=== PATIENT | female | born 1975 | race Caucasian/White ===

== ENCOUNTER 2019-08-12 16:29 | Inpatient (IN) | payer MEDICAID, SELFPAY ==
[~2019-08-12] VITALS: Ht 160 cm; Wt 106.6 kg
--- NOTE | 2019-08-12 16:32 | NUR ---
BIBA ALS TO BED 10
[2019-08-12] MEDS ORDERED: IBUPROFEN 600 MG TAB ONE (16:35)
[2019-08-12] MEDS ORDERED: ACETAMINOPHEN EXTRA STRENGTH 500 MG TAB ONE (16:36)
[2019-08-12 16:37] VITALS: BP 110/72
--- NOTE | 2019-08-12 16:53 | NUR ---
labs drawn bedside
--- NOTE | 2019-08-12 16:56 | NUR ---
Dr. Shannon evaluating pt at bedside
[2019-08-12] MEDS ORDERED: ACETAMINOPHEN EXTRA STRENGTH 500 MG TAB PO ONE (17:00)
[2019-08-12] MEDS ORDERED: NACL 0.9% 1,000 ML IV ONE (17:00)
--- NOTE | 2019-08-12 17:04 | NUR ---
Note buddyone in EDM - 08/12/19 at 1707 by MEDOF 43/F BIBA FOR FEVER, +COVID ON 08/08, TACHYCARDIA AND TACHYPNEA, COUGH. TACHYPNEIC 42 BUT APPEARS COMFORTABLE AND DENIES SOB, ARRIVES SAT 90% ON 15 NRB. DENIES PAIN. LAST TOOK ANTIPYRETIC AT 10 AM. MEDHX: KASHMIRIES
[2019-08-12] MEDS ORDERED: AZITHROMYCIN 500 MG in DEXTROSE 5% 250 ML IV ONE (17:15)
[2019-08-12] MEDS ORDERED: DEXAMETHASONE 10 MG/ML VIAL IVP ONE (17:15)
--- NOTE | 2019-08-12 17:25 | NUR ---
XRAY AT BEDSIDE
--- NOTE | 2019-08-12 17:27 | NUR ---
EMT AT BEDSIDE FOR EKG
[2019-08-12] MEDS ORDERED: AZITHROMYCIN 500 MG INJ VIAL IV ONE ×2 (17:32→17:54)
[2019-08-12] MEDS ORDERED: cefTRIAXone 1,000 MG VIAL ONE (17:33)
--- NOTE | 2019-08-12 17:38 | NUR ---
BLOOD DRAW HANDED TO SURFACER OPERATOR
--- NOTE | 2019-08-12 17:53 | NUR ---
DR. MARTIN RE-EVALUATING PT AT BEDSIDE
--- NOTE | 2019-08-12 18:04 | NUR ---
RT AT BEDSIDE FOR ABG
[2019-08-12 18:05] LABS: PROTHROMBIN TIME 9.1 secs (10.8-13.4)
[2019-08-12 18:06] LABS: ALBUMIN 2.7 g/dL (3.4-5.0); ANION GAP 16.2 (8-16); CARBON DIOXIDE 26.1 mmol/L (21-32); CREATININE 1.2 mg/dL (0.6-1.3); POTASSIUM 3.3 mmol/L (3.5-5.1); TOTAL BILIRUBIN 0.4 mg/dL (0.0-1.0)
--- NOTE | 2019-08-12 18:30 | NUR ---
PT SATURATING 86-88% ON 15L NRB. DR. MARTIN AND RT MIRANDA PARRA.
[2019-08-12 18:37] LABS: C-REACTIVE PROTEIN QUANT 20.7 mg/dL (0.0-0.9)
[2019-08-12 19:02] LABS: CKMB RELATIVE INDEX 0.1 (0.0-2.5); CREATINE KINASE MB 0.4 ng/mL (0-3.6)
--- NOTE | 2019-08-12 19:05 | NUR ---
Pt report given to FILIPE HARPER. Transfer of care at this time.
[2019-08-12 19:07] LABS: BASOPHILS % (AUTO) 0.6 % (0.0-2.0); HEMATOCRIT 40.6 % (36-48); HEMOGLOBIN 13.4 g/dL (12.0-16.0); LYMPHOCYTES # (AUTO) 0.6 K/uL (2.5-16.5); LYMPHOCYTES % (AUTO) 10.6 % (20.5-51.1); MEAN CORPUSCULAR HEMOGLOBIN 29 pg (27-31); MEAN CORPUSCULAR HGB CONC 33 g/dL (33-37); MEAN CORPUSCULAR VOLUME 88.3 fL (80-94); MONOCYTES # (AUTO) 0.3 K/uL (0.8-1.0); MONOCYTES % (AUTO) 5.2 % (1.7-9.3); NEUTROPHILS # (AUTO) 4.9 K/uL (1.8-7.7); NEUTROPHILS % (AUTO) 83.6 % (42.2-75.2); PLATELET COUNT (AUTO) 227 K/uL (140-450); RED CELL DISTRIBUTION WIDTH 13.3 % (11.6-13.7); WHITE BLOOD COUNT (AUTO) 5.9 K/uL (4.8-10.8)
--- NOTE | 2019-08-12 19:10 | NUR ---
REPORT RECEIVED FROM LEROY ABDALLA FOR CONTINUATION OF CARE.
--- NOTE | 2019-08-12 19:43 | NUR ---
per dr. gomez, pt placed on 50l 100% hfnc. pt saturation around 88-89%. no distress noted. will cont to monitor
[2019-08-12] MEDS ORDERED: ONDANSETRON 4 MG/2 ML VIAL IVP PRN (19:55)
[2019-08-12] MEDS ORDERED: ACETAMINOPHEN 325 MG TAB PO PRN (19:55)
[2019-08-12] MEDS ORDERED: HYDROcodone/APAP 7.5/325 MG 1 TAB PO PRN (19:55)
--- NOTE | 2019-08-12 20:30 | NUR ---
PT RESTING IN BED , LOCKED AND IN LOWEST POSITION, HOB ELEVATED, SIDE RAIL X 2 FOR PT SAFET. A/O X4 , BREATHING EVEN AND UNLABORED. NO ACUTE DISTRESS NOTED AT THIS TIME.
[2019-08-12] MEDS ORDERED: DOCUSATE SODIUM 100 MG GELCAP PO SCH (21:00)
[2019-08-12 21:24] LABS: FREE T4 (FREE THYROXINE) 1.21 ng/dL (0.76-1.46); MAGNESIUM 2.1 mg/dL (1.8-2.4); PHOSPHORUS 2.6 mg/dL (2.5-4.9); THYROID STIMULATING HORMONE 1.02 uIU/mL (0.34-3.74)
[2019-08-12] MEDS ORDERED: DEXTROSE 50% 50 ML SYR IVP PRN (22:00)
--- NOTE | 2019-08-12 23:00 | NUR ---
PT PLACED ON HFNC AT 50L,100% IN ER. NOW PT IS TRANSFERRED TO 106-B. HIGH FLOW PLUGGED INTO RED OUTLET. HEATER ON. PT ALSO HAS A NON REBREATHER ON TOP OF THE NASAL CANNULA. WILL CONT TO MONITOR
[2019-08-12 23:02] LABS: APPEARANCE,URINE SL CLOUDY (CLEAR); BILIRUBIN,URINE NEGATIVE (NEGATIVE); BLOOD, URINE NEGATIVE (NEGATIVE); COLOR,URINE YELLOW (YELLOW); LEUKOCYTE ESTERASE ,URINE TRACE (NEGATIVE); NITRITE, URINE NEGATIVE (NEGATIVE); UGLUCOSE NEGATIVE (NEGATIVE)
[2019-08-12 23:10] VITALS: BP 130/78
--- NOTE | 2019-08-12 23:10 | NUR ---
Patient will be admitted to care of DR. PRATT. Admited to TELEMETRY. Will go to room 106B. Belongings list completed. Report to LEROY BAUTISTA.
--- NOTE | 2019-08-12 23:10 | NUR ---
RECEIVED BEDSIDE REPORT FROM PRINCESS OLIVARES RN. PT IS AAOX4. SOB RR 35 ON NONREBREATHER MASK 15L SAT 87%. C/C HYPOXIA AND DIZZINESS X 1 DAY. COVID + ON 08/08 FROM HOME. CROATIAN SPEAKING. DX:UNSTABLE HYPOXIA, COVID-19. IV ON LAC AC 20G SL. SKIN INTACT. PT IS AMBULATORY PER RN. VS: 102 130/78 HR 87% RR 35 98.7 DENIES PAIN. EDUCATED PT ON PRONE POSITION. ORIENTED PT TO ROOM,STAFF, CALL LIGHT. WILL MONITOR CLOSELY.
[2019-08-12] MEDS: NACL 0.9% 1,000 ML IV SCH (23:49)
[2019-08-13] VITALS (15 sets, daily range): BP systolic 97–147; BP diastolic 45–90
[2019-08-13 00:11] LABS: RBC,URINE 0-5 /HPF (0-5); WBC,URINE 0-5 /HPF (0-5)
--- NOTE | 2019-08-13 00:15 | NUR ---
ASSISTED PT TO BATHROOM, O2 DROP 70%. ASSISTED PT TO BACK TO BED O2 NOW 87% ON NONREBREATHER MASK RR 34.
--- NOTE | 2019-08-13 02:08 | NUR ---
PAGED RT PT RESTLESS SAT 79-81% RR 33. RT AND I ATTEMPT PRONE NO CHANGE IN CONDITION. PAGED DR MOSES.
--- NOTE | 2019-08-13 02:09 | NUR ---
RN CALLED ME TO BEDSIDE PT IS ON HFNC W/ NRB IN PRONE POSITION FOR LAST 1O MIN SPO2 78-81% DR MOSES CAME TO BEDSIDE AND WE WILL MOVE TO ICU
--- NOTE | 2019-08-13 02:10 | NUR ---
DR MOSES ASSESSED PATIENT NEW ORDER FOR ICU TRANSFER AND BIPAP. RT AT BEDSIDE. WILL ARRANGE ICU TRANSFER.
--- NOTE | 2019-08-13 04:00 | NUR ---
TRANSFERRED PT TO ICU BED 2 WITH RT [facility] EMT JOY. GAVE REPORT TO ALEX HARPER. PT TOLERATED TRANSPORT WELL. PT UNSTABLE RR 30 SAT 79% ON NON REBREATHER MASK 15L AND HIGH FLOW 15L.
--- NOTE | 2019-08-13 04:01 | NUR ---
RECEIVED PT VIA ICU BED ON HIGH FLOW 15L AND NON REBREATHER 15L; PT AWAKE ALERT AND ORIENTED.DIVEHI SPEAKING.MONITORS ATTACHED.ST NOTED.TEMP 99.6.PLACED PT ON PRONE POSITION.PT ABLE TO MOVE ALL EXTREMITIES.DEREJE DAVIS.WILL CONTINUE TO CLOSELY MONITOR PT.
--- NOTE | 2019-08-13 04:30 | NUR ---
PT PLACED BACK ON SUPINE POSITION.HOB ELEVATED.SATURATION STILL ON 70'S TO LOW 80'S.RT PLACED PT ON BIPAP FIO2 100% AT THIS TIME. PTS CALLED.UPDATED ON PTS PRESENT CONDITION. ABLE TO SPEAK PORTUGUESE.
--- NOTE | 2019-08-13 04:58 | NUR ---
PT DID NOT TOLERATED HFNC AT 50L/100%. PT NOW PLACED ON BIPAP ON DOCUMENTED SETTINGS. BIPAP PLUGGED INTO RED OUTLET. ALARMS SET. WILL CONT TO MONITOR
--- NOTE | 2019-08-13 06:30 | NUR ---
PT AWAKE; ON BIPAP; REPOSITIONED PT TO RT SIDE; SATURATION 90'S AT THIS TIME.PT DENIES PAIN
--- NOTE | 2019-08-13 07:06 | NUR ---
FNS consult received on 08/13/19 for none given. Consult reason does not meet high risk criteria per hospital policy. Patient will be seen and assessed according to the nutrition care policy. Yessy Seo MS, RDN
--- NOTE | 2019-08-13 07:09 | NUR ---
PATIENT HAS BEEN SCREENED AND CATEGORIZED MODERATE NUTRITION RISK. PATIENT WILL BE SEEN WITHIN 3-5 DAYS OF ADMISSION. 08/15/19-08/17/19 KAYODE MARIO MS, RDN
--- NOTE | 2019-08-13 07:30 | NUR ---
RECEIVED FROM ALLISON HARPER .PT IS SLEEPING QUIETLY ON RT SIDE. BREATHING ON BIPAP O2 SAT IS AT 92% . skin dry and warm. IV FLUID ON LT. AC INFOUSING NS AT80 ML/HR.
[2019-08-13] MEDS: BLOOD GLUCOSE MONITORING 1 DEV DEV FS SCH ×4 (08:00→21:02)
--- NOTE | 2019-08-13 08:00 | NUR ---
BLOOD GLUCOSE 185 INSULIN COVER GIVEN ORDERED,.
[2019-08-13] MEDS ORDERED: MORPHINE SULFATE 2 MG/ML SYR IVP PRN (08:05)
[2019-08-13] MEDS ORDERED: MAG SULF 2000 MG/WATER PREMIX 50 ML IV PRN (08:05)
[2019-08-13] MEDS ORDERED: POTASSIUM CHLORIDE 10 MEQ TABER PO PRN (08:05)
[2019-08-13] MEDS ORDERED: LORazepam 2 MG/ML VIAL IVP PRN (08:05)
[2019-08-13] MEDS ORDERED: ACETAMINOPHEN 325 MG TAB PO PRN (08:05)
[2019-08-13] MEDS ORDERED: ZOLPIDEM 10 MG TAB PO PRN (08:05)
[2019-08-13] MEDS ORDERED: DOCUSATE SODIUM 100 MG GELCAP PO PRN (08:05)
[2019-08-13] MEDS ORDERED: ONDANSETRON 4 MG/2 ML VIAL IVP PRN (08:05)
[2019-08-13] MEDS: ENOXAPARIN 80 MG/0.8 ML SYR SUBQ SCH (09:00)
[2019-08-13] MEDS: AZITHROMYCIN 250 MG TAB PO SCH (09:00)
[2019-08-13] MEDS: ZINC SULF 220 MG CAP PO SCH ×2 (09:00→19:58)
[2019-08-13] MEDS: DEXAMETHASONE 4 MG TAB PO SCH (09:00)
[2019-08-13] MEDS: ASCORBIC ACID 500 MG TAB PO SCH (09:00)
[2019-08-13] MEDS ORDERED: AZITHROMYCIN 250 MG TAB PO SCH (09:00)
[2019-08-13 09:07] LABS: BASOPHILS % (AUTO) 0.1 % (0.0-2.0); HEMATOCRIT 39.3 % (36-48); HEMOGLOBIN 13.1 g/dL (12.0-16.0); LYMPHOCYTES # (AUTO) 0.8 K/uL (2.5-16.5); LYMPHOCYTES % (AUTO) 12.5 % (20.5-51.1); MEAN CORPUSCULAR HEMOGLOBIN 30 pg (27-31); MEAN CORPUSCULAR HGB CONC 33 g/dL (33-37); MEAN CORPUSCULAR VOLUME 88.3 fL (80-94); MONOCYTES # (AUTO) 0.5 K/uL (0.8-1.0); MONOCYTES % (AUTO) 8.6 % (1.7-9.3); NEUTROPHILS % (AUTO) 78.8 % (42.2-75.2); PLATELET COUNT (AUTO) 251 K/uL (140-450); RED BLOOD CELL COUNT(AUTO) 4.45 MIL/uL (4.20-5.40); RED CELL DISTRIBUTION WIDTH 13.1 % (11.6-13.7); WHITE BLOOD COUNT (AUTO) 6.3 K/uL (4.8-10.8)
--- NOTE | 2019-08-13 09:30 | NUR ---
VOIDED CLEAR LEON URINE. DENIE PAIN, DRY COUGH OFTEN.
[2019-08-13 09:36] LABS: ANION GAP 12.8 (8-16); CARBON DIOXIDE 29.1 mmol/L (21-32); CREATININE 0.8 mg/dL (0.6-1.3); POTASSIUM 3.9 mmol/L (3.5-5.1)
[2019-08-13 10:34] LABS: MAGNESIUM 2.2 mg/dL (1.8-2.4)
[2019-08-13 10:37] LABS: CHOL/HDL RATIO 4.5 (1-4.5)
--- NOTE | 2019-08-13 12:00 | NUR ---
BLOOD GLUCOSE 166 DR. GARCIA INFORM HESAID TOHOLD THE INSULIN COVER DUE TO PT. CAN NOT BE OFFROM BIPAP AT THE TIME.
--- NOTE | 2019-08-13 15:20 | NUR ---
PATIENT AIXA CALL AND WANT THE 18 YEARS OLD NIECE TO GET INFORMATION ABOUT PATIENT CONDITION.I TOLD HIM THAT HER THAT I CAN NOT GIVE INFORMATION TO HER. I WILL GIVED TO HER ONLY.
--- NOTE | 2019-08-13 15:30 | NUR ---
DR. LOCK IN THE UNIT . I TOLD THE I WILL HELP DR. LOCK AND WILL HAVE DR LOCK TALK TO HIM.
--- NOTE | 2019-08-13 15:40 | NUR ---
TALK TO AIXA HAYNES [[phone]][facility] MENAGERIE CARETAKER #[id number] TEL HIM THAT PATIENT IS CRITICAL IF SHE IS NOT GETTING BETTER SHE WILL BE INTUBATED. RIGHT NOW PATIENT IS BREATHING ON BI PAP AT 95%FIO2. SHE NEED TO BE RESTED.
[2019-08-13] MEDS: NACL 0.9% 1,000 ML IV SCH ×2 (17:00→23:10)
--- NOTE | 2019-08-13 17:00 | NUR ---
BLOOD GLUCOSE 167 , DR GARCIA AWARE , NO INSULIN GIVEN.
--- NOTE | 2019-08-13 18:00 | NUR ---
PT. RESTING QUIETLY DENIED PAIN.
--- NOTE | 2019-08-13 19:25 | NUR ---
RECEIVED PT FROM DAY SHIFT ON DOCUMENTED SETTINGS. BIPAP PLUGGED INTO RED OUTLET. ALARMS SET. PT IS IN NO DISTRESS. WILL CONT TO MONITOR
--- NOTE | 2019-08-13 20:00 | NUR ---
PATIENT ALERT, AWAKE AND ORIENTED, [place] SPEAKING, SR ON THE MONITOR, RECEIVING IVF NS AT 80 ML/HR, IV SITE ON LEFT HAND g#20 PATENT AND INTACT, ON BIPAP, RATE 18, FIO2 95%. PATIENT WITH INTERMITTENT NON PRODUCTIVE COUGH, ON ENHANCED PRECAUTION FOR POSITIVE COVID 19, CALL LIGHT PLACED WITHIN REACH, DENIES PAIN.
--- NOTE | 2019-08-13 20:45 | NUR ---
RECEIVED CALL FROM PATIENT'S AIXA HAYNES, UPDATES GIVEN ON PATIENT'S CURRENT CONDITION.
[2019-08-13] MEDS: INSULIN LISPRO SLIDING SCALE 100 UNITS/ML VIAL SUBQ PRN (20:52)
--- NOTE | 2019-08-13 22:09 | NUR ---
PATIENT ON LEFT LATERAL SIDE, CONTINUE ON BIPAP, WITH INTERMITTENT NON PRODUCTIVE COUGH, HOB SLIGHTLY ELEVATED, DENIES PAIN.
--- NOTE | 2019-08-13 23:54 | NUR ---
PT SATURATION 81-82%. INCREASED EPAP TO 12. PT IS ALERT AND RESPONSIVE. PT IS TACHYPNEIC HOWEVER. WILL CONT TO MONITOR
[2019-08-14] VITALS (12 sets, daily range): BP systolic 109–141; BP diastolic 63–87
--- NOTE | 2019-08-14 | NUR ---
PATIENT SLEEPING, AROUSABLE, CONTINUE ON BIPAP, FIO2 100%, PATIENT'S SATURATION SLOWLY GOING UP, HOB SLIGHTLY ELEVATED, DENIES PAIN, WILL CONTINUE TO MONITOR.
--- NOTE | 2019-08-14 00:10 | NUR ---
Assumed patient care. Patient is resting in bed. no distress noted. Will continue to monitor. Addendum: 08/14/19 at 0126 by Agency 09 LEROY RN Patient on Bipap; head of bed is elevated and repositioned to the right side for comfort.
--- NOTE | 2019-08-14 01:00 | NUR ---
Patient is resting in bed. No distress noted. Will continue to monitor.
--- NOTE | 2019-08-14 02:00 | NUR ---
Patient is resting in bed with eyes closed. No distress noted. Patient repositioned to supine. Will continue to monitor.
--- NOTE | 2019-08-14 03:50 | NUR ---
PATIENT IS RESTING IN BED AND WAS ABLE TO USE BED DE LA O. 300 MLS OF URINE OUTPUT NOTED. REPOSITIONED AND HELP CLEANED PATIENT..
--- NOTE | 2019-08-14 04:00 | NUR ---
Patient is sitting up in bed. No distress noted. Lung sounds diminished/clear bilaterally. Will continue to monitor.
[2019-08-14 04:53] LABS: BASOPHILS % (AUTO) 0.1 % (0.0-2.0); HEMATOCRIT 40.4 % (36-48); HEMOGLOBIN 13.3 g/dL (12.0-16.0); LYMPHOCYTES # (AUTO) 0.8 K/uL (2.5-16.5); LYMPHOCYTES % (AUTO) 8.7 % (20.5-51.1); MEAN CORPUSCULAR HEMOGLOBIN 29 pg (27-31); MEAN CORPUSCULAR HGB CONC 33 g/dL (33-37); MEAN CORPUSCULAR VOLUME 88.7 fL (80-94); MONOCYTES # (AUTO) 0.7 K/uL (0.8-1.0); MONOCYTES % (AUTO) 7.8 % (1.7-9.3); NEUTROPHILS # (AUTO) 7.9 K/uL (1.8-7.7); NEUTROPHILS % (AUTO) 83.4 % (42.2-75.2); PLATELET COUNT (AUTO) 303 K/uL (140-450); RED BLOOD CELL COUNT(AUTO) 4.55 MIL/uL (4.20-5.40); RED CELL DISTRIBUTION WIDTH 13.2 % (11.6-13.7); WHITE BLOOD COUNT (AUTO) 9.5 K/uL (4.8-10.8)
--- NOTE | 2019-08-14 05:00 | NUR ---
Patient is resting in bed quietly with eyes closed. No distress noted. Will continue to monitor.
[2019-08-14 05:10] LABS: ANION GAP 12.3 (8-16); CARBON DIOXIDE 28.2 mmol/L (21-32); CREATININE 0.8 mg/dL (0.6-1.3); POTASSIUM 3.5 mmol/L (3.5-5.1)
[2019-08-14 05:18] LABS: ALBUMIN 2.5 g/dL (3.4-5.0); BILIRUBIN,DIRECT 0.1 mg/dL (0.0-0.3); TOTAL BILIRUBIN 0.4 mg/dL (0.0-1.0)
--- NOTE | 2019-08-14 06:00 | NUR ---
PATIENT RESTING IN BED QUIETLY. NO DISTRESS NOTED. PATIENT STILL ON BIPAP AT 94%. WILL CONTINUE MONITOR.
[2019-08-14] MEDS: NACL 0.9% 1,000 ML IV SCH (06:21)
--- NOTE | 2019-08-14 07:29 | NUR ---
RECEIVED REPORT FROM PM SHIFT. PATIENT CURRENTLY ON RIGHT LATERAL SIDE, CONTINUE ON BIPAP ON HIGH FLOW O2 AT 95%, O2 CURRENTLY AT 93%. PT HAS INTERMITTENT NON PRODUCTIVE COUGH, HOB SLIGHTLY ELEVATED.
[2019-08-14] MEDS: BLOOD GLUCOSE MONITORING 1 DEV DEV FS SCH ×4 (08:00→21:00)
[2019-08-14] MEDS: AZITHROMYCIN 250 MG TAB PO SCH (08:10)
[2019-08-14] MEDS: ZINC SULF 220 MG CAP PO SCH ×2 (08:10→20:56)
[2019-08-14] MEDS: DEXAMETHASONE 4 MG TAB PO SCH (08:13)
[2019-08-14] MEDS: ASCORBIC ACID 500 MG TAB PO SCH (08:14)
[2019-08-14] MEDS: ENOXAPARIN 80 MG/0.8 ML SYR SUBQ SCH (08:31)
--- NOTE | 2019-08-14 10:17 | NUR ---
PT REQUESTED A BED DE LA O AND WAS ABLE TO URINATE
--- NOTE | 2019-08-14 11:25 | NUR ---
BLOOD SUGAR AT 143. NO INSULIN COVERAGE NEEDED
--- NOTE | 2019-08-14 15:46 | NUR ---
PT RESTING IN BED ON BIPAP. O2 STABLE AT 93 AT THIS TIME. SIDE RAILS UP AND BED IN LOWEST POSITION FOR SAFETY. WILL CONTINUE TO MONITOR.
--- NOTE | 2019-08-14 16:00 | NUR ---
DR. LOCK AT BEDSIDE AND WANT TO HAVE PATIENT BREATHING ON HIGH FLOW. RT AWARE,
--- NOTE | 2019-08-14 16:10 | NUR ---
CYNTHIA LOCK AT [facility] CHANGE OXYGEN SOURCE TO HIGH FLOW Addendum: 08/14/19 at 1650 by Daniel Reyes RT LUGGAGE LINER TO CHECK AVAILABILITY OF HIGH FLOW SYSTEM Addendum: 08/14/19 at 1651 by Daniel Reyes RT CYNTHIA SALDANA HFW IN 118 NOT BEING USED Addendum: 08/14/19 at 1823 by Daniel ISABEL PER ORA /LUGGAGE LINER ACTUAL LOCATION OF HFW IN 114
--- NOTE | 2019-08-14 16:49 | NUR ---
PT BS 157. NO COVERAGE NEEDED, PT IS NPO
--- NOTE | 2019-08-14 18:20 | NUR ---
ENDORSED TO NOC RT'S WITH ACKNOWLEDGEMENT TO PULL HIGH FLOW SYSTEM FROM RM 114 AND TRANSFER TO ICU-2
--- NOTE | 2019-08-14 19:19 | NUR ---
pt condition stable report give to issac garcia.
--- NOTE | 2019-08-14 19:30 | NUR ---
RECEIVED REPORT FROM RNANGELIC. PT RESTING IN BED, A/O X4. KINYARWANDA SPEAKING ONLY. DENIES PAIN UPON QUESTIONING. PUPILS 3MM, PERRL. ON BIPAP WITH FI02 @ 100%. LUNGS WITH CRACKLES THROUGHOUT. + S1, S2 UPON AUSCULTATION. BOWEL SOUNDS ACTIVE X4. NO ABD DISTENTION OR TENDERNESS NOTED. IV NOTED TO LT HAND INFUSING NS @ 80 ML/HR. PT ABLE TO USE THE BEDPAN WITH ASSISTANCE. PEDAL PULSES PALPABLE. SKIN WARM, DRY, AND INTACT. SAFETY PRECAUTIONS IN PLACE WITH BED LOW AND LOCKED. CALL LIGHT IN EASY REACH. WILL CONT TO MONITOR FOR CHANGES.
--- NOTE | 2019-08-14 19:42 | NUR ---
COVID SWAB COLLECTED WITHOUT INCIDENT, PER MD ORDERS. SENT TO LAB.
--- NOTE | 2019-08-14 20:00 | NUR ---
RT ATTEMPTED TO REMOVE BIPAP AND REPLACE WITH HIGH FLOW O2. PT UNABLE TO TOLERATE AT THIS TIME. DESATURATION DOWN IN THE 20'S. BIPAP REPLACED AND SPO2 INCREASED. WILL CONT TO MONITOR.
--- NOTE | 2019-08-14 20:35 | NUR ---
PER REPORT RECEIVED FROM AM SHIFT, PLACED PT ON HFNC. SWITCHED PT HFNC AND PT STARTED DESATURATING IN 50s. PLACED PT BACK ON BiPAP. SPO2 GRADUALLY IMPROVED TO 90%. RESIDENT CATE AT BEDSIDE AND REPORTED CHANGES TO DR. SHAW.
--- NOTE | 2019-08-14 21:00 | NUR ---
RBS 173. INSULIN ADMINISTERED ORDERED.
[2019-08-14] MEDS ORDERED: SUCCINYLCHOLINE CHLORIDE 200 MG/10 ML VIAL IVP ONE (21:10)
[2019-08-14] MEDS ORDERED: ETOMIDATE 20 MG/10 ML VIAL IVP ONE (21:10)
[2019-08-14] MEDS: INSULIN LISPRO SLIDING SCALE 100 UNITS/ML VIAL SUBQ PRN (22:23)
--- NOTE | 2019-08-14 23:35 | NUR ---
PT DESATING, RESIDENT LINDER DISCUSSING INTUBATING WITH FAMILY.
[2019-08-15] VITALS (15 sets, daily range): BP systolic 105–186; BP diastolic 64–101
[2019-08-15] MEDS: NACL 0.9% 1,000 ML IV SCH ×3 (00:10→23:54)
--- NOTE | 2019-08-15 02:00 | NUR ---
PT SATING BETWEEN 70-90 ON BIPAP. MD AWARE. NO INTUBATION AT THIS TIME. EDUCATED PT ON IMPORTANCE OF REPOSITIONING, INCLUDING PRONE POSITIONING. WILL CONT TO MONITOR.
--- NOTE | 2019-08-15 04:00 | NUR ---
BED BATH ADMINISTERED. PT MENSTRUATING AT THIS TIME. DANIEL PADS/BRIEFS GIVEN. WILL FOLLOW UP.
[2019-08-15 06:31] LABS: BASOPHILS % (AUTO) 0.2 % (0.0-2.0); HEMATOCRIT 38.9 % (36-48); HEMOGLOBIN 13.2 g/dL (12.0-16.0); LYMPHOCYTES # (AUTO) 0.7 K/uL (2.5-16.5); LYMPHOCYTES % (AUTO) 6.5 % (20.5-51.1); MEAN CORPUSCULAR HEMOGLOBIN 30 pg (27-31); MEAN CORPUSCULAR HGB CONC 34 g/dL (33-37); MONOCYTES # (AUTO) 0.6 K/uL (0.8-1.0); MONOCYTES % (AUTO) 5.6 % (1.7-9.3); NEUTROPHILS # (AUTO) 9.6 K/uL (1.8-7.7); NEUTROPHILS % (AUTO) 87.7 % (42.2-75.2); PLATELET COUNT (AUTO) 308 K/uL (140-450); RED BLOOD CELL COUNT(AUTO) 4.42 MIL/uL (4.20-5.40)
[2019-08-15] MEDS: BLOOD GLUCOSE MONITORING 1 DEV DEV FS SCH ×4 (06:50→21:00)
[2019-08-15 06:52] LABS: ANION GAP 17.2 (8-16); CARBON DIOXIDE 28.3 mmol/L (21-32); CREATININE 0.8 mg/dL (0.6-1.3); POTASSIUM 3.5 mmol/L (3.5-5.1)
--- NOTE | 2019-08-15 06:55 | NUR ---
DR. OUSMANE GARCIA IN ICU REVIEWED HHN THERAPY OK FOR OXYACETYLENE TORCH OPERATOR TO ORDER HHN THERAPY FOLLOWS: DUO Q6WW + Q4PRN FOR SOB/WHEEZE
--- NOTE | 2019-08-15 07:15 | NUR ---
REPORT GIVEN TO RASHAAD RN, SHEA AT BEDSIDE, FOR CONTINUITY OF CARE. VSS AT THIS TIME.
--- NOTE | 2019-08-15 08:00 | NUR ---
RECEIVED REPORT FROM SHEA HARPER. PT RESTING IN BED, A/O X4. SINHALA SPEAKING ONLY. DENIES PAIN UPON QUESTIONING. PT ON BIPAP WITH FI02 @ 100%. LUNGS WITH CRACKLES THROUGHOUT. TACHYPNEA. LABORED BREATHING WITH COUGHING. + S1, S2 UPON AUSCULTATION. BOWEL SOUNDS ACTIVE X4. NO ABD DISTENTION OR TENDERNESS NOTED. PT HAS IV NOTED TO LT HAND INFUSING NS @ 80 ML/HR. PT ABLE TO USE THE BEDPAN WITH ASSISTANCE. PT CURRENTLY ON MENSTRUAL CYCLE. PEDAL PULSES PALPABLE. SKIN WARM, DRY, AND INTACT. SAFETY PRECAUTIONS IN PLACE WITH BED LOW AND LOCKED. PT ENCOURAGED TO TURN Q2 HOURS. CALL LIGHT IN EASY REACH. WILL CONT TO MONITOR FOR CHANGES. WILL USE BOOKKEEPING ASSISTANT PHONE TO SPEAK WITH PT
[2019-08-15] MEDS ORDERED: ALBUTEROL SULFATE/IPRATROPIU 3 ML SOL IH PRN (08:45)
[2019-08-15] MEDS: ASCORBIC ACID 500 MG TAB PO SCH (09:19)
[2019-08-15] MEDS: ZINC SULF 220 MG CAP PO SCH ×2 (09:19→20:45)
[2019-08-15] MEDS: AZITHROMYCIN 250 MG TAB PO SCH (09:19)
[2019-08-15] MEDS: ENOXAPARIN 80 MG/0.8 ML SYR SUBQ SCH (09:19)
[2019-08-15] MEDS: DEXAMETHASONE 4 MG TAB PO SCH (09:21)
[2019-08-15] MEDS ORDERED: CRUSHER, PILL MC ONE (09:27)
--- NOTE | 2019-08-15 10:50 | NUR ---
lab at bedside
--- NOTE | 2019-08-15 11:02 | NUR ---
PAGED DR. ISMAEL NEWBY [phone] TO REVIEW [facility] SAMPLE REPORT Addendum: 08/15/19 at 1106 by Daniel Reyes RT CALL BACK NUMBER [phone]
--- NOTE | 2019-08-15 11:05 | NUR ---
CALL BACK FROM ISMAEL NEWBY REVIEWED [facility] SAMPLE REPORT, LOC AWAKE AND ALERT "SPEAKING ON PHONE", CURRENT BIPAP SETTINGS 26/11 R14 100%, CIONTINUE WITH HHN THERAPY NEW ORDER: REPOSITION PATIENT SFW TO HFW POSITION, "WATCH" MD STATES "PATIENT ON THE CUSP OF BEING INTUBATED"
--- NOTE | 2019-08-15 11:30 | NUR ---
L HAND IV LEAKING. DISCONTINUED. NEW 20G TO R AC INSERTED. NACL INFUSING INTO R AC AT 80MLS/HR.
--- NOTE | 2019-08-15 12:16 | NUR ---
USED TRANSLATER PHONE, #[phone], TO SPEAK WITH PT. CALLED PTS AND GAVE UPDATE
--- NOTE | 2019-08-15 12:17 | NUR ---
PT ASSISTED WITH BEDPAN, URINE OUTPUT 500 ML
[2019-08-15] MEDS: INSULIN LISPRO SLIDING SCALE 100 UNITS/ML VIAL SUBQ PRN ×2 (12:31→16:19)
[2019-08-15] MEDS ORDERED: ALBUTEROL SULFATE/IPRATROPIU 3 ML SOL IH SCH (13:00)
[2019-08-15] MEDS: ALBUTEROL SULFATE/IPRATROPIU 3 ML SOL IH SCH ×2 (14:12→19:00)
--- NOTE | 2019-08-15 14:12 | NUR ---
AWAKE AND ALERT RESPONSIVE TO BAIL AGENT VERBAL TOLERATING BIPAP TO MASK WITHOUT COMPLICATIONS GOOD CHEST SPONTANEOUS EXPIRATORY Vt GREATER THAN 600ml POST PER IDEAL BODY FORMULA 8CC = 410ml HHN THERAPY DECREASE IPAP TO 16 JAGJIT/RN NOTIFIED
--- NOTE | 2019-08-15 14:44 | NUR ---
J2EE ANDROID DEVELOPER NOTE: ANTHONY WAS UNABLE TO MEET PATIENT AT BEDSIDE. ANTHONY LEFT WITH AIXA HAYNES [phone]. ANTHONY WILL FOLLOW UP. Addendum: 08/16/19 at 1020 by Abdoul Chapman SS [facility] Patient: Elena LosElva vance : 1975 Age/Sex: 43/F Unit#: [id number] Room/Bed: IC02/A User: Abdoul Chapman Date: 08/16/19 10:17 Type: CM Discharge Plan Assessment Patient's Orientation Person Situation Place Time Information Provided By AIXA HAYNES - TREVOR Comments SW WAS UNABLE TO MEET WITH PATIENT DUE TO MEDICAL CONDITION. Electronic Test Technician, Realtionship and Phone Number AIXA HAYNES TREVOR [phone] [facility] Power of Production Assistant No Does Patient Have a POLST No Identifying Problems No Social Work Triggers Is A Social Work Consult Needed No Mandate Report Filed No Explanation Of Identifying Problems PATIENT IS A 43-YEAR-OLD FEMALE ADMITTED FOR PNEUMONIA AND COVID R/O. PATIENT HAS NO PERTINENT PMHX. Admitted From Home Pre-Admission Level Of Functioning Status Independent/Ambulatory Prior Resources/Services Used In Last 12 Months No Prior Resources Used Prior DME No Prior DME Used Living Situation Lives With Family House Patient Had Caregiver No Home Support No Caregiver Issues Financial Issues No Known Financial Issue Factors/Needs No D/C Needs Identified Pt/Rep Participated In Discharge Plan Yes Patient/Family Agress With Discharge Plan Yes Discharge Plan Comments TENTATIVE DISCHARGE PLAN IS FOR PATIENT TO RETURN HOME. DC Plan Status Initiated Addendum: 09/08/19 at 1343 by Abdoul Chapman SW FOLLOWED UP WITH PATIENT'S AIXA HAYNES [phone]. SW LEFT VM.
[2019-08-15] MEDS ORDERED: remdesivir COMMUNICATION ORDER 1 EA MISC MC PRN (15:55)
--- NOTE | 2019-08-15 16:00 | NUR ---
CALLED PHARMACY FOR RESEVEMIR, STATES THEY ARE RUNNING LATE AND WILL BRING ALESSIA
--- NOTE | 2019-08-15 16:20 | NUR ---
ASSISTED 0PT ONTO BEDPAN, OUTPUT 350 ML
[2019-08-15 17:17] LABS: ALBUMIN 2.5 g/dL (3.4-5.0); ANION GAP 16.3 (8-16); CARBON DIOXIDE 26.3 mmol/L (21-32); CREATININE 0.8 mg/dL (0.6-1.3); POTASSIUM 3.6 mmol/L (3.5-5.1); TOTAL BILIRUBIN 0.5 mg/dL (0.0-1.0)
[2019-08-15] MEDS ORDERED: CLINICAL MONITORING MC PRN (17:25)
[2019-08-15] MEDS ORDERED: remdesivir 200 mg in NACL 0.9% 100 ML IV SCH (18:00)
--- NOTE | 2019-08-15 19:15 | NUR ---
RECEIVED REPORT FROM RNJAGJIT. PT RESTING IN BED, A/O X4. MALDIVIAN SPEAKING ONLY. DENIES PAIN UPON QUESTIONING. PUPILS 3MM, PERRL. ON BIPAP WITH FI02 @ 100%. LUNGS WITH CRACKLES THROUGHOUT. + S1, S2 UPON AUSCULTATION. BOWEL SOUNDS ACTIVE X4. NO ABD DISTENTION OR TENDERNESS NOTED. 20G SALINE-LOCKED IV NOTED TO RT AC INFUSING NS @ 80 ML/HR. LT AC, SALINE-LOCKED, IV PATENT. PT ABLE TO USE THE BEDPAN WITH ASSISTANCE. CONTINUES ON MENSTRUAL PERIOD. PEDAL PULSES PALPABLE. SKIN WARM, DRY, AND INTACT. SAFETY PRECAUTIONS IN PLACE WITH BED LOW AND LOCKED. CALL LIGHT IN EASY REACH. WILL CONT TO MONITOR FOR CHANGES.
--- NOTE | 2019-08-15 19:25 | NUR ---
SHIFT REPORT GIVEN TO MAJO RN, TRANSFER OF CARE
--- NOTE | 2019-08-15 22:00 | NUR ---
STARTED INFUSING 1ST BAG OF CONVALESCENT PLASMA @ THIS TIME. NO IMMEDIATE REACTION OBSERVED. WILL MONITOR CLOSELY.
--- NOTE | 2019-08-15 23:00 | NUR ---
RESIDENT NIYAH CORRALES DISCUSSING INTUBATING WITH FAMILY. Addendum: 08/15/19 at 2335 by Margaret Pérez RN ERROR. WRONG DOCUMENTATION
[2019-08-16] VITALS (17 sets, daily range): BP systolic 113–159; BP diastolic 74–92
--- NOTE | 2019-08-16 | NUR ---
REMDESIVIR ADMINISTERED ORDERED @ THIS TIME. NO IMMEDIATE REACTION OBSERVED. WILL CONT TO MONITOR CLOSELY.
--- NOTE | 2019-08-16 00:56 | NUR ---
CALLED TO BEDSIDE PT DESAT MID 70s DUE TO MASK BEING LOOSE ON ONE SIDE I PROPERLY REFIT MASK PRIOR DUE TO STRAP BEING LOOSE WELL PT SEEMS TO BE COMPLIANT UNCLEAR TO WHY STRAP IS LOOSE PT SPO2 75-82 FLUCTUATION AT THIS TIME
--- NOTE | 2019-08-16 01:09 | NUR ---
EPAP TITRATED TO 12 TO ASSIST W/ OXYGENATION NO CHANGE ON IPAP SHE IS RECEIVING ADEQUATE VOLUMES AT THIS TIME SPO2 NOW READING 87% Addendum: 08/16/19 at 0127 by Cornell Irwin Jr RT IPAP TITRATED TO 17
--- NOTE | 2019-08-16 02:00 | NUR ---
ASSISTED PT TO REPOSITION. DENIES PAIN UPON QUESTIONING. SAFETY PRECAUTIONS IN PLACE WITH BED LOW AND LOCKED. CALL LIGHT IN EASY REACH. WILL CONT TO MONITOR FOR CHANGES.
--- NOTE | 2019-08-16 04:00 | NUR ---
BED BATH PROVIDED. PT CONTINUES SATING IN THE 80'S WITH BIPAP. AWARE. WILL CONT TO MONITOR.
--- NOTE | 2019-08-16 06:15 | NUR ---
REPORT GIVEN AT BEDSIDE TO RASHAAD HARPER FOR CONTINUITY OF CARE. Addendum: 08/16/19 at 0721 by Margaret Pérez RN ERROR WRONG DOCUMENTATION
[2019-08-16] MEDS: BLOOD GLUCOSE MONITORING 1 DEV DEV FS SCH ×4 (06:34→21:11)
[2019-08-16 06:47] LABS: ALBUMIN 2.4 g/dL (3.4-5.0); ANION GAP 14.1 (8-16); CARBON DIOXIDE 27.4 mmol/L (21-32); CREATININE 0.7 mg/dL (0.6-1.3); POTASSIUM 3.5 mmol/L (3.5-5.1); TOTAL BILIRUBIN 0.5 mg/dL (0.0-1.0)
[2019-08-16 06:50] LABS: BASOPHILS % (AUTO) 0.2 % (0.0-2.0); EOSINOPHILS % (AUTO) 0.1 % (0.0-4.0); HEMATOCRIT 38.5 % (36-48); HEMOGLOBIN 12.7 g/dL (12.0-16.0); LYMPHOCYTES # (AUTO) 0.6 K/uL (2.5-16.5); LYMPHOCYTES % (AUTO) 4.6 % (20.5-51.1); MEAN CORPUSCULAR HEMOGLOBIN 29 pg (27-31); MEAN CORPUSCULAR HGB CONC 33 g/dL (33-37); MEAN CORPUSCULAR VOLUME 88.2 fL (80-94); MONOCYTES # (AUTO) 0.4 K/uL (0.8-1.0); NEUTROPHILS % (AUTO) 92.1 % (42.2-75.2); PLATELET COUNT (AUTO) 260 K/uL (140-450); RED BLOOD CELL COUNT(AUTO) 4.36 MIL/uL (4.20-5.40); RED CELL DISTRIBUTION WIDTH 13.4 % (11.6-13.7); WHITE BLOOD COUNT (AUTO) 14.1 K/uL (4.8-10.8)
--- NOTE | 2019-08-16 07:15 | NUR ---
REPORT GIVEN AT BEDSIDE TO DAYSHIFT RN FOR CONTINUITY OF CARE.
--- NOTE | 2019-08-16 08:00 | NUR ---
RECEIVED REPORT FROM MAJO HARPER. PT RESTING IN BED, A/O X4. FRENCH SPEAKING ONLY. DENIES PAIN. PUPILS 3MM, PERRL. ON BIPAP WITH FI02 @ 100%. LUNGS WITH CRACKLES THROUGHOUT. + S1, S2 UPON AUSCULTATION. BOWEL SOUNDS ACTIVE X4. NO ABD DISTENTION OR TENDERNESS NOTED. 20G SALINE-LOCKED IV NOTED TO RT AC INFUSING NS @ 80 ML/HR. LT AC, SALINE-LOCKED, IV PATENT. PT ABLE TO USE THE BEDPAN WITH ASSISTANCE. CONTINUES ON MENSTRUAL PERIOD. PEDAL PULSES PALPABLE. SKIN WARM, DRY, AND INTACT. PT CONSUMED 100% CONSISTENT CARB DIET FOR DINNER PM SHIFT. NO BM LAST NIGHT. PT RECEIVED PLASMA AND RESEVEMIR PM SHIFT. SAFETY PRECAUTIONS IN PLACE WITH BED LOW AND LOCKED. CALL LIGHT IN EASY REACH. WILL CONT TO MONITOR FOR CHANGES
[2019-08-16] MEDS: ZINC SULF 220 MG CAP PO SCH ×2 (08:10→20:59)
[2019-08-16] MEDS: ASCORBIC ACID 500 MG TAB PO SCH (08:10)
[2019-08-16] MEDS: ENOXAPARIN 80 MG/0.8 ML SYR SUBQ SCH (08:11)
[2019-08-16] MEDS: DEXAMETHASONE 4 MG TAB PO SCH (08:11)
[2019-08-16] MEDS: ALBUTEROL SULFATE/IPRATROPIU 3 ML SOL IH SCH ×3 (08:24→22:05)
--- NOTE | 2019-08-16 08:33 | NUR ---
AM MEDICATIONS ADMINISTERED. TRANSLATED TO NEPALI. PT CONSUMED 237 ML OF GLUCERNA. PT DENIES PAIN. RT AT BEDSIDE.
--- NOTE | 2019-08-16 10:32 | NUR ---
CALLED DR. AMY NEFF [phone] REVIEWED ABG SAMPLE REPORT NO NEW ORDERS
--- NOTE | 2019-08-16 10:48 | NUR ---
PT ASSISTED ONTO BEDPAN 400 ML URINE OUTPUT, CONSUMED 25%BREAKFAST. ORAL CARE PROVIDED, BED LINENS CHANGED
[2019-08-16] MEDS: INSULIN LISPRO SLIDING SCALE 100 UNITS/ML VIAL SUBQ PRN ×3 (12:11→21:12)
[2019-08-16] MEDS: NACL 0.9% 1,000 ML IV SCH (12:11)
--- NOTE | 2019-08-16 13:54 | NUR ---
CALLED PHARMACY FOR SECOND PLASMA, STATES THEY ARE STILL PREPARING UNIT
--- NOTE | 2019-08-16 14:55 | NUR ---
2 NURSE CO-SIGN FOR PLASMA ADMINISTRATION, CONSENT OBTAINED. PLASMA STARTED AT 1455. WILL MONITOR FOR REACTIONS.
--- NOTE | 2019-08-16 14:55 | NUR ---
08/16/19 RD INITIAL ASSESSMENT COMPLETED PLEASE REFER TO NUTRITION ASSESSMENT UNDER CARE ACTIVITY FOR ESTIMATED NUTRITIONAL NEEDS. 1. CONTINUE CCHO MECHANICAL SOFT DIET TOLERATED 2. CONTINUE GLUCERNA TID 3. IF PATIENT IS UNABLE TO TOLERATE PO INTAKE CONSIDER NUTRITION SUPPORT 4. RD TO FOLLOW-UP 2-3 DAYS, HIGH RISK ONESIMO JACINTO RD
--- NOTE | 2019-08-16 15:10 | NUR ---
NO SIDE EFFECTS TO PLASMA, WILL CONTINUE TO MONITOR
--- NOTE | 2019-08-16 15:45 | NUR ---
PLASMA INFUSION ENDED
[2019-08-16] MEDS: remdesivir 100 mg in NACL 0.9% 100 ML IV SCH (18:31)
--- NOTE | 2019-08-16 19:15 | NUR ---
RECEIVED REPORT FROM RNJAGJIT. PT IN BED USING CELL PHONE, A/O X4. SLOVAK SPEAKING ONLY. DENIES PAIN UPON QUESTIONING. PUPILS 3MM, PERRL. ON BIPAP WITH FI02 @ 100%. SPO2 85%. LUNGS WITH CRACKLES THROUGHOUT. +S1, S2 UPON AUSCULTATION. BOWEL SOUNDS ACTIVE X4. NO ABD DISTENTION OR TENDERNESS NOTED. 20G SALINE-LOCKED IV NOTED TO RT AC INFUSING NS @ 80 ML/HR. LT AC, SALINE-LOCKED, IV PATENT. PT ABLE TO USE THE BEDPAN WITH ASSISTANCE. CONTINUES ON MENSTRUAL PERIOD. PEDAL PULSES PALPABLE. SKIN WARM, DRY, AND INTACT. SAFETY PRECAUTIONS IN PLACE WITH BED LOW AND LOCKED. CALL LIGHT IN EASY REACH. WILL CONT TO MONITOR FOR CHANGES.
--- NOTE | 2019-08-16 21:00 | NUR ---
RBS 225 AT THIS TIME. INSULIN ADMINISTERED ORDERED. BED LOW AND LOCKED. CALL LIGHT WITHIN EASY REACH. WILL CONT TO MONITOR.
--- NOTE | 2019-08-16 22:07 | NUR ---
RECEIVED PT ON BIPAP. SETTINGS 17/12, R14 AND FIO2 100%. PT IS AWAKE AND ALERT IN BED WATCHING TV. PT IS TACHYPNEIC AT THIS TIME. BIPAP IS PLUGGED INTO A RED OUTLET WITH ALARMS ON AND FUNCTIONING. WILL CONTINUE TO MONITOR.
[2019-08-17] VITALS (13 sets, daily range): BP systolic 113–158; BP diastolic 46–112
--- NOTE | 2019-08-17 | NUR ---
ASSISTED PT TO REPOSITION. VOIDED IN BEDPAN WITH ASSISTANCE. CONTINUES ON MENSTRUAL PERIOD. DENIES PAIN UPON QUESTIONING. SPO2 IN THE 80S. MD AWARE. SAFETY PRECAUTIONS IN PLACE WITH BED LOW AND LOCKED. CALL LIGHT IN EASY REACH. WILL CONT OT MONITOR FOR CHANGES.
--- NOTE | 2019-08-17 01:10 | NUR ---
PT DESATURATING TO MID 80'S MADE AWARE. WILL INCREASE EPAP. AND PRN BREATHING TX TO BE ADMINISTERED. WILL CONTINUE TO MONITOR.
--- NOTE | 2019-08-17 02:00 | NUR ---
EDUCATED PT ON IMPORTANCE OF REPOSITIONING. PT VERBALIZED UNDERSTANDING. DENIES PAIN. WILL CONT TO MONITOR
[2019-08-17] MEDS: NACL 0.9% 1,000 ML IV SCH ×2 (02:10→14:47)
--- NOTE | 2019-08-17 04:00 | NUR ---
SPONGE BATH PROVIDED. DENIES PAIN. WILL CONT TO MONITOR FOR CHANGES
--- NOTE | 2019-08-17 05:26 | NUR ---
PT REMAINS ON BIPAP AT THIS TIME. NOT IN ANY DISTRESS PT ASLEEP SPO2 88%.
[2019-08-17 06:30] LABS: BASOPHILS % (AUTO) 0.3 % (0.0-2.0); EOSINOPHILS % (AUTO) 0.3 % (0.0-4.0); HEMATOCRIT 37.4 % (36-48); HEMOGLOBIN 12.4 g/dL (12.0-16.0); LYMPHOCYTES # (AUTO) 0.9 K/uL (2.5-16.5); LYMPHOCYTES % (AUTO) 5.5 % (20.5-51.1); MEAN CORPUSCULAR HEMOGLOBIN 29 pg (27-31); MEAN CORPUSCULAR HGB CONC 33 g/dL (33-37); MEAN CORPUSCULAR VOLUME 87.6 fL (80-94); MONOCYTES # (AUTO) 0.4 K/uL (0.8-1.0); MONOCYTES % (AUTO) 2.8 % (1.7-9.3); NEUTROPHILS # (AUTO) 14.2 K/uL (1.8-7.7); NEUTROPHILS % (AUTO) 91.1 % (42.2-75.2); PLATELET COUNT (AUTO) 263 K/uL (140-450); RED BLOOD CELL COUNT(AUTO) 4.27 MIL/uL (4.20-5.40); RED CELL DISTRIBUTION WIDTH 12.9 % (11.6-13.7); WHITE BLOOD COUNT (AUTO) 15.5 K/uL (4.8-10.8)
[2019-08-17] MEDS: BLOOD GLUCOSE MONITORING 1 DEV DEV FS SCH ×4 (06:34→22:30)
--- NOTE | 2019-08-17 06:40 | NUR ---
RBS 114 AT THIS TIME. NO INSULIN ADMINISTERED PER MD ORDER. WILL CONT TO MONITOR
[2019-08-17 06:56] LABS: ANION GAP 14.2 (8-16); CARBON DIOXIDE 28.1 mmol/L (21-32); CREATININE 0.6 mg/dL (0.6-1.3); POTASSIUM 3.3 mmol/L (3.5-5.1)
--- NOTE | 2019-08-17 07:14 | NUR ---
RECEIVED REPORT FROM MAJO HARPER. PT RESTING IN BED, A/O X4. SAMI SPEAKING ONLY. DENIES PAIN. ON BIPAP WITH FI02 @ 100%. LUNGS WITH CRACKLES THROUGHOUT. + S1, S2 UPON AUSCULTATION. BOWEL SOUNDS ACTIVE X4. NO ABD DISTENTION OR TENDERNESS NOTED. 20G SALINE-LOCKED IV NOTED TO RT AC INFUSING NS @ 80 ML/HR. LT AC, SALINE-LOCKED, IV PATENT. PT ABLE TO USE THE BEDPAN WITH ASSISTANCE. CONTINUES ON MENSTRUAL PERIOD. PEDAL PULSES PALPABLE. SKIN WARM, DRY, AND INTACT. PT ON CONSISTENT CARB DIET WITH GLUCERNA SUPPLEMENT. PT RECEIVED SECOND PLASMA AND REDESEMIR YESTERDAY DAY SHIFT. SAFETY PRECAUTIONS IN PLACE WITH BED LOW AND LOCKED. CALL LIGHT IN EASY REACH. WILL CONT TO MONITOR FOR CHANGES
[2019-08-17 07:17] LABS: ALBUMIN 2.5 g/dL (3.4-5.0); BILIRUBIN,DIRECT 0.2 mg/dL (0.0-0.3); TOTAL BILIRUBIN 0.5 mg/dL (0.0-1.0)
[2019-08-17] MEDS: DEXAMETHASONE 4 MG TAB PO SCH (09:07)
[2019-08-17] MEDS: ZINC SULF 220 MG CAP PO SCH ×2 (09:07→22:00)
[2019-08-17] MEDS: ASCORBIC ACID 500 MG TAB PO SCH (09:07)
[2019-08-17] MEDS: ENOXAPARIN 80 MG/0.8 ML SYR SUBQ SCH (09:08)
[2019-08-17] MEDS: ALBUTEROL SULFATE/IPRATROPIU 3 ML SOL IH SCH ×3 (09:10→20:16)
--- NOTE | 2019-08-17 11:18 | NUR ---
DISCHARGE PLANNING: THIS IS A 43 YO FEMALE FROM HOME, WHO CAME IN DUE TO FEVERS AND SOB. NO PAST MEDICAL HISTORY. CURRENT LABS INCLUDE WBC 15.5, H/H 12.4/37.4, BUN/CREA 141/3.3, BUN/CREA 13/0.6, ALB 2.5. COVID POSITIVE. ON REMDESIVIR, DECADRON. BLOOD CS NO GROWTH AFTER 48 HOURS. ON BIPAP 100% FIO2. ID, CARDIO AND PULMO CONSULTS IN PLACE. DC PLAN PENDING ON PATIENT'S RESPONSE TO TREATMENT. Addendum: 08/18/19 at 1224 by Dania Almendarez CM CURRENT CXR SHOWED INTERVAL IMPROVEMENT OF BILATERAL PULMONARY OPACITIES, WITH HAZY INFILTRATES IN THE LOWER LUNG ZONES. ON BIPAP, FIO2 100%, O2 SAT 91%. CURRENT LABS INCLUDE WBC 13.7, H/H 13.0/39.7, NA/K 137/4.0, 15/0.8 AND ALB 2.4. D DIMER 4560, FIBRINOGEN 500. DECADRON, REMDESIVIR. PULMO, CARDIO AND ID CONSULTS IN PLACE. Addendum: 08/19/19 at 1101 by Dania Almendarez CM CURRENT LABS INCLUDE WBC 13.9, H/H 12.8/38.7, NA/K 139/3.9, BUN/CREA 10/0.6, ALB 2.4, CRP 21.4. ON BIPAP 100% FIO2, O2 SAT 86%. ON REMDESIVIR, DECADRON. SEEN BY ID - TO CONTINUE CURRENT THERAPY. Addendum: 08/19/19 at 1132 by Cherrie Suarez CM RECEIVED [facility] EVAL, FAXED PATIENTS PACKET TO [facility]. WILL FOLLOW UP Addendum: 08/19/19 at 1319 by Dania Almendarez CM [facility] THEY ARE NOT ABLE TO TAKE MEDICAL PATIENTS AT THIS TIME. THEY CAN ONLY TAKE ETT TO VENT BUT NOT COVID POSITIVE PATIENTS. Addendum: 08/19/19 at 1341 by Dania Almendarez CM DR. PARKS MADE AWARE. Addendum: 08/22/19 at 1239 by Dania Almendarez CM CURRENT LABS INCLUDE WBC 16.3, H/H 14.5/44.1, NA/K 138/3.8, BUN/CREA 15/0.7, ALB 2.7. ON BIPAP O2 SAT 94%. ON ZOSYN, DECADRON. BLOOD CS NO GROWTH. URINE CS MIXED WITH UROGENITAL INNA. DC PLAN PENDING ON PATIENT'S RESPONSE TO TREATMENT. Addendum: 08/23/19 at 1433 by Dania Almendarez CM ON BIPAP, FIO2 100%, O2 SAT 92-94%. ON ZOSYN, DECADRON. CURRENT CXR SHOWED SLIGHT IMPROVEMENT IN DIFFUSE PATCHY EDEMA VS INFILTRATEIN THE LUNG BASE WHICH MAYBE RELATED TO IMPROVED AERATION. Addendum: 08/24/19 at 1557 by Dania Almendarez CM ON BIPAP STILL. SEEN BY JANETH - DOWNGRADE TO TELE ON MONITOR BED. STILL ON ZOSYN, DECADRON. Addendum: 09/01/19 at 1207 by Dania Almendarez CM RECEIVED A CALL FROM [facility], STATING THAT THEY ARE NOT ABLE TO ACCEPT STRAIGHT MEDICAL AND COVID POSITIVE PATIENTS, ONLY ETT BUT NO COVID. Addendum: 09/06/19 at 1540 by Dania Almendarez CM ON HIGH FLOW O2, O2 SAT 88%. ON SOLU MEDROL. PER ATTENDING, CONT HIGH FLOW 02, WEAN IF POSSIBLE. PULMO AND ID CONSULTS IN PLACE.
[2019-08-17] MEDS: INSULIN LISPRO SLIDING SCALE 100 UNITS/ML VIAL SUBQ PRN ×3 (11:39→22:37)
--- NOTE | 2019-08-17 15:07 | NUR ---
PT ASSISTED ONTO BEDPAN. PT HAD GOOD APPETITE FOR BREAKFAST. DENIES PAIN. HOB ELEVATED. PT CURRENTLY WATCHING TV.
[2019-08-17] MEDS: remdesivir 100 mg in NACL 0.9% 100 ML IV SCH (17:45)
[2019-08-17] MEDS ORDERED: POTASSIUM CHLORIDE 10 MEQ TABER PO ONE (22:40)
[2019-08-18] VITALS (12 sets, daily range): BP systolic 35–166; BP diastolic 70–102
[2019-08-18] MEDS: NACL 0.9% 1,000 ML IV SCH ×2 (03:30→16:00)
[2019-08-18 06:07] LABS: LD2 FRACTION 27 % (25-40); LD5 FRACTION 13 % (4-20)
[2019-08-18 06:54] LABS: BASOPHILS # (AUTO) 0.1 K/uL (0.00-0.22); BASOPHILS % (AUTO) 0.4 % (0.0-2.0); EOSINOPHILS % (AUTO) 0.1 % (0.0-4.0); HEMATOCRIT 39.7 % (36-48); LYMPHOCYTES # (AUTO) 0.6 K/uL (2.5-16.5); LYMPHOCYTES % (AUTO) 4.5 % (20.5-51.1); MEAN CORPUSCULAR HEMOGLOBIN 29 pg (27-31); MEAN CORPUSCULAR HGB CONC 33 g/dL (33-37); MEAN CORPUSCULAR VOLUME 88.2 fL (80-94); MONOCYTES # (AUTO) 0.3 K/uL (0.8-1.0); MONOCYTES % (AUTO) 2.5 % (1.7-9.3); NEUTROPHILS # (AUTO) 12.7 K/uL (1.8-7.7); NEUTROPHILS % (AUTO) 92.5 % (42.2-75.2); PLATELET COUNT (AUTO) 289 K/uL (140-450); RED CELL DISTRIBUTION WIDTH 13.2 % (11.6-13.7); WHITE BLOOD COUNT (AUTO) 13.7 K/uL (4.8-10.8)
[2019-08-18 07:19] LABS: ALBUMIN 2.4 g/dL (3.4-5.0); ANION GAP 11.5 (8-16); CARBON DIOXIDE 29.5 mmol/L (21-32); CREATININE 0.8 mg/dL (0.6-1.3); MAGNESIUM 2.2 mg/dL (1.8-2.4); PHOSPHORUS 3.1 mg/dL (2.5-4.9); TOTAL BILIRUBIN 0.4 mg/dL (0.0-1.0)
[2019-08-18] MEDS: ALBUTEROL SULFATE/IPRATROPIU 3 ML SOL IH SCH ×3 (07:42→19:59)
--- NOTE | 2019-08-18 07:49 | NUR ---
RECEIVED ON A BIPAP VISION PLUGGED INTO RED OUTLET TOLERATING WELL WITHOUT INCIDENT TO A MEDIUM FACIAL MASK SECURED WITH HEAD GEAR BED POSITION 30 DEGREES AMBU BAG AT BEDSIDE LOC AWAKE AND ALERT RESPONSIVE GOOD CHEST RISE AIRWAY PATENT
[2019-08-18] MEDS: BLOOD GLUCOSE MONITORING 1 DEV DEV FS SCH ×3 (08:30→21:00)
--- NOTE | 2019-08-18 08:30 | NUR ---
AWAKE ALET O2 SAT 112 NO INSULIN COVER GIVEN PO MED TAKEN ABLE TO DRINK FLUID O2 SAT DECREASE QUICKLY WHEN OPEN THE MASK. Addendum: 08/18/19 at 1946 by Meng Clements RN AWAKE ALERT BLOOD GLUCOSE 112 NO NO INSULIN COVER.
[2019-08-18] MEDS: ZINC SULF 220 MG CAP PO SCH ×2 (09:42→21:10)
[2019-08-18] MEDS: DEXAMETHASONE 4 MG TAB PO SCH (09:42)
[2019-08-18] MEDS: ASCORBIC ACID 500 MG TAB PO SCH (09:46)
[2019-08-18] MEDS: ENOXAPARIN 80 MG/0.8 ML SYR SUBQ SCH (09:48)
--- NOTE | 2019-08-18 11:38 | NUR ---
ASLEEP RESTING COMFORTABLY GOOD CHEST RISE REMAINS ON BIPAP TO MASK SATURATION 88% ON FIO2 100% HR 122 BPM 38
--- NOTE | 2019-08-18 12:00 | NUR ---
ABLE TO EAT ABOUT 20 % OF HER LUNCH REMAIN ON BIPAP 100% FIO2 O2 SAT IS 88% VOIDING FREELY.
--- NOTE | 2019-08-18 14:16 | NUR ---
08/18/19 RD FOLLOW UP COMPLETED PLEASE REFER TO NUTRITION ASSESSMENT UNDER CARE ACTIVITY FOR ESTIMATED NUTRITIONAL NEEDS. 1. RECOMMEND PUREE CCHO 60GM DIET TOLERATED 2. RECOMMEND GLUCERNA TID WITH THRIVE GELATO TID 3. IF PATIENT IS UNABLE TO TOLERATE PO INTAKE CONSIDER NUTRITION SUPPORT WITH VITAL 1.2 @ 65 ML/HR X 24 HR WITH 100 Q4H FREE WATER FLUSH -THIS WILL PROVIDE 1265 ML OF WATER, 1872 CALORIES AND 117 GM OF PROTEIN/DAY. 4. RD TO FOLLOW-UP 2-3 DAYS, HIGH RISK ONESIMO JACINTO RD
--- NOTE | 2019-08-18 17:00 | NUR ---
BLOOD GLUCOSE 265 INSULIN COVER GIVEN ORDERED.DINNER TOOK ABOUT 40% OF THE MARYLU.
--- NOTE | 2019-08-18 17:30 | NUR ---
REMAIN ON BIPAP 18/15 FIO2 95%.
[2019-08-18] MEDS: remdesivir 100 mg in NACL 0.9% 100 ML IV SCH (17:57)
--- NOTE | 2019-08-18 19:20 | NUR ---
RECEIVED PT FROM DAY SHIFT ON DOCUMENTED SETTING. BIPAP PLUGGED INTO RED OUTLET. BMV AT BEDSIDE. ALARMS SET. PT IN NO DISTRESS. WILL CONT TO MONITOR
--- NOTE | 2019-08-18 19:45 | NUR ---
REPORT GIVED TO TERENCE HARPER.
--- NOTE | 2019-08-18 20:00 | NUR ---
BLOOD SUGAR 287. SLIDING SCALE INSULIN PROTOCOL INITIATED.
[2019-08-18] MEDS: INSULIN LISPRO SLIDING SCALE 100 UNITS/ML VIAL SUBQ PRN (21:02)
--- NOTE | 2019-08-18 22:11 | NUR ---
PT HELPED ONTO BEDPAN TO URINATE. NO FURTHER NEEDS AT THIS TIME. CONSTANT V/S MONITORING IN PLACE.
[2019-08-19] VITALS (19 sets, daily range): BP systolic 114–142; BP diastolic 60–86
[2019-08-19 04:44] LABS: BARBITURATE, URINE NEGATIVE ng/ml (NEG <=200); BENZODIAZEPINE, URINE NEGATIVE ng/mL (NEG <=200); CANNABINOID, URINE NEGATIVE ng/mL (NEG <=50); COCAINE, URINE NEGATIVE ng/mL (NEG <=300); OPIATE, URINE NEGATIVE ng/mL (NEG <=2000); PHENCYCLIDINE SCREEN,URINE NEGATIVE ng/mL (NEG <=25)
[2019-08-19 06:41] LABS: BASOPHILS % (AUTO) 0.2 % (0.0-2.0); EOSINOPHILS % (AUTO) 0.1 % (0.0-4.0); HEMATOCRIT 38.7 % (36-48); HEMOGLOBIN 12.8 g/dL (12.0-16.0); LYMPHOCYTES # (AUTO) 0.5 K/uL (2.5-16.5); LYMPHOCYTES % (AUTO) 3.8 % (20.5-51.1); MEAN CORPUSCULAR HEMOGLOBIN 29 pg (27-31); MEAN CORPUSCULAR HGB CONC 33 g/dL (33-37); MEAN CORPUSCULAR VOLUME 88.8 fL (80-94); MONOCYTES # (AUTO) 0.5 K/uL (0.8-1.0); MONOCYTES % (AUTO) 3.6 % (1.7-9.3); NEUTROPHILS # (AUTO) 12.8 K/uL (1.8-7.7); NEUTROPHILS % (AUTO) 92.3 % (42.2-75.2); PLATELET COUNT (AUTO) 312 K/uL (140-450); RED BLOOD CELL COUNT(AUTO) 4.36 MIL/uL (4.20-5.40); RED CELL DISTRIBUTION WIDTH 13.2 % (11.6-13.7); WHITE BLOOD COUNT (AUTO) 13.9 K/uL (4.8-10.8)
[2019-08-19] MEDS: NACL 0.9% 1,000 ML IV SCH ×3 (06:51→21:00)
[2019-08-19] MEDS: BLOOD GLUCOSE MONITORING 1 DEV DEV FS SCH ×4 (07:11→21:00)
--- NOTE | 2019-08-19 07:11 | NUR ---
BLOOD SUGAR 144. NO INSULIN COVERAGE NEEDED. [facility].
[2019-08-19 07:30] LABS: ALBUMIN 2.4 g/dL (3.4-5.0); ANION GAP 13.9 (8-16); CREATININE 0.6 mg/dL (0.6-1.3); MAGNESIUM 2.2 mg/dL (1.8-2.4); PHOSPHORUS 3.7 mg/dL (2.5-4.9); POTASSIUM 3.9 mmol/L (3.5-5.1); TOTAL BILIRUBIN 0.5 mg/dL (0.0-1.0)
--- NOTE | 2019-08-19 08:00 | NUR ---
BLOOD GLUCOSE 166 INSULIN COVER GIVEN ORDERED.
[2019-08-19] MEDS: ALBUTEROL SULFATE/IPRATROPIU 3 ML SOL IH SCH ×3 (08:04→20:03)
--- NOTE | 2019-08-19 08:04 | NUR ---
RECEIVED ON A [employer] V60 BIPAP PLUGGED INTO RED OUTLET TOLERATING WELL WITHOUT COMPLICATIONS TO A SMALL FACIAL MASK SECURED WITH HEAD GEAR AMBU BAG AT BEDSIDE LOC ASLEEP RESTING COMFORTABLY GOOD CHEST RISE AIRWAY PATENT
[2019-08-19] MEDS: ZINC SULF 220 MG CAP PO SCH ×2 (09:11→21:00)
[2019-08-19] MEDS: ASCORBIC ACID 500 MG TAB PO SCH (09:11)
[2019-08-19] MEDS: ENOXAPARIN 80 MG/0.8 ML SYR SUBQ SCH (09:13)
[2019-08-19] MEDS: guaiFENesin 600 MG TABER PO SCH ×2 (11:30→21:00)
--- NOTE | 2019-08-19 12:00 | NUR ---
BLOOD GLUCOSE 184 INSULIN COVER GIVEN, LUNCH TOOK ABOUT 40% VOIDING IN BEDPAN. DENIED PAIN.
--- NOTE | 2019-08-19 16:30 | NUR ---
BLOOD GLUCOSE 263 INSULIN COVER GIVEN ORDERED.
[2019-08-19] MEDS: remdesivir 100 mg in NACL 0.9% 100 ML IV SCH (18:15)
--- NOTE | 2019-08-19 19:30 | NUR ---
REPORT GIVE TO TERENCE HARPER.
--- NOTE | 2019-08-19 20:46 | NUR ---
RECVD PT ON DOCUMENTED SETTING. BIPAP PLUGGED INTO RED OUTLET. BMV AT BEDSIDE.ALARMS SET. NO DISTRESS NOTED. WILL CONT TO MONITOR
--- NOTE | 2019-08-19 21:15 | NUR ---
BLOOD SUGAR 241. INSULIN COVERAGE AT THIS TIME.
[2019-08-19] MEDS: INSULIN LISPRO SLIDING SCALE 100 UNITS/ML VIAL SUBQ PRN (22:43)
--- NOTE | 2019-08-19 23:00 | NUR ---
PT HAD BOWEL MOVEMENT. SLIGHTLY SOFT AND DARK COLORED. NO PAIN WHEN POOPING PER THE PT STATEMENT.
[2019-08-20] VITALS (16 sets, daily range): BP systolic 98–142; BP diastolic 52–84
[2019-08-20 06:36] LABS: BASOPHILS % (AUTO) 0.3 % (0.0-2.0); EOSINOPHILS # (AUTO) 0.1 K/uL (0-0.4); EOSINOPHILS % (AUTO) 0.8 % (0.0-4.0); HEMATOCRIT 41.7 % (36-48); HEMOGLOBIN 13.5 g/dL (12.0-16.0); LYMPHOCYTES # (AUTO) 0.7 K/uL (2.5-16.5); LYMPHOCYTES % (AUTO) 4.1 % (20.5-51.1); MEAN CORPUSCULAR HEMOGLOBIN 29 pg (27-31); MEAN CORPUSCULAR HGB CONC 32 g/dL (33-37); MEAN CORPUSCULAR VOLUME 88.7 fL (80-94); MONOCYTES # (AUTO) 0.5 K/uL (0.8-1.0); NEUTROPHILS # (AUTO) 14.9 K/uL (1.8-7.7); NEUTROPHILS % (AUTO) 91.8 % (42.2-75.2); PLATELET COUNT (AUTO) 370 K/uL (140-450); RED BLOOD CELL COUNT(AUTO) 4.71 MIL/uL (4.20-5.40); RED CELL DISTRIBUTION WIDTH 13.5 % (11.6-13.7); WHITE BLOOD COUNT (AUTO) 16.2 K/uL (4.8-10.8)
--- NOTE | 2019-08-20 07:00 | NUR ---
BLOOD SUGAR 121. NO INSULIN COVERAGE AT THIS TIME.
--- NOTE | 2019-08-20 07:00 | NUR ---
ASSIGNED TO PT WITH 0 HOURS OF ICU ORIENTATION.
--- NOTE | 2019-08-20 07:00 | NUR ---
ASSIGNED TO PT WITH 0 HOURS OF ICU ORIENTATION.
--- NOTE | 2019-08-20 07:00 | NUR ---
REPORT GIVEN TO POOJA HARPER. ASSUMED PT CARE AT THIS TIME.
[2019-08-20 07:01] LABS: ALBUMIN 2.5 g/dL (3.4-5.0); ANION GAP 12.6 (8-16); CARBON DIOXIDE 28.9 mmol/L (21-32); CREATININE 0.6 mg/dL (0.6-1.3); MAGNESIUM 2.1 mg/dL (1.8-2.4); PHOSPHORUS 3.9 mg/dL (2.5-4.9); POTASSIUM 3.5 mmol/L (3.5-5.1); TOTAL BILIRUBIN 0.5 mg/dL (0.0-1.0)
[2019-08-20] MEDS: BLOOD GLUCOSE MONITORING 1 DEV DEV FS SCH ×4 (07:01→20:44)
[2019-08-20] MEDS: ALBUTEROL SULFATE/IPRATROPIU 3 ML SOL IH SCH ×3 (07:31→14:12)
--- NOTE | 2019-08-20 08:15 | NUR ---
BREAKFAST TRAY PLACED AT BEDSIDE. ASSISTED PT WITH ADMIN OF PO MEDS WELL ASSISTED PT WITH BREAKFAST. SP02 REMAINED ABOVE 84% DURING MEAL. RESP LABORED AND SYMMETRICAL. PT DENIES ANY PAIN AT THIS TIME. VSS. AAOX4. PT POSITIONED FOR COMFORT.
[2019-08-20] MEDS: ACETYLCYSTEINE 10% (100 MG/ML) 100 MG/ML VIAL INH SCH ×2 (08:42→14:12)
[2019-08-20] MEDS: ASCORBIC ACID 500 MG TAB PO SCH (09:18)
[2019-08-20] MEDS: VITAMIN D 400 IU TAB PO SCH (09:18)
[2019-08-20] MEDS: guaiFENesin 600 MG TABER PO SCH ×2 (09:18→20:44)
[2019-08-20] MEDS: ZINC SULF 220 MG CAP PO SCH ×2 (09:18→20:44)
[2019-08-20] MEDS: ENOXAPARIN 80 MG/0.8 ML SYR SUBQ SCH (09:19)
--- NOTE | 2019-08-20 10:49 | NUR ---
08/20/19 RD FOLLOW UP COMPLETED PLEASE REFER TO NUTRITION ASSESSMENT UNDER CARE ACTIVITY FOR ESTIMATED NUTRITIONAL NEEDS. 1. CONTINUE PUREE CCHO 60GM DIET TOLERATED 2. RECOMMEND GLUCERNA TID WITH THRIVE GELATO TID 3. IF PATIENT IS UNABLE TO TOLERATE PO INTAKE CONSIDER NUTRITION SUPPORT WITH VITAL 1.2 @ 65 ML/HR X 24 HR WITH 100 Q4H FREE WATER FLUSH -THIS WILL PROVIDE 1265 ML OF WATER, 1872 CALORIES AND 117 GM OF PROTEIN/DAY. 4. RD TO FOLLOW-UP 2-3 DAYS, HIGH RISK AMBROCIO ALDRIDGE RD
[2019-08-20] MEDS: INSULIN LISPRO SLIDING SCALE 100 UNITS/ML VIAL SUBQ PRN ×3 (11:49→20:55)
--- NOTE | 2019-08-20 11:53 | NUR ---
BLOOD GLUCOSE: 215, COVERED WITH 4 UNITS OF INSULIN.. PROVIDED PT WITH WATER, AND LUNCH MEAL TRAY. VSS. PT DENIES ANY PAIN AT THIS TIME
--- NOTE | 2019-08-20 12:30 | NUR ---
ASSISTED PT IN REPOSITIONING SELF. VSS. PT DENIES ANY PAIN.
--- NOTE | 2019-08-20 13:00 | NUR ---
ASSISTED PT WITH LUNCH MEAL TRAY. SP02 87% ON BIPAP. PLACED PT ON BEDPAN FOR URINATION. ALL NEEDS MET AT THIS TIME
--- NOTE | 2019-08-20 15:00 | NUR ---
SPOKE WITH PTS MARYJANE ON PHONE TO UPDATE ON STATUS OF PT
[2019-08-20] MEDS: NACL 0.9% 1,000 ML IV SCH (17:52)
--- NOTE | 2019-08-20 19:32 | NUR ---
RECIEVED REPORT FROM POOJA HARPER. ASSUMED PT CARE AT THIS TIME.
--- NOTE | 2019-08-20 20:45 | NUR ---
BLOOD SUGAR 202. INSULIN COVERAGE NEEDED. WILL CONTINUE TO MONITOR.
--- NOTE | 2019-08-20 21:00 | NUR ---
PT PLACED ON HIGH FLOW N/C ON 60L/MIN PT TOLERATING WELL WITH SATS OF 85-88%
--- NOTE | 2019-08-20 21:10 | NUR ---
RECOMMENDED HFNC TO DR. PARKS, PT PLACED ON 60L/100%. PT SATURATION IS ANYWHERE FROM 90-91%. NO DISTRESS NOTED. WILL CONT TO MONITOR
--- NOTE | 2019-08-20 21:15 | NUR ---
DANIEL CARE PERFORMED. TOLERATED WELL.
[2019-08-21] VITALS (15 sets, daily range): BP systolic 107–154; BP diastolic 59–90
--- NOTE | 2019-08-21 | NUR ---
PT HELPED ONTO A BEDPAN TO URINATE.
--- NOTE | 2019-08-21 02:20 | NUR ---
NOTED PT SATURATION DECREASING TO 75% ON HIGH FLOW N/C. RT CONTACTED.
--- NOTE | 2019-08-21 02:29 | NUR ---
DR. NEFF MADE AWARE OF PT STATUS AND RESPIRATORY INTERVENTION.
--- NOTE | 2019-08-21 04:12 | NUR ---
PT REMAINS ON BIPAP. NO CHANGES MADE. ON THE SETTINGS. ALARMS SET. SATURATION 85%. NO DISTRESS NOTED. WILL CONT TO MONITOR
[2019-08-21 06:51] LABS: BASOPHILS # (AUTO) 0.1 K/uL (0.00-0.22); BASOPHILS % (AUTO) 0.4 % (0.0-2.0); EOSINOPHILS # (AUTO) 0.3 K/uL (0-0.4); EOSINOPHILS % (AUTO) 1.6 % (0.0-4.0); HEMATOCRIT 42.8 % (36-48); HEMOGLOBIN 13.9 g/dL (12.0-16.0); LYMPHOCYTES # (AUTO) 0.7 K/uL (2.5-16.5); LYMPHOCYTES % (AUTO) 3.7 % (20.5-51.1); MEAN CORPUSCULAR HEMOGLOBIN 28 pg (27-31); MEAN CORPUSCULAR HGB CONC 32 g/dL (33-37); MEAN CORPUSCULAR VOLUME 87.8 fL (80-94); MONOCYTES # (AUTO) 0.6 K/uL (0.8-1.0); MONOCYTES % (AUTO) 3.6 % (1.7-9.3); NEUTROPHILS # (AUTO) 16.2 K/uL (1.8-7.7); NEUTROPHILS % (AUTO) 90.7 % (42.2-75.2); PLATELET COUNT (AUTO) 392 K/uL (140-450); RED BLOOD CELL COUNT(AUTO) 4.88 MIL/uL (4.20-5.40); RED CELL DISTRIBUTION WIDTH 13.6 % (11.6-13.7); WHITE BLOOD COUNT (AUTO) 17.8 K/uL (4.8-10.8)
[2019-08-21] MEDS: BLOOD GLUCOSE MONITORING 1 DEV DEV FS SCH ×4 (07:13→20:51)
--- NOTE | 2019-08-21 07:13 | NUR ---
BLOOD SUGAR 128. NO INSULIN COVERAGE THIS TIME.
--- NOTE | 2019-08-21 07:18 | NUR ---
REPORT GIVEN TO AMADEO HARPER. TRANSFER OF CARE THIS TIME.
[2019-08-21 07:19] LABS: ALBUMIN 2.4 g/dL (3.4-5.0); ANION GAP 10.8 (8-16); CARBON DIOXIDE 28.6 mmol/L (21-32); CREATININE 0.7 mg/dL (0.6-1.3); PHOSPHORUS 4.1 mg/dL (2.5-4.9); POTASSIUM 3.4 mmol/L (3.5-5.1); TOTAL BILIRUBIN 0.5 mg/dL (0.0-1.0)
--- NOTE | 2019-08-21 07:19 | NUR ---
RECEIVED BEDSIDE REPORT FROM COMMUNICATION LECTURER NURSE TERENCE RN, PT AWAKE, ALERT, ABLE TO LET NEEDS KNOWN, ON BIPAP 24/01, FIO2 100%, NO SOB NOTED, SATURATING AT 90%, IV TO L AC 18G, PATENT INTACT, INFUSING NS @ 80ML/HR, INFUSING WELL, AND R AC 20G PATENT INTACT, SL, VS STABLE BP 121/64, HR 98, RR 21, INITIAL ASSESSMENT DONE, ALL SAFETY PRECAUTION MET, CALL LIGHT WITHIN REACH, WILL CONTINUE TO MONITOR.
--- NOTE | 2019-08-21 08:00 | NUR ---
AMADEO/RN AT BEDSIDE TO ASSIST PATIENT WITH BED DE LA O AND MORNING BREAKFAST TRAY RCPTO ATTEMPT HHN THERAPY, BIPAP AND PATIENT ASSESSMENT AT A LATER TIME
--- NOTE | 2019-08-21 08:10 | NUR ---
ASSIST PT WITH BREAKFAST, PT ATE 75% OF BREAKFAST, AND HALF OF A BANANA, TOLERATED WELL, NO DISTRESS NOTED, WILL CONTINUE TO MONITOR.
[2019-08-21] MEDS: VITAMIN D 400 IU TAB PO SCH (08:24)
[2019-08-21] MEDS: ZINC SULF 220 MG CAP PO SCH ×2 (08:26→20:54)
[2019-08-21] MEDS: ASCORBIC ACID 500 MG TAB PO SCH (08:26)
[2019-08-21] MEDS: guaiFENesin 600 MG TABER PO SCH ×2 (08:27→20:53)
[2019-08-21] MEDS: ENOXAPARIN 80 MG/0.8 ML SYR SUBQ SCH (08:47)
[2019-08-21] MEDS: NACL 0.9% 1,000 ML IV SCH ×2 (08:54→20:30)
[2019-08-21] MEDS ORDERED: POTASSIUM CHLORIDE 10 MEQ TABER PO SCH (10:00)
[2019-08-21] MEDS: INSULIN LISPRO SLIDING SCALE 100 UNITS/ML VIAL SUBQ PRN ×3 (11:45→20:52)
--- NOTE | 2019-08-21 12:43 | NUR ---
ASSIST PT EATING LUNCH, PT ATE 75% OF LUNCH, TOLERATED WELL, NO DISTRESS NOTED, CALL LIGHT WITHIN REACH, WILL CONTINUE TO MONITOR.
[2019-08-21] MEDS: ACETYLCYSTEINE 10% (100 MG/ML) 100 MG/ML VIAL INH SCH ×2 (14:55→19:00)
[2019-08-21] MEDS: ALBUTEROL SULFATE/IPRATROPIU 3 ML SOL IH SCH ×2 (14:55→19:00)
--- NOTE | 2019-08-21 17:53 | NUR ---
PT ATE DINNER, TOLERATED WELL, AT 75% OF HER FOOD, CALL LIGHT WITHIN REACH, WILL CONTINUE TO MONITOR.
--- NOTE | 2019-08-21 20:14 | NUR ---
ENDORSED PT TO TMR TEACHER NURSE, PT RESTING, NO DISTRESS NOTED, CALL LIGHT WITHIN REACH.
--- NOTE | 2019-08-21 20:30 | NUR ---
REPORT RECEIVED FROM DAY SHIFT RN. PT IS ALERT AND ORIENTED. PT ABLE TO MAKE NEEDS KNOWN TO STAFF. PT REMAINS ON BIPAP. SATURATION ON HIGH 80'S TO LOW 90'S. PERIPHERAL ACCESS ON RIGHT AC G18 AND LEFT AC G20 INFUSING NORMAL SALINE @ 80MLS/HR. SKIN WARM, DRY AND INTACT. ORAL MUCOSA PINK AND MOIST. TAKES MEDICATIONS WHOLE WITHOUT DIFFICULTY. BED IN LOWEST POSITION, SIDE RAILS UP. ALL SAFETY MEASURES OBSERVED. DROPLET PRECAUTION MAINTAINED. WILL CONTINUE TO MONITOR.
[2019-08-21] MEDS ORDERED: PIPERACILLIN/TAZOBACTAM 3.375 GM VIAL IV ONE (21:25)
[2019-08-21] MEDS: PIPERACILLIN/TAZOBACTAM 3.375 GM in DEXTROSE 5% 50 ML IV SCH (21:36)
[2019-08-22] VITALS (16 sets, daily range): BP systolic 77–162; BP diastolic 49–117
--- NOTE | 2019-08-22 | NUR ---
PT HAD A BOWEL MOVEMENT. PT ABLE TO REPOSITION HERSELF. NO DISTRESS OBSERVED AT THIS TIME. WILL CONTINUE TO MONITOR.
--- NOTE | 2019-08-22 02:30 | NUR ---
PT ABLE TO MAKE HER NEEDS KNOWN. DENIES PAIN. NO CONCERNS AND COMPLAINTS MADE. WILL CONTINUE TO MONITOR.
[2019-08-22] MEDS ORDERED: PIPERACILLIN/TAZOBACTAM 3.375 GM VIAL IV ONE (03:17)
--- NOTE | 2019-08-22 04:00 | NUR ---
MORNING ROUTINE PROVIDED. NO DISTRESS NOTED. CALL LIGHT AND HYDRATION WITHIN REACH. WILL CONTINUE TO MONITOR.
[2019-08-22] MEDS: PIPERACILLIN/TAZOBACTAM 3.375 GM in DEXTROSE 5% 50 ML IV SCH ×3 (04:12→21:11)
[2019-08-22 06:25] LABS: BASOPHILS # (AUTO) 0.1 K/uL (0.00-0.22); BASOPHILS % (AUTO) 0.5 % (0.0-2.0); EOSINOPHILS # (AUTO) 0.1 K/uL (0-0.4); EOSINOPHILS % (AUTO) 0.4 % (0.0-4.0); HEMATOCRIT 44.1 % (36-48); HEMOGLOBIN 14.5 g/dL (12.0-16.0); LYMPHOCYTES # (AUTO) 0.6 K/uL (2.5-16.5); LYMPHOCYTES % (AUTO) 3.8 % (20.5-51.1); MEAN CORPUSCULAR HEMOGLOBIN 29 pg (27-31); MEAN CORPUSCULAR HGB CONC 33 g/dL (33-37); MEAN CORPUSCULAR VOLUME 88.3 fL (80-94); MONOCYTES # (AUTO) 0.5 K/uL (0.8-1.0); MONOCYTES % (AUTO) 3.1 % (1.7-9.3); NEUTROPHILS % (AUTO) 92.2 % (42.2-75.2); PLATELET COUNT (AUTO) 467 K/uL (140-450); RED CELL DISTRIBUTION WIDTH 13.5 % (11.6-13.7); WHITE BLOOD COUNT (AUTO) 16.3 K/uL (4.8-10.8)
[2019-08-22] MEDS: BLOOD GLUCOSE MONITORING 1 DEV DEV FS SCH ×4 (06:28→21:10)
[2019-08-22] MEDS: NACL 0.9% 1,000 ML IV SCH ×2 (06:28→19:40)
--- NOTE | 2019-08-22 06:30 | NUR ---
LATEST BS: 149. NO INSULIN COVERAGE NEEDED. PT RESTING IN BED AT THIS TIME.
[2019-08-22 06:50] LABS: ALBUMIN 2.7 g/dL (3.4-5.0); CARBON DIOXIDE 29.8 mmol/L (21-32); CREATININE 0.7 mg/dL (0.6-1.3); MAGNESIUM 2.2 mg/dL (1.8-2.4); PHOSPHORUS 4.5 mg/dL (2.5-4.9); POTASSIUM 3.8 mmol/L (3.5-5.1); TOTAL BILIRUBIN 0.6 mg/dL (0.0-1.0)
--- NOTE | 2019-08-22 07:00 | NUR ---
ENDORSED PT TO DAYSHIFT RN FOR CONTINUITY OF CARE.
--- NOTE | 2019-08-22 07:15 | NUR ---
RECEIVED REPORT FROM NIGHT NURSE. PT IN BED RESTING, AAOX4, NO DISTRESS NOTED, RESPIRATIONS EVEN AND UNLABORED ON BIPAP 100%. IV SITES PATENT INTACT AND ASYMPTOMATIC IN R AC 18G AND L AC 20G INFUSING PER ORDER. DROPLET PRECAUTIONS IN PLACE FOR COVID 19. PT CONTINENT, ABLE TO USE BED DE LA O. MECHANICAL SOFT DIET IN PLACE. SINUS TACHY ON MONITOR. BED IN LOW POSITION, SAFETY MEASURES IN PLACE. CALL LIGHT WITHIN REACH.
--- NOTE | 2019-08-22 07:54 | NUR ---
RECEIVED PT ON BIPAP PT IS AWAKE AND ALERT BUT IS TACHYPNEIC AT THIS TIME. BIPAP SETTINGS 12/6, R14, 100%. PT TOLERATING BIPAP WELL. BIPAP IS PLUGGED INTO A RED OUTLET WITH ALARMS ON AND FUNCTIONING. WILL CONTINUE TO MONITOR.
[2019-08-22] MEDS: ALBUTEROL SULFATE/IPRATROPIU 3 ML SOL IH SCH ×3 (07:55→19:49)
[2019-08-22] MEDS: ACETYLCYSTEINE 10% (100 MG/ML) 100 MG/ML VIAL INH SCH ×2 (07:55→19:49)
--- NOTE | 2019-08-22 08:29 | NUR ---
MEDICATIONS ADMINISTERED PER ORDER, PT TOLERATED WELL. NO DISTRESS NOTED. PT EDUCATED ON THE IMPORTANCE OF BREATHING TECHNIQUES AND RELAXATION. PT SEEN BY DR DALTON, INFORMED HIM OF PTS ELEVATED HR 130-140. NO ORDERS RECEIVED. ASSISTED PT IN EATING BREAKFAST. SAFETY MEASURES IN PLACE. BED IN LOW POSITION. WILL CONTINUE TO MONITOR.
[2019-08-22] MEDS: LACTOBACILLUS RHAMNOSUS GG 1 EACH CAP PO SCH (09:47)
[2019-08-22] MEDS: VITAMIN D 400 IU TAB PO SCH (09:47)
[2019-08-22] MEDS: guaiFENesin 600 MG TABER PO SCH ×2 (09:47→21:11)
[2019-08-22] MEDS: ASCORBIC ACID 500 MG TAB PO SCH (09:47)
[2019-08-22] MEDS: ZINC SULF 220 MG CAP PO SCH ×2 (09:48→21:11)
[2019-08-22] MEDS: ENOXAPARIN 80 MG/0.8 ML SYR SUBQ SCH (09:48)
--- NOTE | 2019-08-22 10:18 | NUR ---
ASSISTED PT WITH BED DE LA O. NO RESPIRATORY DISTRESS NOTED. PT DENIES FEELING SOB. SAFETY MEASURES IN PLACE. WILL CONTINUE TO MONITOR CLOSELY.
--- NOTE | 2019-08-22 11:50 | NUR ---
PT REMAINS ON BIPAP AT THIS TIME. PT NOT IN ANY DISTRESS ASLEEP. WILL CONTINUE TO MONITOR.
--- NOTE | 2019-08-22 12:23 | NUR ---
PT ASSISTED WITH EATING HER LUNCH. PT O2 SAT DROPPED TO 80% OFF BIPAP, IMPROVEMENT FROM BREAKFAST WHERE SATURATION WOULD DROP TO 50%. PT DENIES SOB WHILE EATING. DENIES ANY OTHER DISTRESS. WILL CONTINUE TO MONITOR.
[2019-08-22] MEDS: INSULIN LISPRO SLIDING SCALE 100 UNITS/ML VIAL SUBQ PRN ×3 (14:09→21:11)
--- NOTE | 2019-08-22 14:11 | NUR ---
SPOKE TO PTS AIXA, HE REQUESTED TO BRING IN GUAVA TEA FROM LEAVES IN HIS YARD. EXPLAINED TO PT AND THE POSSIBLE RISKS ASSOCIATED AND THEY VERBALIZED UNDERSTANDING THAT THERE MAY BE UNFORSEEABLE RISKS AND/OR BENEFITS, INCLUDING BUT NOT LIMITED TO WORSENING OF SYMPTOMS OR .
--- NOTE | 2019-08-22 16:12 | NUR ---
BLOOD SUGAR 309, 8 UNITS OF HUMALOG GIVEN. BIPAP FIO2 LOWERED FROM 95% TO 70% IN INTERVALS OF 5% EVERY 5 MINUTES. PT TOLERATING WELL, DENIES SOB, NO RESPIRATORY DISTRESS NOTED. RT FELIPA PARRA. WILL CONTINUE TO MONITOR.
--- NOTE | 2019-08-22 17:40 | NUR ---
FIO2 TITRATED TO 65%. PT REMAINS ON BIPAP AWAKE AND ALERT IN BED. BIPAP ALARMS ON AND FUNCTIONING. NURSE AWARE OF FIO2 CHANGE AND PT STATUS.
--- NOTE | 2019-08-22 18:21 | NUR ---
PT ASSISTED IN EATING DINNER, PUT ON OXIMIZER 15L DURING MEAL AND O2 SAT AROUND 76-78%. PT BACK ON BIPAP AT 70% AFTER MEAL O2SAT 94%. PT DENIES SOB OR DIFFICULTY BREATHING. NO DISTRESS NOTED. BED IN LOW POSITION. SAFETY MEASURES IN PLACE. WILL CONTINUE TO MONITOR.
--- NOTE | 2019-08-22 19:25 | NUR ---
REPORT GIVEN TO NIGHT NURSE FOR CONTINUITY OF CARE.
--- NOTE | 2019-08-22 19:45 | NUR ---
REPORT RECEIVED FROM DAY SHIFT RN. PT IS ALERT AND ORIENTED. PT ABLE TO MAKE NEEDS KNOWN TO STAFF. PT ABLE TO USE THE BED DE LA O, ABLE TO REPOSITION HERSELF IN BED. PT REMAINS ON BIPAP @ 70% FIO2. SATURATION ON HIGH 80'S TO LOW 90'S. PERIPHERAL ACCESS ON RIGHT AC G18 AND LEFT AC G20 INFUSING NORMAL SALINE @ 80MLS/HR. SKIN WARM, DRY AND INTACT. ORAL MUCOSA PINK AND MOIST. TAKES MEDICATIONS WHOLE WITHOUT DIFFICULTY. BED IN LOWEST POSITION, SIDE RAILS UP. ALL SAFETY MEASURES OBSERVED. DROPLET PRECAUTION MAINTAINED. WILL CONTINUE TO MONITOR.
--- NOTE | 2019-08-22 21:28 | NUR ---
PT HAD A BOWEL MOVEMENT. PT ABLE TO VOICE HER NEEDS. CALL LIGHT WITHIN REACH. WILL CONTINUE TO MONITOR PT.
--- NOTE | 2019-08-22 21:30 | NUR ---
PT SATTING ON THE LOW 80'S. RT CALLED AND MADE AWARE. WILL CONTINUE TO MONITOR.
[2019-08-23] VITALS (17 sets, daily range): BP systolic 91–146; BP diastolic 53–83
--- NOTE | 2019-08-23 | NUR ---
PT RESTING IN BED. NO CONCERNS AND COMPLAINTS MADE. WILL CONTINUE TO MONITOR.
--- NOTE | 2019-08-23 02:33 | NUR ---
PT REMAINS ON BIPAP. SATTING AT HIGH 80'S. NO CONCERNS AND COMPLAINTS MADE AT THIS TIME. WILL CONTINUE TO MONITOR.
[2019-08-23] MEDS: PIPERACILLIN/TAZOBACTAM 3.375 GM in DEXTROSE 5% 50 ML IV SCH ×3 (04:35→20:53)
[2019-08-23 05:48] LABS: BASOPHILS # (AUTO) 0.1 K/uL (0.00-0.22); BASOPHILS % (AUTO) 0.5 % (0.0-2.0); EOSINOPHILS % (AUTO) 0.2 % (0.0-4.0); HEMATOCRIT 45.1 % (36-48); HEMOGLOBIN 14.7 g/dL (12.0-16.0); LYMPHOCYTES # (AUTO) 0.8 K/uL (2.5-16.5); LYMPHOCYTES % (AUTO) 4.9 % (20.5-51.1); MEAN CORPUSCULAR HEMOGLOBIN 29 pg (27-31); MEAN CORPUSCULAR HGB CONC 33 g/dL (33-37); MEAN CORPUSCULAR VOLUME 88.2 fL (80-94); MONOCYTES # (AUTO) 0.6 K/uL (0.8-1.0); NEUTROPHILS # (AUTO) 14.4 K/uL (1.8-7.7); NEUTROPHILS % (AUTO) 90.4 % (42.2-75.2); PLATELET COUNT (AUTO) 496 K/uL (140-450); RED BLOOD CELL COUNT(AUTO) 5.11 MIL/uL (4.20-5.40); RED CELL DISTRIBUTION WIDTH 13.8 % (11.6-13.7); WHITE BLOOD COUNT (AUTO) 15.9 K/uL (4.8-10.8)
--- NOTE | 2019-08-23 05:50 | NUR ---
FIO2 100%. PT SATTING ON LOW 90'S. WILL CONTINUE TO MONITOR.
[2019-08-23] MEDS: BLOOD GLUCOSE MONITORING 1 DEV DEV FS SCH ×4 (05:55→21:16)
[2019-08-23] MEDS: INSULIN LISPRO SLIDING SCALE 100 UNITS/ML VIAL SUBQ PRN ×4 (05:56→21:17)
--- NOTE | 2019-08-23 06:00 | NUR ---
LATEST BS: 181. 2 UNITS HUMALOG GIVEN ORDERED. WILL CONTINUE TO MONITOR.
[2019-08-23] MEDS: ALBUTEROL SULFATE/IPRATROPIU 3 ML SOL IH SCH ×3 (06:44→18:32)
[2019-08-23] MEDS: ACETYLCYSTEINE 10% (100 MG/ML) 100 MG/ML VIAL INH SCH ×3 (06:44→18:41)
[2019-08-23 07:03] LABS: ALBUMIN 2.8 g/dL (3.4-5.0); ANION GAP 14.5 (8-16); CARBON DIOXIDE 29.2 mmol/L (21-32); CREATININE 0.7 mg/dL (0.6-1.3); MAGNESIUM 2.3 mg/dL (1.8-2.4); PHOSPHORUS 4.3 mg/dL (2.5-4.9); POTASSIUM 3.7 mmol/L (3.5-5.1); TOTAL BILIRUBIN 0.6 mg/dL (0.0-1.0)
--- NOTE | 2019-08-23 07:15 | NUR ---
ENDORSED PT TO DAY SHIFT RN FOR CONTINUITY OF CARE.
--- NOTE | 2019-08-23 07:57 | NUR ---
REPORT RECEIVED. PT IS ALERT AND ORIENTED X4. PT ABLE TO MAKE NEEDS KNOWN TO STAFF. PT ABLE TO USE THE BED DE LA O, ABLE TO REPOSITION HERSELF IN BED. PT REMAINS ON BIPAP @ 100% FIO2. SATURATION ON HIGH 80'S TO LOW 90'S. PERIPHERAL ACCESS ON RIGHT AC G18 AND LEFT AC G20. INFUSING NORMAL SALINE @ 80MLS/HR TO R AC. SKIN WARM, DRY AND INTACT. NO WOUNDS PRESENT. PT HAD 1 BM PREVIOUS SHIFT. BOWEL SOUNDS ACTIVE. ABDOMEN SOFT AND ROUND. PT ON CONSISTENT CARB DIET WITH GLUCERNA SUPPLEMENT. PT PRIMARILY MALDIVIAN SPEAKING. COVID AND SAFETY PRECAUTIONS IN PLACE.
[2019-08-23] MEDS: ASCORBIC ACID 500 MG TAB PO SCH (08:21)
[2019-08-23] MEDS: ZINC SULF 220 MG CAP PO SCH ×2 (08:22→20:53)
[2019-08-23] MEDS: LACTOBACILLUS RHAMNOSUS GG 1 EACH CAP PO SCH (08:22)
[2019-08-23] MEDS: guaiFENesin 600 MG TABER PO SCH ×2 (08:23→20:53)
[2019-08-23] MEDS: VITAMIN D 400 IU TAB PO SCH (08:24)
[2019-08-23] MEDS: ENOXAPARIN 80 MG/0.8 ML SYR SUBQ SCH (08:25)
[2019-08-23] MEDS: NACL 0.9% 1,000 ML IV SCH ×2 (09:00→20:52)
--- NOTE | 2019-08-23 09:09 | NUR ---
MORNING MEDICATIONS ADMINISTERED AND ASSISTED PT WITH EATING. 100% BREAKFAST CONSUMED.
--- NOTE | 2019-08-23 09:41 | NUR ---
08/23/19 RD FOLLOW UP COMPLETED PLEASE REFER TO NUTRITION PROGRESS NOTE UNDER CARE ACTIVITY FOR ESTIMATED NUTRITION NEEDS. RD RECOMMENDATIONS: 1. CONTINUE PUREE CCHO 60GM DIET TOLERATED 2. RECOMMEND CONTINUE GLUCERNA TID 3. RD TO FOLLOW-UP 3-5 DAYS, MODERATE RISK CELIA WEBER MBA, RD
--- NOTE | 2019-08-23 13:38 | NUR ---
PT ASSISTED WITH LUNCH. ASSISTED ONTO BEDPAN. LINENS CHANGED
--- NOTE | 2019-08-23 17:45 | NUR ---
SPOKE WITH PTS IN REGARDS TO TEA, STATES TEA IS WATER MIXED WITH GUAVA LEAVES, NO ADDED SUGAR.
--- NOTE | 2019-08-23 19:12 | NUR ---
CALLED TO BEDSIDE PT SPO2 69% ON 01/14 f 14 SETTINGS WERE INCREASED IN ATTEMPTS TO MAINTAIN O2 PT CURRENTLY ON 24/01 VOLUMES ADEQUATE 800 DURING VENT CHECK PT CURRENT SPO2 RISING SLOWLY 73-75% DR MATIAS WAS OINFORMED AND APPROVED TITRATION NO OTHER CHANGES AT THIS TIME Tx WAS GIVEN DUO + MUCO WILL CONTINUE TO MONITOR
--- NOTE | 2019-08-23 19:12 | NUR ---
REPORT RECEIVED FROM AM NURSE AT BEDSIDE. PT IN STABLE CONDITION. AAOX4. NO COMPLAINTS OF PAIN. NO SOB ON BIPAP@100% BUT O2 SATURATION@72%. AFEBRILE. PT IS ON BEDREST. PT USES BEDPAN. PT ON SOFT PUREE DIET. PT ON DROPLET PRECAUTION FOR COVID+. IV SITE L AC 20G SL PATENT AND INTACT. R AC 18G RUNNING NS@80ML/HR PATENT AND INTACT. SKIN WARM, DRY, AND INTACT WITH NO OPEN WOUNDS. BED LOCKED IN LOW POSITION. CALL ALVAREZ WITHIN REACH. SAFETY PRECAUTION IN PLACE. ALL NEEDS MET AT THIS TIME.
--- NOTE | 2019-08-23 20:53 | NUR ---
RODOLFON HUNG AND RUNNING. MUCINEX AND ZINC GIVEN PO. BS 247. 4 UNITS OF HUMALOG GIVEN. PT TOLERATING WELL.
--- NOTE | 2019-08-23 21:30 | NUR ---
PT CLEANED. LINENS CHANGED.
--- NOTE | 2019-08-23 21:42 | NUR ---
PT SPO2 NOW 89% IN NO APPARENT DISTRESS PT PLAYING ON PHONE Addendum: 08/23/19 at 2145 by Cornell Irwin Jr RT TOLERATING WELL WILL CONTINUE TO MONITOR DR NEFF STATED WE WILL OBTAIN ABG IN AM UNLESS PT IS IN DISTRESS
--- NOTE | 2019-08-23 23:45 | NUR ---
PT SLEEPING COMFORTABLY BUT AROUSABLE. NO S/S OF DISTRESS NOTED.
[2019-08-24] VITALS (17 sets, daily range): BP systolic 102–143; BP diastolic 27–82
--- NOTE | 2019-08-24 01:30 | NUR ---
PT SLEEPING COMFORTABLY BUT AROUSABLE. NO S/S OF DISTRESS NOTED. NO COMPLAINTS OF PAIN. NO SOB ON BIPAP. AFEBRILE. WILL CONTINUE TO MONITOR.
--- NOTE | 2019-08-24 03:35 | NUR ---
PT SLEEPING COMFORTABLY BUT AROUSABLE. NO S/S OF DISTRESS NOTED. RESPIRATIONS EVEN, UNLABORED, AND WNL. WILL CONTINUE TO MONITOR.
[2019-08-24] MEDS: PIPERACILLIN/TAZOBACTAM 3.375 GM in DEXTROSE 5% 50 ML IV SCH ×3 (05:02→22:20)
--- NOTE | 2019-08-24 05:02 | NUR ---
MARIA FERNANDA HUNG AND RUNNING. PT TOLERATING WELL.
[2019-08-24 06:22] LABS: BASOPHILS % (AUTO) 0.3 % (0.0-2.0); EOSINOPHILS # (AUTO) 0.1 K/uL (0-0.4); EOSINOPHILS % (AUTO) 0.6 % (0.0-4.0); HEMATOCRIT 44.5 % (36-48); HEMOGLOBIN 14.5 g/dL (12.0-16.0); LYMPHOCYTES # (AUTO) 0.9 K/uL (2.5-16.5); LYMPHOCYTES % (AUTO) 6.4 % (20.5-51.1); MEAN CORPUSCULAR HEMOGLOBIN 29 pg (27-31); MEAN CORPUSCULAR HGB CONC 33 g/dL (33-37); MEAN CORPUSCULAR VOLUME 88.7 fL (80-94); MONOCYTES # (AUTO) 0.7 K/uL (0.8-1.0); MONOCYTES % (AUTO) 4.8 % (1.7-9.3); NEUTROPHILS # (AUTO) 12.6 K/uL (1.8-7.7); NEUTROPHILS % (AUTO) 87.9 % (42.2-75.2); PLATELET COUNT (AUTO) 500 K/uL (140-450); RED BLOOD CELL COUNT(AUTO) 5.02 MIL/uL (4.20-5.40); WHITE BLOOD COUNT (AUTO) 14.4 K/uL (4.8-10.8)
--- NOTE | 2019-08-24 06:45 | NUR ---
BS 131. NO INSULIN COVERAGE NEEDED.
[2019-08-24] MEDS: BLOOD GLUCOSE MONITORING 1 DEV DEV FS SCH ×4 (07:00→20:43)
[2019-08-24 07:12] LABS: ALBUMIN 2.7 g/dL (3.4-5.0); CREATININE 0.8 mg/dL (0.6-1.3); MAGNESIUM 2.3 mg/dL (1.8-2.4); PHOSPHORUS 4.3 mg/dL (2.5-4.9); POTASSIUM 3.9 mmol/L (3.5-5.1); TOTAL BILIRUBIN 0.6 mg/dL (0.0-1.0)
--- NOTE | 2019-08-24 07:18 | NUR ---
REPORT GIVEN TO AM NURSE AT BEDSIDE. PT IN STABLE CONDITION.
--- NOTE | 2019-08-24 08:00 | NUR ---
BEDSIDE REPORT RECEIVED FROM UMBRELLA SUPERVISOR NURSE AT 0730, PT LYING IN BED SEMI HINDS, RESTING QUIETLY, AROUSES EASILY, RESP EVEN UNLABORED ON BIPAP AT 100% FIO2, DENIES PAIN OR DISCOMFORT, IVF INFUSING TO R AC PIV, SITE WNL, MOVES ALL EXT, ABD SOFT NON DISTENDED, CALL ALVAREZ WITHIN REACH, SIDE RAILS UP FOR SAFETY , BED LOCKED IN LOW POSITION, POC REVIEWED, ALL NEEDS ARE MET AT THIS TIME.
[2019-08-24] MEDS: ACETYLCYSTEINE 10% (100 MG/ML) 100 MG/ML VIAL INH SCH ×3 (08:25→19:00)
[2019-08-24] MEDS: ALBUTEROL SULFATE/IPRATROPIU 3 ML SOL IH SCH ×3 (08:25→19:00)
--- NOTE | 2019-08-24 08:25 | NUR ---
DID NOT ADMIN MUCOMYST DUE TO C SECTION.
--- NOTE | 2019-08-24 08:25 | NUR ---
PT REMAINS ON BIPAP, TOLERATING WELL. TX GIVEN INLINE. NO DISTRESS NOTED AT THIS TIME, WILL CONTINUE TO MONITOR.
[2019-08-24] MEDS: LACTOBACILLUS RHAMNOSUS GG 1 EACH CAP PO SCH (08:35)
[2019-08-24] MEDS: ASCORBIC ACID 500 MG TAB PO SCH (08:35)
[2019-08-24] MEDS: ZINC SULF 220 MG CAP PO SCH ×2 (08:35→21:00)
[2019-08-24] MEDS: VITAMIN D 400 IU TAB PO SCH (08:36)
[2019-08-24] MEDS: ENOXAPARIN 80 MG/0.8 ML SYR SUBQ SCH (08:37)
[2019-08-24] MEDS: guaiFENesin 600 MG TABER PO SCH ×2 (08:39→21:00)
[2019-08-24] MEDS: NACL 0.9% 1,000 ML IV SCH (09:10)
--- NOTE | 2019-08-24 11:25 | NUR ---
DR NEWBY AT BEDSIDE
--- NOTE | 2019-08-24 11:50 | NUR ---
DR SOLER AT BEDSIDE TO DISCUSS CONDITION AND PLAN WITH PT.
[2019-08-24] MEDS ORDERED: guaiFENesin DM 200/20 MG-10 ML 10 ML UDC PO PRN (12:00)
--- NOTE | 2019-08-24 12:09 | NUR ---
4 UNITS INSULIN GIVEN PER SLIDING SCALE FOR BS 208, PT SAT UP STRAIGHT IN BED, CHANGED TO 15L OXIMIZER FOR LUNCH, SARAH 50% OF TRAY AND 75% OF GLUCERNA, O2 SAT NOTED TO BE LOW 75% FOR BRIEF PERIODS, PLACED BACK ON BIPAP, RT DANYA AT BEDSIDE. PT ALSO GOT ON BED DE LA O, PT ABLE TO LIFT UP BUTTOCKS OFF THE BED ON HER OWN, VOIDED APPROX 400ML URNIE.
--- NOTE | 2019-08-24 14:30 | NUR ---
VIA [employer] TELEHEALTH DIRECTOR PHONE, PER DR NEWBY PT ENCOURAGED TO SIT UP ON BEDSIDE COMMODE AND SIT UP AT SIDE OF BED OR CHAIR, PT EXPRESSED UNDERSTANDING, PT DENIES NEED TO USE COMMODE NOW, PT ASSISTED TO DRINK TEA BROUGHT IN FROM HOME. SARAH WELL, O2SAT 92% BACK ON BIPAP
--- NOTE | 2019-08-24 16:05 | NUR ---
PT ASSISTED UP TO BEDSIDE COMMODE, STABLE ON HER FEET, VOIDED AND BMX1, BED BATH GIVEN, ASSISTED WITH PERICARE, BED LINEN AND GOWN CHANGED, PT RETURNED BACK TO BED. O2 SAT 90-94% WITH BIPAP 100% FIO2 AT THIS TIME.
[2019-08-24] MEDS: INSULIN LISPRO SLIDING SCALE 100 UNITS/ML VIAL SUBQ PRN ×2 (16:52→20:42)
--- NOTE | 2019-08-24 16:58 | NUR ---
PT REMAINS ON DOCUMENTED SETTINGS, STILL TOLERATING BIPAP MAINTAINING GOOD SATURATION. NO DISTRESS NOTED AT THIS TIME, BIPAP PLUGGED INTO RED OUTLET, ALARMS ON AND FUNCTIONING.
--- NOTE | 2019-08-24 18:20 | NUR ---
PT SAT UP AT SIDE OF BED WITH MINIMAL ASSIST, CHANGED TO OXIMIZER AT >15L FOR DINNER, SLIGHT SOB WITH EXERTION, DESAT TO 75% WHILE EATING, PLACED BACK ON BIPAP AFTER DINNER RECOVERED BACK TO 90%
--- NOTE | 2019-08-24 20:00 | NUR ---
RECEIVED REPORT FROM DAYSHIFT NURSE. PT AWAKE AND DANGLING FEET ON SIDE OF BED. NO DISTRESS NOTED, HEART RATE ELEVATED IN 140's, TACHYPNEIC, RR- 35. ON BIPAP, IPAP 16 EPAP 12, RATE 14, FI02 100%. LUNG SOUNDS RHONCHI AND DIMINISHED AT BASES. INTERMITTENT COUGH NOTED. PT ABLE TO CLEAR AIRWAY. O2 SAT 85%. S1S2, SINUS TACH ON MONITOR. BP WNL. SKIN WARM AND DRY, AFEBRILE, INTACT. RAC 18G, FLUSHED AND PATENT, NO SYMPTOMS, INFUSING IVF NS @ 80ML/HR. LAC 20G, FLUSHED AND PATENT, SALINE LOCKED. ABDOMEN LARGE SOFT AND NONTENDER, ACTIVE BOWEL SOUNDS IN ALL 4 QUADRANTS. PT CONTINENT, USES BEDSIDE COMMODE. DENIES PAIN. ORIENTED PATIENT TO TREATMENT. CALL LIGHT WITHIN REACH, BED LOCKED AND IN LOWEST POSITION. WILL CONTINUE TO MONITOR.
--- NOTE | 2019-08-24 20:48 | NUR ---
PT WAS FOUND EATING W/ 15L OXY SITTING UP IN BED PT SPO2 IN 70S AND PLACED BACK ON BIPAP PT WAS GIVEN Tx DUO + MUCO HR PRE Tx 143 AND POST HR 148 AT 2024 HR IS 126 SPO2 IS NOW 90-93 PT DENIES ANY DISTRESS AT THIS TIME WILL CONTINUE TO MONITOR
[2019-08-24 20:58] LABS: ANION GAP 18.6 (8-16); CARBON DIOXIDE 24.3 mmol/L (21-32)
--- NOTE | 2019-08-24 21:50 | NUR ---
PT SITTING UP AT SIDE OF BED. EXPLAINED SCHEDULED MEDICATIONS-INDICATIONS AND SIDE EFFECTS, VERBALIZES UNDERSTANDING. ASSISTED PATIENT WITH BRIEFLY REMOVING BIPAP MASK TO TAKE PO MEDS. READJUSTED MASK FOR COMFORT. SATURATIONS BACK TO 90%. ASSISTED PT BACK IN BED. SIDERAILS UP, HOB HIGH FOWLERS. ALL VALUABLES WITHIN REACH WITH CALL LIGHT. BEDSIDE COMMODE EMPTIED AND CLEANED. ALL NEEDS MET. WILL CONTINUE TO MONITOR.
--- NOTE | 2019-08-24 23:20 | NUR ---
ASSISTED PT TO BEDSIDE COMMODE. VOIDED. NO INCIDENTS OCCURRED. BACK IN BED, WATCHING TV. HR ST ON MONITOR, 104 BPM. ALL OTHER VITALS WITHIN RANGE, SATURATIONS 97%. SAFETY MEASURES IN PLACE.
[2019-08-25] VITALS (11 sets, daily range): BP systolic 97–144; BP diastolic 39–90
[2019-08-25] MEDS: NACL 0.9% 1,000 ML IV SCH ×3 (01:05→22:40)
--- NOTE | 2019-08-25 01:11 | NUR ---
RESTING WELL IN BED, DOZING OFF, HEAD IS DANGLING. REPOSITIONED PATIENT FOR COMFORT. BIPAP MACHINE ALARMING BUT SATURATIONS ARE 95%. NO DISTRESS NOTED. PT DENIES PAIN. SAFETY MEASURES IN PLACE. CONTINUE TO MONITOR.
--- NOTE | 2019-08-25 03:30 | NUR ---
ASSISTED PT TO BEDSIDE COMMODE. PT VOIDED. PROVIDED WITH TOILETRY SUPPLIES. PT ABLE TO GET UP AND USE COMMODE AND BACK IN BED WITHOUT ASSISTANCE, ONLY STANDBY. STILL HAS SMALL COUGH. NON PRODUCTIVE. BP AND HR STABLE.
[2019-08-25] MEDS: PIPERACILLIN/TAZOBACTAM 3.375 GM in DEXTROSE 5% 50 ML IV SCH ×3 (04:40→21:44)
--- NOTE | 2019-08-25 05:11 | NUR ---
ASSISTED PATIENT TO BEDSIDE COMMODE AGAIN. CLEANED BED WHILE PT USING TOILET. SKIN INTACT, NO SIGNS IF INJURY. ASSISTED PT WITH SPONGE BATH. BIPAP 100% FI02, RATE 16 IPAP EPAP 24/01. SATURATIONS GREATER THAN 93%. DENIES PAIN. CALL LIGHT WITHIN REACH.
[2019-08-25 06:25] LABS: BASOPHILS % (AUTO) 0.3 % (0.0-2.0); EOSINOPHILS # (AUTO) 0.2 K/uL (0-0.4); EOSINOPHILS % (AUTO) 1.1 % (0.0-4.0); HEMATOCRIT 41.3 % (36-48); HEMOGLOBIN 13.6 g/dL (12.0-16.0); LYMPHOCYTES % (AUTO) 7.4 % (20.5-51.1); MEAN CORPUSCULAR HEMOGLOBIN 29 pg (27-31); MEAN CORPUSCULAR HGB CONC 33 g/dL (33-37); MEAN CORPUSCULAR VOLUME 88.9 fL (80-94); MONOCYTES # (AUTO) 0.7 K/uL (0.8-1.0); MONOCYTES % (AUTO) 5.2 % (1.7-9.3); NEUTROPHILS # (AUTO) 11.9 K/uL (1.8-7.7); PLATELET COUNT (AUTO) 495 K/uL (140-450); RED BLOOD CELL COUNT(AUTO) 4.65 MIL/uL (4.20-5.40); RED CELL DISTRIBUTION WIDTH 13.7 % (11.6-13.7); WHITE BLOOD COUNT (AUTO) 13.8 K/uL (4.8-10.8)
--- NOTE | 2019-08-25 06:45 | NUR ---
RAC 18G STILL INTACT AND PATENT, INFUSING NS IVF @ 80ML/HR. CHANGED DRESSING AT LEFT AC 20G, STILL PATENT AND WITHOUT SYMPTOMS, SALINE LOCKED. COMMODE CLEANED AND REPLACED CHUCKS AND WIPES. SAFETY MEASURES IN PLACE, CALL LIGHT WITHIN REACH, BIPAP SEALED AROUND MOUTH AND ALL VITALS WITHIN RANGE. INFORMED PT WILL BE ENDORSED TO A.M NURSE. ALL NEEDS MET, NO DISTRESS NOTED.
[2019-08-25] MEDS: BLOOD GLUCOSE MONITORING 1 DEV DEV FS SCH ×4 (06:57→21:00)
--- NOTE | 2019-08-25 07:10 | NUR ---
SUGAR CHECK 105, NO COVERAGE NEEDED.
[2019-08-25 07:13] LABS: ALBUMIN 2.6 g/dL (3.4-5.0); ANION GAP 13.1 (8-16); CARBON DIOXIDE 30.8 mmol/L (21-32); CREATININE 0.8 mg/dL (0.6-1.3); MAGNESIUM 2.2 mg/dL (1.8-2.4); PHOSPHORUS 4.1 mg/dL (2.5-4.9); POTASSIUM 3.9 mmol/L (3.5-5.1); TOTAL BILIRUBIN 0.6 mg/dL (0.0-1.0)
[2019-08-25] MEDS: ALBUTEROL SULFATE/IPRATROPIU 3 ML SOL IH SCH ×3 (07:49→19:59)
[2019-08-25] MEDS: ACETYLCYSTEINE 10% (100 MG/ML) 100 MG/ML VIAL INH SCH ×3 (07:49→19:59)
--- NOTE | 2019-08-25 07:52 | NUR ---
BEDSIDE REPORT RECEIVED FROM DIE TURNER NURSE AT 0730, PT LYING IN BED SEMI HINDS, RESTING QUIETLY, AROUSES EASILY, RESP EVEN UNLABORED ON BIPAP AT 100% FIO2, DENIES PAIN OR DISCOMFORT, IVF INFUSING TO R AC PIV, SITE WNL, MOVES ALL EXT, ABD SOFT NON DISTENDED, CALL ALVAREZ WITHIN REACH, SIDE RAILS UP FOR SAFETY , BED LOCKED IN LOW POSITION, POC REVIEWED, ALL NEEDS ARE MET AT THIS TIME.
[2019-08-25] MEDS: LACTOBACILLUS RHAMNOSUS GG 1 EACH CAP PO SCH (09:04)
[2019-08-25] MEDS: ZINC SULF 220 MG CAP PO SCH ×2 (09:04→21:44)
[2019-08-25] MEDS: ASCORBIC ACID 500 MG TAB PO SCH (09:04)
[2019-08-25] MEDS: VITAMIN D 400 IU TAB PO SCH (09:04)
[2019-08-25] MEDS: guaiFENesin 600 MG TABER PO SCH ×2 (09:05→21:44)
[2019-08-25] MEDS: ENOXAPARIN 80 MG/0.8 ML SYR SUBQ SCH (09:05)
--- NOTE | 2019-08-25 09:32 | NUR ---
PT SAT UP AT SIDE OF BED WITH NO ASSIST, SOB WITH EXERTION, CHANGED TO NON REBREATHER MASK FOR BREAKFAST, SWALLOWS WELL WITHOUT COUGHING, PLACED BACK ON BIPAP IMMEDIATELY AFTER.
--- NOTE | 2019-08-25 12:20 | NUR ---
4 UNITS INSULIN GIVEN FOR BS 214, PT SITTING UP AT BEDSDIE FOR LUNCH. PLACED ON NON REBREATHER WHILE EATING.
[2019-08-25] MEDS: INSULIN LISPRO SLIDING SCALE 100 UNITS/ML VIAL SUBQ PRN ×3 (13:42→22:21)
--- NOTE | 2019-08-25 16:48 | NUR ---
PT UP TO BEDSIDE COMMODE WITH MINIMAL ASSIST, VOIDS WITHOUT PROBLEM, PT REMAINS ON BIPAP SLIGHTLY SHORT OF BREATH WITH EXERTION.
--- NOTE | 2019-08-25 18:02 | NUR ---
4 UNITS INSULIN GIVEN FOR 220, PT SAT UP FOR DINNER, TRANSFERS TO BEDSIDE COMMODE WITHOUT PROBLEM, DESAT DOWN TO 75% WHILE EATING FOR SHORT PERIODS, PLACED BACK ON BIPAP 100% FIO2, O2SAT RECOVERED TO 90%. , PT DENIES PAIN OR DISCOMFORT, POSITIONED FOR COMFORT, CALL ALVAREZ WITHIN REACH, NO IMMEDIATE NEEDS AT THIS ITME, WILL COTNIUE TO MOTNOR.
--- NOTE | 2019-08-25 19:30 | NUR ---
RECEIVED REPORT FROM RNKEN. PT IN BED RESTING, A/O X4. AMHARIC SPEAKING ONLY. DENIES PAIN UPON QUESTIONING. PUPILS 3MM, PERRL. ON BIPAP WITH FI02 @ 100%. SPO2 94%. LUNGS DIMINISHED THROUGHOUT. +S1, S2 UPON AUSCULTATION. BOWEL SOUNDS ACTIVE X4. NO ABD DISTENTION OR TENDERNESS NOTED. 20G SALINE-LOCKED IV NOTED TO RT AC INFUSING NS @ 80 ML/HR. 18G LT AC, SALINE-LOCKED, IV PATENT. PT ABLE TO USE THE BEDSIDE COMMODE WITH ASSISTANCE. PEDAL PULSES PALPABLE. SKIN WARM, DRY, AND INTACT. SAFETY PRECAUTIONS IN PLACE WITH BED LOW AND LOCKED. CALL LIGHT IN EASY REACH. WILL CONT TO MONITOR FOR CHANGES.
--- NOTE | 2019-08-25 21:30 | NUR ---
GVP=[phone]. INSULIN PER S/S ADMINISTERED ORDERED AT THIS TIME. EDUCATED PT ON S/S OF HYPOGLYCEMIA. WILL CONT TO MONITOR.
[2019-08-26] VITALS (7 sets, daily range): BP systolic 92–127; BP diastolic 67–80
--- NOTE | 2019-08-26 | NUR ---
ASSISTED PT TO BEDSIDE COMMODE. DENIES PAIN UPON QUESTIONING. CALL LIGHT LEFT WITHIN REACH. WILL CONT TO MONITOR FOR CHANGES.
--- NOTE | 2019-08-26 02:00 | NUR ---
ASSISTED PT TO REPOSITION. CONTINUES ON BIPAP WITH FIO2 @ 100%. BED LOW AND LOCKED WITH CALL LIGHT IN EASY REACH. WILL CONT TO MONITOR FOR CHANGES IN CONDITION.
--- NOTE | 2019-08-26 04:35 | NUR ---
RECEIVED BEDSIDE REPORT FROM MAJO HARPER. PATIENT IS AWAKE, RESPIRATION EVEN UNLABORED ON BIPAP. SKIN IS WARM AND DRY. IV PATENT AND INTACT. PLAN OF CARE WAS DISCUSSED. ALL SAFETY MEASURES IN PLACE. BED IS AT LOW POSITION. CALL LIGHT WITHIN REACH. WILL CONTINUE TO MONITOR.
--- NOTE | 2019-08-26 04:35 | NUR ---
PT TRANSFERRED TO [facility] ROOM, 131. VSS. REPORT GIVEN TO LEROY ARREOLA FOR CONTINUITY OF CARE.
[2019-08-26] MEDS: PIPERACILLIN/TAZOBACTAM 3.375 GM in DEXTROSE 5% 50 ML IV SCH (05:06)
[2019-08-26 05:59] LABS: BASOPHILS # (AUTO) 0.1 K/uL (0.00-0.22); BASOPHILS % (AUTO) 0.7 % (0.0-2.0); EOSINOPHILS # (AUTO) 0.3 K/uL (0-0.4); HEMATOCRIT 41.5 % (36-48); HEMOGLOBIN 13.7 g/dL (12.0-16.0); LYMPHOCYTES # (AUTO) 1.3 K/uL (2.5-16.5); LYMPHOCYTES % (AUTO) 9.3 % (20.5-51.1); MEAN CORPUSCULAR HEMOGLOBIN 29 pg (27-31); MEAN CORPUSCULAR HGB CONC 33 g/dL (33-37); MEAN CORPUSCULAR VOLUME 88.9 fL (80-94); MONOCYTES # (AUTO) 0.7 K/uL (0.8-1.0); MONOCYTES % (AUTO) 5.3 % (1.7-9.3); NEUTROPHILS # (AUTO) 11.5 K/uL (1.8-7.7); NEUTROPHILS % (AUTO) 82.7 % (42.2-75.2); PLATELET COUNT (AUTO) 551 K/uL (140-450); RED BLOOD CELL COUNT(AUTO) 4.67 MIL/uL (4.20-5.40); RED CELL DISTRIBUTION WIDTH 13.6 % (11.6-13.7); WHITE BLOOD COUNT (AUTO) 13.9 K/uL (4.8-10.8)
[2019-08-26] MEDS: BLOOD GLUCOSE MONITORING 1 DEV DEV FS SCH ×4 (06:35→23:00)
[2019-08-26 06:40] LABS: ANION GAP 17.2 (8-16); CARBON DIOXIDE 25.2 mmol/L (21-32); CREATININE 0.8 mg/dL (0.6-1.3); POTASSIUM 3.4 mmol/L (3.5-5.1)
--- NOTE | 2019-08-26 07:14 | NUR ---
ENDORSED PATIENT TO DAY SHIFT NURSE FOR CONTINUITY OF CARE. PATIENT IN STABLE CONDITION.
--- NOTE | 2019-08-26 07:15 | NUR ---
RECEIVED REPORT FROM NIGHT NURSE. PATIENT IN STABLE CONDITION. PATIENT IN BED ASLEEP, EASILY AROUSABLE BY NAME OR TOUCH. RESPIRATIONS EVEN AND UNLABORED. BIPAP IN PLACE. FIO2 100%. SKIN WARM AND DRY TO TOUCH. IV INTACT AND PATENT TO RIGHT AC AND LEFT AC. IVF NS @ 80ML/HR. BED IN LOW POSITION. SAFETY MEASURES IN PLACE. CALL LIGHT WITHIN REACH. NO S/S OF DISTRESS NOTED.
[2019-08-26] MEDS: ACETYLCYSTEINE 10% (100 MG/ML) 100 MG/ML VIAL INH SCH ×3 (07:18→20:15)
[2019-08-26] MEDS: ALBUTEROL SULFATE/IPRATROPIU 3 ML SOL IH SCH ×3 (07:18→20:15)
--- NOTE | 2019-08-26 07:18 | NUR ---
RECEIVED PT ON BIPAP. SETTINGS 16/12, R14 AND FIO2 100%. PT WAS ASLEEP BUT WHEN SPOKEN TO IS AWAKE AND ALERT.PROTECTA GEL IS PLACED UNDER MASK FOR SKIN PROTECTION. ALARMS ON AND FUNCTIONING. WILL CONTINUE TO MONITOR.
[2019-08-26 09:37] LABS: MAGNESIUM 2.2 mg/dL (1.8-2.4); PHOSPHORUS 4.1 mg/dL (2.5-4.9)
[2019-08-26] MEDS: ENOXAPARIN 80 MG/0.8 ML SYR SUBQ SCH (09:47)
[2019-08-26] MEDS: VITAMIN D 400 IU TAB PO SCH (09:48)
[2019-08-26] MEDS: guaiFENesin 600 MG TABER PO SCH ×2 (09:48→22:00)
[2019-08-26] MEDS: ASCORBIC ACID 500 MG TAB PO SCH (09:48)
[2019-08-26] MEDS: LACTOBACILLUS RHAMNOSUS GG 1 EACH CAP PO SCH (09:48)
[2019-08-26] MEDS: ZINC SULF 220 MG CAP PO SCH ×2 (09:48→22:00)
[2019-08-26] MEDS ORDERED: CRUSHER, PILL MC ONE (09:55)
--- NOTE | 2019-08-26 10:00 | NUR ---
PATIENT TOLERATED AM MEDICATIONS. PATIENT IS AWAKE, ALERT, AND ORIENTED X4. O2 SAT 91%. BIPAP IN PLACE.
[2019-08-26] MEDS: NACL 0.9% 1,000 ML IV SCH ×2 (11:10→22:30)
[2019-08-26] MEDS: INSULIN LISPRO SLIDING SCALE 100 UNITS/ML VIAL SUBQ PRN ×2 (11:51→16:35)
--- NOTE | 2019-08-26 12:30 | NUR ---
PATIENT ASSISTED WITH LUNCH. BIPAP KEPT IN PLACE TO MAINTAIN O2 >90%.
--- NOTE | 2019-08-26 12:57 | NUR ---
PT REMAINS ON BIPAP. TOLERATING WELL. ALARMS ON AND FUNCTIONING.
--- NOTE | 2019-08-26 14:45 | NUR ---
PATIENT TOLERATING BIPAP. ASSISTED PATIENT WITH BEDPAN. PATIENT VOIDED X1 AND BM X1 LARGE.
--- NOTE | 2019-08-26 17:30 | NUR ---
PATIENT ASSISTED WITH BEDPAN. PATIENT VOIDED X1. EDUCATED TO USE CALL LIGHT FOR ASSISTANCE.
--- NOTE | 2019-08-26 19:30 | NUR ---
RECEIVED PT AAOX4 , PER AM NURSE PT IS FROM ICU . PT IS NID - O2 SAT WNL - ON BI PAP FIO2 85% - TOLERATING WELL . IV SITES INTACT AND PATENT .COVID19+ - ON DROPLET / CONTACT ISOLATION - FULL CODE .SAFETY MEASURES II PLACE . CALL LIGHT WITHIN REACH , PT USES BEDPAN . PLAN OD F CARE DISCUSSED AND VERBALIZE UNDERSTANDING. WILL CONT. TO MONITOR -FOR CLOSELY WATCH .
--- NOTE | 2019-08-26 22:00 | NUR ---
MADE ROUNDS , NO S/SX OF ACUTE DISTRESS NOTED AT THIS TIME . WILL CONT. TO MONITOR.
[2019-08-27] VITALS: BP 122/70
--- NOTE | 2019-08-27 | NUR ---
MADE ROUNDS , NO S/SX OF ACUTE DISTRESS NOTED - O2 SAT WNL . NO COMPLAIN MADE - WILL CONT. TO MONITOR.
--- NOTE | 2019-08-27 02:00 | NUR ---
O2 SAT WNL . NO S/SX OF ACUTE DISTRESS NOTED . ON BI PAP - TOLERATING WELL .
[2019-08-27 04:00] VITALS: BP 118/71
--- NOTE | 2019-08-27 04:00 | NUR ---
ON BI PAP FIO2 85% - TOLERATING WELL - O2 SAT WNL - NO S/SX OF ACUTE DISTRESS NOTED AT THIS TIME .
--- NOTE | 2019-08-27 06:00 | NUR ---
MADE ROUNDS . NO S/SX OF ACUTE DISTRESS NOTED AT THIS TIME . WILL CONT. TO MONITOR.
[2019-08-27 06:12] LABS: BASOPHILS % (AUTO) 0.4 % (0.0-2.0); EOSINOPHILS # (AUTO) 0.3 K/uL (0-0.4); EOSINOPHILS % (AUTO) 2.5 % (0.0-4.0); HEMATOCRIT 41.6 % (36-48); HEMOGLOBIN 13.5 g/dL (12.0-16.0); LYMPHOCYTES # (AUTO) 1.2 K/uL (2.5-16.5); LYMPHOCYTES % (AUTO) 10.8 % (20.5-51.1); MEAN CORPUSCULAR HEMOGLOBIN 29 pg (27-31); MEAN CORPUSCULAR HGB CONC 32 g/dL (33-37); MEAN CORPUSCULAR VOLUME 88.6 fL (80-94); MONOCYTES # (AUTO) 0.8 K/uL (0.8-1.0); MONOCYTES % (AUTO) 7.2 % (1.7-9.3); NEUTROPHILS # (AUTO) 8.6 K/uL (1.8-7.7); NEUTROPHILS % (AUTO) 79.1 % (42.2-75.2); PLATELET COUNT (AUTO) 460 K/uL (140-450); RED BLOOD CELL COUNT(AUTO) 4.69 MIL/uL (4.20-5.40); RED CELL DISTRIBUTION WIDTH 13.9 % (11.6-13.7); WHITE BLOOD COUNT (AUTO) 10.8 K/uL (4.8-10.8)
[2019-08-27 06:25] LABS: ANION GAP 11.4 (8-16); CARBON DIOXIDE 30.3 mmol/L (21-32); CREATININE 0.7 mg/dL (0.6-1.3); POTASSIUM 3.7 mmol/L (3.5-5.1)
[2019-08-27] MEDS: BLOOD GLUCOSE MONITORING 1 DEV DEV FS SCH ×4 (06:28→20:43)
--- NOTE | 2019-08-27 07:21 | NUR ---
MADE ROUNDS , NO S/SX OF ACUTE DISTRESS NOTED . WILL CONT. TO MONITOR . I TOLD TO AM NURSE EVEN THOUGH PT . TOLERATING WELL THE BI PAP AND O2 SAT WNL FOR THE WHOLE SHIFT BUT THE HIGHEST O2 SAT IS 94%.- ENDORSED . Addendum: 08/27/19 at 0810 by Anne Rodriguez RN THE WORDS MADE ROUNDS , NO S/SX OF ACUTE DISTRESS NOTED , WILL CONT. TO MONITOR IS AN ERROR ENTRY , INSTEAD OF ENDORSED TO AM SHIFT NURSE - PT - STABLE .
--- NOTE | 2019-08-27 07:22 | NUR ---
RECEIVED PT AAOX4 FROM MARKETING FINANCIAL ANALYST NURSE AT BEDSIDE FOR CONTINUITY OF CARE. PT PORTUGUESE SPEAKING, ON BIPAP 90% O2 SATURATION AT 92%. IV SITES INTACT AND PATENT, IVF INFUSING WELL. COVID19+ - ON DROPLET / CONTACT ISOLATION. PATIENT USES BEDPAN. UPDATED BOARD. UPDATED PATIENT WITH PLAN OF CARE. SHE VERBALIZED UNDERSTANDING. DROPLET PRECAUTIONS IN PLACE, CALL LIGHT WITHIN REACH, WILL CONTINUE TO MONITOR PATIENT.
[2019-08-27 08:00] VITALS: BP 134/85
[2019-08-27] MEDS: guaiFENesin 600 MG TABER PO SCH ×2 (08:28→20:51)
[2019-08-27] MEDS: VITAMIN D 400 IU TAB PO SCH (08:28)
[2019-08-27] MEDS: ZINC SULF 220 MG CAP PO SCH ×2 (08:28→20:51)
[2019-08-27] MEDS: ALBUTEROL SULFATE/IPRATROPIU 3 ML SOL IH SCH ×3 (08:29→19:00)
[2019-08-27] MEDS: LACTOBACILLUS RHAMNOSUS GG 1 EACH CAP PO SCH (08:29)
[2019-08-27] MEDS: ASCORBIC ACID 500 MG TAB PO SCH (08:29)
[2019-08-27] MEDS: ENOXAPARIN 80 MG/0.8 ML SYR SUBQ SCH (08:29)
[2019-08-27] MEDS: ACETYLCYSTEINE 10% (100 MG/ML) 100 MG/ML VIAL INH SCH ×3 (08:30→19:00)
--- NOTE | 2019-08-27 08:30 | NUR ---
PATIENT FINISHING UP WITH HER BREATHING TREATMENT. RT RICHARD AT SIDE. ORDERED MEDICATIONS GIVEN. PATIENT TOLERATED THEM. DROPLET AND SAFETY PRECAUTIONS IN PLACE, CALL LIGHT WITHIN IN REACH, WILL CONTINUE TO MONITOR PATIENT.
--- NOTE | 2019-08-27 09:35 | NUR ---
PATIENT TO BE MOVED TO ROOM 129A. CALLED RT RICHARD TO ASSIST. NO ANSWER. LEFT A MESSAGE. WILL MOVE PATIENT WHEN RT RESPONSE. WILL CONTINUE TO MONITOR PATIENT.
--- NOTE | 2019-08-27 10:16 | NUR ---
(08/27/19) AYAZ INITIAL ASSESSMENT COMPLETED PLEASE REFER TO NUTRITION ASSESSMENT UNDER CARE ACTIVITY FOR ESTIMATED NUTRITIONAL NEEDS. RD RECOMMENDATIONS: 1. CONTINUE REGULAR DIET TOLERATED. 2. CONSULT AYAZN PRN. 3. RD WILL F/U 3-5 DAYS; MODERATE RISK. KAYODE MARIO MS, RDN Addendum: 08/27/19 at [address] DISREGARD DUE TO WRONG PT
--- NOTE | 2019-08-27 11:21 | NUR ---
(08/27/19) RD FOLLOW UP COMPLETED PLEASE REFER TO NUTRITION PROGRESS NOTE UNDER CARE ACTIVITY FOR ESTIMATED NUTRITION NEEDS. RD RECOMMENDATIONS: 1. CONTINUE PUREE CCHO 60GM DIET TOLERATED 2. CONTINUE GLUCERNA TID 3. RD TO FOLLOW-UP 3-5 DAYS, MODERATE RISK KAYODE MARIO MS, RDN
[2019-08-27 12:00] VITALS: BP 121/75
[2019-08-27] MEDS: NACL 0.9% 1,000 ML IV SCH (12:10)
--- NOTE | 2019-08-27 12:10 | NUR ---
PATIENT MOVED FROM ROOM 131A TO 129A. ALL OF PATIENT' BELONGINGS TAKEN. AWARE OF CHANGE. WILL CONTINUE TO MONITOR PATIENT.
--- NOTE | 2019-08-27 14:30 | NUR ---
AWAKE AND ALERT "LOOKING AT CELLPHONE" EXP Vt GREATER THAN 8 ml/kg POST HHN THERAPY DECREASED IPAP 14 EPAP 10 ELEVATOR TECHNICIAN TO MONITOR ELEVATOR TECHNICIAN TO NOTIFY [place]/RN
--- NOTE | 2019-08-27 15:30 | NUR ---
ADMITTING CALLED, IN FRONT, PER , DR. SOLER MENTIONED THAT IF PATIENT TESTS NEGATIVE FOR COVID, CAN VISIT. INFORMED PT'S , THAT IS UP TO ADMINISTRATION. ESTEBAN, CREDIT AND COLLECTIONS REPRESENTATIVE ALLOWING PATIENT'S TO VIEW PATIENT VIA WINDOW. SECURITY WILL BE TAKING TO PATIENT'S WINDOW. INFORM PATIENT THAT HER IS COMING BY AND CAN BE VIEWED VIA WINDOW. WILL CONTINUE TO MONITOR PATIENT.
[2019-08-27 16:00] VITALS: BP 117/76
[2019-08-27 16:30] LABS: FERRITIN 564 ng/mL (15 - 150); LACTATE DEHYDROGENASE 632 IU/L (0-214)
[2019-08-27] MEDS: INSULIN LISPRO SLIDING SCALE 100 UNITS/ML VIAL SUBQ PRN ×2 (17:24→20:46)
--- NOTE | 2019-08-27 17:24 | NUR ---
BLOOD SUGAR 164, COVERAGE GIVEN. PATIENT TOLERATED IT. PATIENT CURRENTLY SITTING IN BED ON CELLPHONE. NO COMPLAINTS AT THIS TIME. CALL LIGHT WITHIN REACH, WILL CONTINUE TO MONITOR PATIENT.
--- NOTE | 2019-08-27 19:20 | NUR ---
RECEIVED PATIENT IN STABLE CONDITION FROM AM SHIFT NURSE FOR CONTINUITY OF CARE. TELE PATIENT. RESPIRATIONS EVEN, UNLABORED. CONTINUES ON BIPAP WITH AN O2SAT 94%. NO C/O PAIN. NO S/S ACUTE DISTRESS. SKIN WARM, DRY. SALINE LOCK TO LEFT AC 20G PATENT/INTACT. IV SITE TO RIGHT AC 18G PATENT/INTACT, INFUSING FLUIDS WELL. PLAN OF CARE DISCUSSED WITH PATIENT. CALL LIGHT WITHIN REACH. SAFETY PRECAUTIONS IN PLACE. ISOLATION PRECAUTIONS OBSERVED BY ALL STAFF.
--- NOTE | 2019-08-27 19:25 | NUR ---
REPORT GIVEN TO INFORMATION ASSURANCE NURSE. PATIENT IN STABLE CONDITION.
[2019-08-27 20:00] VITALS: BP 130/73
[2019-08-27] MEDS: FUROSEMIDE 20 MG/2 ML VIAL IVP SCH (21:00)
--- NOTE | 2019-08-27 21:00 | NUR ---
PATIENT CONTINUES IN STABLE CONDITION. ENCOURAGED FREQUENT REST PERIODS. PATIENT IS VERY COMPLIANT AND RECEPTIVE TO TEACHING. NO C/O PAIN. NO S/S ACUTE DISTRESS. CALL LIGHT WITHIN REACH. SAFETY PRECAUTIONS IN PLACE. ISOLATION PRECAUTIONS OBSERVED BY ALL STAFF.
--- NOTE | 2019-08-27 23:00 | NUR ---
DUE MEDS GIVEN ORDERED. PATIENT AWAKE AND WEARING BIPAP. NO C/O PAIN. NO S/S ACUTE DISTRESS. CALL LIGHT WITHIN REACH. SAFETY PRECAUTIONS IN PLACE. ISOLATION PRECAUTIONS OBSERVED BY ALL STAFF.
[2019-08-28] VITALS: BP 109/73
[2019-08-28] MEDS: NACL 0.9% 1,000 ML IV SCH ×2 (00:40→13:00)
--- NOTE | 2019-08-28 01:22 | NUR ---
PROVIDED BEDPAN FOR PATIENT. NO C/O PAIN. NO S/S ACUTE DISTRESS. CALL LIGHT WITHIN REACH. SAFETY PRECAUTIONS IN PLACE. ISOLATION PRECAUTIONS OBSERVED BY ALL STAFF.
--- NOTE | 2019-08-28 03:20 | NUR ---
RECEIVED REPORT FROM LAB, PATIENT IS COVID+.
[2019-08-28 04:00] VITALS: BP 117/76
--- NOTE | 2019-08-28 05:45 | NUR ---
PATIENT RESTING COMFORTABLY IN BED. NO C/O PAIN. NO S/S ACUTE DISTRESS. CALL LIGHT WITHIN REACH. SAFETY PRECAUTIONS IN PLACE. ISOLATION PRECAUTIONS OBSERVED BY ALL STAFF.
[2019-08-28 05:55] LABS: BASOPHILS # (AUTO) 0.2 K/uL (0.00-0.22); BASOPHILS % (AUTO) 1.5 % (0.0-2.0); EOSINOPHILS # (AUTO) 0.3 K/uL (0-0.4); EOSINOPHILS % (AUTO) 2.3 % (0.0-4.0); HEMATOCRIT 42.9 % (36-48); HEMOGLOBIN 13.9 g/dL (12.0-16.0); LYMPHOCYTES # (AUTO) 1.3 K/uL (2.5-16.5); LYMPHOCYTES % (AUTO) 11.6 % (20.5-51.1); MEAN CORPUSCULAR HEMOGLOBIN 29 pg (27-31); MEAN CORPUSCULAR HGB CONC 32 g/dL (33-37); MEAN CORPUSCULAR VOLUME 88.5 fL (80-94); MONOCYTES # (AUTO) 0.6 K/uL (0.8-1.0); MONOCYTES % (AUTO) 4.9 % (1.7-9.3); NEUTROPHILS # (AUTO) 9.2 K/uL (1.8-7.7); NEUTROPHILS % (AUTO) 79.7 % (42.2-75.2); PLATELET COUNT (AUTO) 482 K/uL (140-450); RED BLOOD CELL COUNT(AUTO) 4.85 MIL/uL (4.20-5.40); WHITE BLOOD COUNT (AUTO) 11.5 K/uL (4.8-10.8)
[2019-08-28] MEDS: BLOOD GLUCOSE MONITORING 1 DEV DEV FS SCH ×4 (05:55→21:00)
[2019-08-28 06:29] LABS: ANION GAP 14.3 (8-16); CARBON DIOXIDE 29.1 mmol/L (21-32); CREATININE 0.6 mg/dL (0.6-1.3); POTASSIUM 3.4 mmol/L (3.5-5.1)
[2019-08-28] MEDS: ALBUTEROL SULFATE/IPRATROPIU 3 ML SOL IH SCH ×2 (06:49→12:59)
--- NOTE | 2019-08-28 06:49 | NUR ---
rec'd pt on venkat v60 bipap settings / rr 14 fio2 85% alarms on and audible and bvm at hob and bipap is plugged into red outlet, b\s are coarse and pt was sleeping no hhn given at this time, pt is wearing small face mask
[2019-08-28] MEDS: ACETYLCYSTEINE 10% (100 MG/ML) 100 MG/ML VIAL INH SCH (06:50)
[2019-08-28 08:00] VITALS: BP 121/84
[2019-08-28] MEDS: ZINC SULF 220 MG CAP PO SCH ×2 (09:36→21:50)
[2019-08-28] MEDS: ASCORBIC ACID 500 MG TAB PO SCH (09:36)
[2019-08-28] MEDS: VITAMIN D 400 IU TAB PO SCH (09:36)
[2019-08-28] MEDS: LACTOBACILLUS RHAMNOSUS GG 1 EACH CAP PO SCH (09:36)
[2019-08-28] MEDS: guaiFENesin 600 MG TABER PO SCH ×2 (09:36→21:49)
[2019-08-28] MEDS: ENOXAPARIN 100 MG/ML SYR SUBQ SCH (09:37)
[2019-08-28] MEDS: FUROSEMIDE 20 MG/2 ML VIAL IVP SCH (09:37)
[2019-08-28] MEDS ORDERED: LORazepam 2 MG/ML VIAL IM/IVP SCH (11:15)
--- NOTE | 2019-08-28 11:22 | NUR ---
ONE TIME DOSE OF ATIVAN GIVEN FOR PATIENT'S ANXIETY. O2 93% ON 90% BIPAP, HR 141. PATIENT TOLERATED IT AND VERBALIZED UNDERSTANDING ABOUT INDICATION AND BENEFIT OF MEDICATION. SAFETY AND DROPLET PRECAUTIONS IN PLACE, CALL LIGHT WITHIN REACH, WILL CONTINUE TO MONITOR PATIENT.
[2019-08-28 12:10] VITALS: BP 119/81
[2019-08-28] MEDS: INSULIN LISPRO SLIDING SCALE 100 UNITS/ML VIAL SUBQ PRN ×3 (12:22→22:13)
[2019-08-28] MEDS ORDERED: LORazepam 2 MG/ML VIAL IM/IVP PRN (13:10)
--- NOTE | 2019-08-28 13:24 | NUR ---
increased fio2 as per and rn binu notified of changes made
[2019-08-28 16:00] VITALS: BP 120/74
--- NOTE | 2019-08-28 19:15 | NUR ---
RECD. RESTING IN BED, AWAKE, A/OX4. ON BIPAP, 02 SATURATION AT 96%, TACHYCARDIC, HR OF 130, RESPIRATION EVEN AND UNLABORED. IV OF NS AT 10 ML/HR INFUSING RIGHT AC G20, SALINE LOCK AT THE LEFT AC G18, PATENT AND INTACT. ABLE TO VERBALIZED NEEDS, USES BEDPAN WITH ASSISTANCE. PLAN OF CARE DISCUSSED. VERBALIZED UNDERSTANDING. DENIES PAIN 0/10.
--- NOTE | 2019-08-28 19:16 | NUR ---
Patient's Plan of Care was discussed and reviewed with WASHER AND CAPPER MACHINE OPERATOR: NANCY PALOMINO. WILL CONTINUE TO MONITOR.
[2019-08-28 20:00] VITALS: BP 111/71
--- NOTE | 2019-08-28 21:50 | NUR ---
DUE PO MEDICATIONS GIVEN WITH APPLE SAUCE, TOLERATED WELL.
--- NOTE | 2019-08-28 22:20 | NUR ---
RT CAME AND CHECK BIPAP FOR ANY LEAK.
--- NOTE | 2019-08-28 23:00 | NUR ---
SLEEPING COMFORTABLY IN BED, 02 SA- 95%, HR -117.
[2019-08-29] VITALS: BP 106/66
--- NOTE | 2019-08-29 01:30 | NUR ---
WITH UNPRODUCTIVE COUGHING. 02 SAT- 91%, HR - 133. BACK TO SLEEP - HR - 126, 02 SAT - 94%.
--- NOTE | 2019-08-29 03:00 | NUR ---
SLEEPING COMFORTABLY, 02 SAT -95%, HR - 118. BIPAP ALARMING, DUE TO LEAK. RT CAME AND ADJUSTED MASK.
[2019-08-29 04:00] VITALS: BP 101/71
[2019-08-29 06:08] LABS: LD2 FRACTION 33 % (25-40); LD3 FRACTION 25 % (17-27); LD4 FRACTION 11 % (5-13); LD5 FRACTION 15 % (4-20)
[2019-08-29 06:15] LABS: BASOPHILS # (AUTO) 0.1 K/uL (0.00-0.22); BASOPHILS % (AUTO) 0.9 % (0.0-2.0); EOSINOPHILS # (AUTO) 0.7 K/uL (0-0.4); EOSINOPHILS % (AUTO) 5.3 % (0.0-4.0); HEMATOCRIT 44.8 % (36-48); HEMOGLOBIN 14.6 g/dL (12.0-16.0); LYMPHOCYTES # (AUTO) 1.2 K/uL (2.5-16.5); LYMPHOCYTES % (AUTO) 9.2 % (20.5-51.1); MEAN CORPUSCULAR HEMOGLOBIN 29 pg (27-31); MEAN CORPUSCULAR HGB CONC 33 g/dL (33-37); MEAN CORPUSCULAR VOLUME 88.5 fL (80-94); MONOCYTES # (AUTO) 0.8 K/uL (0.8-1.0); MONOCYTES % (AUTO) 5.7 % (1.7-9.3); NEUTROPHILS # (AUTO) 10.5 K/uL (1.8-7.7); NEUTROPHILS % (AUTO) 78.9 % (42.2-75.2); PLATELET COUNT (AUTO) 454 K/uL (140-450); RED BLOOD CELL COUNT(AUTO) 5.07 MIL/uL (4.20-5.40); RED CELL DISTRIBUTION WIDTH 14.4 % (11.6-13.7); WHITE BLOOD COUNT (AUTO) 13.3 K/uL (4.8-10.8)
[2019-08-29 06:35] LABS: ANION GAP 9.8 (8-16); CARBON DIOXIDE 31.5 mmol/L (21-32); CREATININE 0.8 mg/dL (0.6-1.3); POTASSIUM 3.3 mmol/L (3.5-5.1)
[2019-08-29] MEDS: ALBUTEROL SULFATE/IPRATROPIU 3 ML SOL IH SCH ×3 (06:50→19:55)
--- NOTE | 2019-08-29 06:50 | NUR ---
rec'd pt on venkat v60 bipap settings / rr 14 fio2 100% alarms on and audible and bvm at hob and bipap is plugged into red outlet, t\l tx given with duoneb 3ml with no adverse reaction post tx b\s are diminished bilaterally, pt wearing small face mask with protetic gel in place, pt is resting
--- NOTE | 2019-08-29 07:00 | NUR ---
CONDITION REMAIN STABLE. 02 SAT -95%, HR -116. NO RESPIRATORY DISTRESS. WILL ENDORSE TO AM SHIFT NURSE FOR CONTINUITY OF CARE.
[2019-08-29] MEDS: BLOOD GLUCOSE MONITORING 1 DEV DEV FS SCH ×4 (07:30→21:00)
[2019-08-29 08:00] VITALS: BP 113/77
[2019-08-29] MEDS: ENOXAPARIN 100 MG/ML SYR SUBQ SCH (09:53)
[2019-08-29] MEDS: ZINC SULF 220 MG CAP PO SCH ×2 (09:54→21:50)
[2019-08-29] MEDS: LACTOBACILLUS RHAMNOSUS GG 1 EACH CAP PO SCH (09:54)
[2019-08-29] MEDS: VITAMIN D 400 IU TAB PO SCH (09:54)
[2019-08-29] MEDS: ASCORBIC ACID 500 MG TAB PO SCH (09:56)
[2019-08-29 12:00] VITALS: BP 116/77
[2019-08-29] MEDS: guaiFENesin 600 MG TABER PO SCH ×2 (12:30→21:50)
[2019-08-29] MEDS: INSULIN LISPRO SLIDING SCALE 100 UNITS/ML VIAL SUBQ PRN ×3 (12:33→22:07)
[2019-08-29] MEDS ORDERED: POTASSIUM CHLORIDE 10 MEQ TABER PO SCH (13:00)
--- NOTE | 2019-08-29 13:37 | NUR ---
FAXED PATIENTS CLINICALS TO [facility] WILL FOLLOW UP Addendum: 08/29/19 at 1648 by Alyson Avelar CM DC PLANNING: RECEIVED A CALL FROM [facility] WITH [facility] WON'T TAKE MEDICAL PATIENT WITHOUT ETT. Addendum: 09/01/19 at 1152 by aDnia Almendarez CM RECEIVED AN ORDER FOR [facility] EVAL. REFERRAL SENT TO [facility]. Addendum: 09/08/19 at 1410 by Dania Almendarez CM SEEN BY PT TODAY. Addendum: 09/12/19 at 1639 by Dania Almendarez CM STILL ON BIPAP, O2 SAT 96%. ON SOLU MEDROL. SEEN BY JANETH - CONTINUE TRIALS WEANING OFF BIPAP, PROGNOSIS REMAINS GUARDED. Addendum: 09/14/19 at 1658 by Dania Almendarez CM ON BIPAP, FIO2 45%, O2 SAT 95%. ON SOLU MEDROL.
[2019-08-29] MEDS: NACL 0.9% 1,000 ML IV SCH (14:36)
[2019-08-29] MEDS ORDERED: POTASSIUM CHLORIDE 20% 40 MEQ/15 ML UDC PO SCH (14:41)
--- NOTE | 2019-08-29 14:47 | NUR ---
DR HUERTAS MADE AWARE OF PATIENT HR 115-130S, STATES IS MOST LIKELY RELATED TO COVID. NO NEW ORDER AT THIS TIME. WILL CONTINUE TO MONITOR.
[2019-08-29 16:00] VITALS: BP 117/79
--- NOTE | 2019-08-29 17:00 | NUR ---
PATIENT RESTING IN BED, IN NO S/S RESPIRATORY DISTRESS, NO C/O OF PAIN AT THIS TIME. PT STILL ON BIPAP, STABILIZED, OXYGEN SATURATION 95%. PT BLOOD SUGAR 157, COVERED WITH 2 UNITS HUMALOG INSULIN. ALL NEEDS MET, CALL LIGHT WITHIN REACH. WILL CONTINUE TO MONITOR.
--- NOTE | 2019-08-29 19:00 | NUR ---
REPORT GIVEN TO WEB EDITOR NURSE REGARDING PATIENT STATUS AND PLAN OF CARE. PT IS CURRENTLY RESTING IN BED, STABILIZED, STILL ON BIPAP. SATURATION CURRENTLY 96%. ALL NEEDS MET, CALL LIGHT WITHIN REACH, DROPLET PRECAUTIONS FOLLOWED.
--- NOTE | 2019-08-29 19:01 | NUR ---
RECEIVED REPORT FROM RASHAAD RN, FOR CONTINUITY OF CARE. PT IS A&OX3-4; LUXEMBOURG[place] SPEAKING. COVID +. RESPIRATIONS ARE EVEN AND UNLABORED, BREATHING TO BIPAP @ 90%; SPO2: 96%. RAC 20G IS PATENT AND INTACT, AND RUNNING TKO. SKIN INTACT. CCHO PUREED DIET. REVIEWED PLAN OF CARE WITH PATIENT. DROPLET PRECAUTIONS IN PLACE. SIGNS POSTED. TELE MONITOR ATTACHED. SINUS TACHYCARDIA ON THE MONITOR. SAFETY MEASURES IN PLACE, BED IN LOW POSITION, CALL LIGHT WITHIN REACH. NO DISTRESS NOTED. WILL CONTINUE TO MONITOR.
[2019-08-29 20:00] VITALS: BP 128/90
--- NOTE | 2019-08-29 21:59 | NUR ---
PT'S SCHEDULED MEDICATIONS GIVEN, WITH MEDICATION EDUCATION PROVIDED. PT'S MDS WERE CRUSHED AND MIXED WITH WATER, PT TOLERATED PO MEDS WELL. BLOOD SUGAR CHECKED; BGL: 160. INSULIN COVERAGE NEEDED. TELE MONITOR ATTACHED. SAFETY MEASURES IN PLACE, BED IN LOW POSITION, CALL LIGHT WITHIN REACH. NO DISTRESS NOTED. WILL CONTINUE TO MONITOR.
[2019-08-30] VITALS (7 sets, daily range): BP systolic 116–133; BP diastolic 74–92
--- NOTE | 2019-08-30 04:09 | NUR ---
PT IS RESTING IN BED, AROUSABLE TO VOICE. VITAL SIGNS TAKEN; BP: 122/78, PULSE: 110, TEMP: 97.8, SPO2: 97%, RR: 22. PT IS BREATHING TO BIPAP. TELE MONITOR ATTACHED. SAFETY MEASURES IN PLACE. NO ACUTE DISTRESS NOTED. WILL CONTINUE TO MONITOR.
--- NOTE | 2019-08-30 06:12 | NUR ---
PER RESPIRATORY THERAPIST, PT IS NOW BREATHING TO BIPAP AT 80%.
[2019-08-30] MEDS: ALBUTEROL SULFATE/IPRATROPIU 3 ML SOL IH SCH ×3 (06:54→19:00)
[2019-08-30] MEDS: BLOOD GLUCOSE MONITORING 1 DEV DEV FS SCH ×4 (07:08→20:32)
--- NOTE | 2019-08-30 07:14 | NUR ---
GAVE REPORT TO DAYSHIFT NURSE, FOR CONTINUITY OF CARE. PT IS IN STABLE CONDITION.
--- NOTE | 2019-08-30 07:15 | NUR ---
RECEIVED REPORT FROM PM RNSANFORD. C/O FEVER, SOB, BODY ACHES. DX: PNEUMONIA, UNSTABLE HYPOXIA, +COVID. HX: DM. NKA. ST 115-130. RT AC 20G NS AT 10ML/HR TKO. PUREE DIET. AXO 3-4 LITHUANIAN SPEAKING. USE BEDPAN. SKIN IS INTACT. O2 OXIMIZER. FIO2 90 TO 80%. WILL CONTINUE TO MONITOR.
[2019-08-30] MEDS: ENOXAPARIN 100 MG/ML SYR SUBQ SCH (08:29)
[2019-08-30] MEDS: ZINC SULF 220 MG CAP PO SCH ×2 (08:30→20:32)
[2019-08-30] MEDS: VITAMIN D 400 IU TAB PO SCH (08:30)
[2019-08-30] MEDS: LACTOBACILLUS RHAMNOSUS GG 1 EACH CAP PO SCH (08:30)
[2019-08-30] MEDS: ASCORBIC ACID 500 MG TAB PO SCH (08:31)
--- NOTE | 2019-08-30 09:00 | NUR ---
meds given. crushed and mixed with water. pt desats when feeding.
--- NOTE | 2019-08-30 10:00 | NUR ---
pt passed tool and voided in bed venegas. cleaned pt and emptied bedpan.
--- NOTE | 2019-08-30 11:30 | NUR ---
bs 155, 2 units given
--- NOTE | 2019-08-30 12:00 | NUR ---
spoke with family member. wanted an update.
[2019-08-30] MEDS: INSULIN LISPRO SLIDING SCALE 100 UNITS/ML VIAL SUBQ PRN ×3 (12:09→20:32)
[2019-08-30] MEDS: guaiFENesin 600 MG TABER PO SCH ×2 (12:29→20:32)
[2019-08-30] MEDS: NACL 0.9% 1,000 ML IV SCH (13:10)
--- NOTE | 2019-08-30 16:30 | NUR ---
bs 169. 2 units given
[2019-08-30] MEDS ORDERED: POTASSIUM CHLORIDE 40 MEQ, LIDOCAINE MPF 1% 25 MG in NACL 0.9% 250 ML IV SCH (17:00)
--- NOTE | 2019-08-30 17:00 | NUR ---
butch santillan given. no complaints of pain.
[2019-08-30 18:00] LABS: BASOPHILS # (AUTO) 0.1 K/uL (0.00-0.22); BASOPHILS % (AUTO) 0.4 % (0.0-2.0); EOSINOPHILS # (AUTO) 0.7 K/uL (0-0.4); EOSINOPHILS % (AUTO) 5.1 % (0.0-4.0); HEMATOCRIT 43.5 % (36-48); HEMOGLOBIN 13.9 g/dL (12.0-16.0); LYMPHOCYTES # (AUTO) 0.9 K/uL (2.5-16.5); LYMPHOCYTES % (AUTO) 6.6 % (20.5-51.1); MEAN CORPUSCULAR HEMOGLOBIN 29 pg (27-31); MEAN CORPUSCULAR HGB CONC 32 g/dL (33-37); MEAN CORPUSCULAR VOLUME 89.4 fL (80-94); MONOCYTES # (AUTO) 0.7 K/uL (0.8-1.0); MONOCYTES % (AUTO) 4.8 % (1.7-9.3); NEUTROPHILS # (AUTO) 11.7 K/uL (1.8-7.7); NEUTROPHILS % (AUTO) 83.1 % (42.2-75.2); PLATELET COUNT (AUTO) 412 K/uL (140-450); RED BLOOD CELL COUNT(AUTO) 4.86 MIL/uL (4.20-5.40); RED CELL DISTRIBUTION WIDTH 14.4 % (11.6-13.7)
--- NOTE | 2019-08-30 18:00 | NUR ---
helped pt drink water. pt desat to 87%. waited bedside for 02 sat to increase. pt resumed 90%
[2019-08-30 18:10] LABS: ANION GAP 10.3 (8-16); CARBON DIOXIDE 30.5 mmol/L (21-32); CREATININE 0.7 mg/dL (0.6-1.3); POTASSIUM 3.8 mmol/L (3.5-5.1)
--- NOTE | 2019-08-30 19:30 | NUR ---
RECEIVED BEDSIDE REPORT FROM DAY RN. PT IS AAOX4. AMHARIC SPEAKING. RESPIRATIONS ARE EQUAL AND SHALLOW ON BIPAP SAT WELL 96% HR ELEVATED 133. SKIN IS INTACT. PT IS CONTINENT ON BEDREST D/T SEVERE SOB. DX:PNA, COVID + ON DROPLET ISOLATION. IV ON RAC 20G TKO. POC DISCUSSED WITH PT. CALL LIGHT IS WITHIN REACH. WILL ROUND FREQUENTLY.
--- NOTE | 2019-08-30 20:32 | NUR ---
VSS. SAT WELL 95% RR 21 ON BIPAP FIO2 80%. MADELIN MEDICATION CRUSHED AND GIVEN WITH WATER. PT TOLERATED WELL. MED EDUCATION GIVEN PT VERBALIZED UNDERSTANDING. CALL LIGHT IS WITHIN REACH. WILL CONTINUE TO MONITOR.
--- NOTE | 2019-08-30 22:15 | NUR ---
MADE ROUNDS. PT REMAINS ON BIPAP SAT WELL 95%. NO S/S OF DISTRESS. WATCHING TV WITH CALL LIGHT WITHIN REACH.
[2019-08-31] VITALS: BP 124/86
--- NOTE | 2019-08-31 | NUR ---
VITAL SIGNS ARE WITHIN NORMAL LIMITS. REMAINS ON BIPAP FIO2 80% SAT WELL 92%. ALL NEEDS MET. CALL LIGHT IS WITHIN REACH. WILL CONTINUE TO MONITOR.
--- NOTE | 2019-08-31 02:00 | NUR ---
MADE ROUNDS. PT IS SLEEPING COMFORTABLY IN BED WITH EYES CLOSED. CHEST RISE AND FALL NOTED. SAFETY MEASURES ARE IN PLACE. CALL LIGHT IS WITHIN REACH.
[2019-08-31 04:00] VITALS: BP 116/72
--- NOTE | 2019-08-31 04:00 | NUR ---
VITAL SIGNS ARE WITHIN NORMAL LIMITS. ALL SAFETY MEASURES ARE IN PLACE. CALL LIGHT IS WITHIN REACH.
[2019-08-31 05:59] LABS: BASOPHILS # (AUTO) 0.1 K/uL (0.00-0.22); BASOPHILS % (AUTO) 0.7 % (0.0-2.0); EOSINOPHILS # (AUTO) 0.7 K/uL (0-0.4); EOSINOPHILS % (AUTO) 6.9 % (0.0-4.0); HEMATOCRIT 40.8 % (36-48); HEMOGLOBIN 13.4 g/dL (12.0-16.0); LYMPHOCYTES # (AUTO) 1.1 K/uL (2.5-16.5); MEAN CORPUSCULAR HEMOGLOBIN 29 pg (27-31); MEAN CORPUSCULAR HGB CONC 33 g/dL (33-37); MONOCYTES # (AUTO) 0.6 K/uL (0.8-1.0); MONOCYTES % (AUTO) 5.9 % (1.7-9.3); NEUTROPHILS # (AUTO) 7.8 K/uL (1.8-7.7); NEUTROPHILS % (AUTO) 75.5 % (42.2-75.2); PLATELET COUNT (AUTO) 362 K/uL (140-450); RED BLOOD CELL COUNT(AUTO) 4.58 MIL/uL (4.20-5.40); RED CELL DISTRIBUTION WIDTH 14.3 % (11.6-13.7); WHITE BLOOD COUNT (AUTO) 10.3 K/uL (4.8-10.8)
[2019-08-31] MEDS: BLOOD GLUCOSE MONITORING 1 DEV DEV FS SCH ×4 (06:49→21:00)
[2019-08-31 06:50] LABS: ALBUMIN 2.9 g/dL (3.4-5.0); ANION GAP 12.9 (8-16); CARBON DIOXIDE 29.8 mmol/L (21-32); CREATININE 0.6 mg/dL (0.6-1.3); MAGNESIUM 2.1 mg/dL (1.8-2.4); PHOSPHORUS 3.7 mg/dL (2.5-4.9); POTASSIUM 3.7 mmol/L (3.5-5.1); TOTAL BILIRUBIN 0.6 mg/dL (0.0-1.0)
[2019-08-31] MEDS: ALBUTEROL SULFATE/IPRATROPIU 3 ML SOL IH SCH ×3 (07:00→19:00)
--- NOTE | 2019-08-31 07:35 | NUR ---
GAVE BEDSIDE REPORT. PT ENDORSED IN STABLE CONDITION.
--- NOTE | 2019-08-31 07:37 | NUR ---
BEDSIDE REPORT GIVEN BY NIGHT NURSE. PATIENT IN STABLE CONDITION. PATIENT IS ASLEEP, EASILY AROUSABLE BY NAME. PT AOX3. BIPAP IN PLACE, FIO2 80%. O2 SAT 93%. DENIES ANY PAIN OR DISCOMFORT. IV INTACT AND PATENT TO RIGHT AC AND LEFT AC. PLANS OF CARE DISCUSSED. CALL LIGHT WITHIN REACH. BED IN LOW POSITION. SAFETY MEASURES IN PLACE.
[2019-08-31 08:00] VITALS: BP 117/81
[2019-08-31] MEDS: LACTOBACILLUS RHAMNOSUS GG 1 EACH CAP PO SCH (08:31)
[2019-08-31] MEDS: VITAMIN D 400 IU TAB PO SCH (08:31)
[2019-08-31] MEDS: ASCORBIC ACID 500 MG TAB PO SCH (08:31)
[2019-08-31] MEDS: ZINC SULF 220 MG CAP PO SCH ×2 (08:31→20:59)
[2019-08-31] MEDS: guaiFENesin 600 MG TABER PO SCH ×2 (08:32→20:52)
[2019-08-31] MEDS: ENOXAPARIN 100 MG/ML SYR SUBQ SCH (08:38)
--- NOTE | 2019-08-31 09:30 | NUR ---
PATIENT REMAINS STABLE. AAOX3. BIPAP IN PLACE. AM MEDICATIONS TOLERATED WELL. CALL LIGHT WITHIN REACH.
--- NOTE | 2019-08-31 11:30 | NUR ---
ASSISTED PATIENT WITH BEDPAN.
[2019-08-31 12:00] VITALS: BP 140/83
--- NOTE | 2019-08-31 12:00 | NUR ---
PATIENT REMAINS STABLE. AAOX3. BIPAP 80%. O2 SAT 94%. CALL LIGHT WITHIN REACH.
[2019-08-31] MEDS: INSULIN LISPRO SLIDING SCALE 100 UNITS/ML VIAL SUBQ PRN ×2 (12:26→16:39)
[2019-08-31] MEDS: NACL 0.9% 1,000 ML IV SCH (13:10)
--- NOTE | 2019-08-31 14:00 | NUR ---
ASSISTED PATIENT WITH BEDPAN. CALL LIGHT WITHIN REACH. NO DISTRESS NOTED.
--- NOTE | 2019-08-31 15:59 | NUR ---
08/31/19 RD FOLLOW UP COMPLETED PLEASE REFER TO NUTRITION ASSESSMENT UNDER CARE ACTIVITY FOR ESTIMATED NUTRITIONAL NEEDS. 1. CONTINUE PUREE CCHO 60GM DIET TOLERATED 2. CONTINUE GLUCERNA TID 3. RD TO FOLLOW-UP 3-5 DAYS, MODERATE RISK ONESIMO JACINTO, AYAZ
[2019-08-31 16:00] VITALS: BP 118/86
--- NOTE | 2019-08-31 16:00 | NUR ---
BIPAP 80% IN PLACE. PT TOLERATING WELL.
[2019-08-31] MEDS ORDERED: POTASSIUM CHLORIDE 10 MEQ TABER PO PRN (16:35)
[2019-08-31] MEDS ORDERED: MAG SULF 2000 MG/WATER PREMIX 50 ML IV PRN (16:35)
--- NOTE | 2019-08-31 18:00 | NUR ---
PATIENT TOLERATING BIPAP 80%. O2 SAT >90%. PATIENT AWAKE, WATCHING TV. CALL LIGHT WITHIN REACH.
--- NOTE | 2019-08-31 18:54 | NUR ---
PATIENT IN STABLE CONDITION. WILL ENDORSE TO NIGHT NURSE.
--- NOTE | 2019-08-31 19:10 | NUR ---
RECEIVED REPORT FROM RASHAAD RN, FOR CONTINUITY OF CARE. PT IS A&OX3-4; TRINIDADIAN SPEAKING. COVID +. RESPIRATIONS ARE EVEN AND UNLABORED, BREATHING TO BIPAP @ 80%; SPO2: 90%. RAC 18G IS PATENT AND INTACT, AND RUNNING TKO. SKIN INTACT. CCHO PUREED DIET. REVIEWED PLAN OF CARE WITH PATIENT. DROPLET PRECAUTIONS IN PLACE. SIGNS POSTED. TELE MONITOR ATTACHED. SINUS TACHYCARDIA ON THE MONITOR. SAFETY MEASURES IN PLACE, BED IN LOW POSITION, CALL LIGHT WITHIN REACH. NO DISTRESS NOTED. WILL CONTINUE TO MONITOR.
[2019-08-31 20:00] VITALS: BP 129/90
--- NOTE | 2019-08-31 21:05 | NUR ---
RECEIVED REPORT FROM AM SHIFT. PT SEEN AND ASSESSED. PT IS ON BiPAP SETTINGS IPAP 14, EPAP 10, BACK UP RATE 14, FiO2 80% WITH SPO2 OF 93%. PT IN NO APPARENT RESPIRATORY DISTRESS AT THIS TIME. HHN TX GIVEN VIA INLINE AND PT TOLERATED WELL WITH NO ADVERSE REACTION. WILL CONTINUE TO MONITOR PT.
--- NOTE | 2019-08-31 21:07 | NUR ---
PT'S SCHEDULED MEDICATIONS GIVEN. PO MEDICATIONS CRUSHED, AND MIXED WITH WATER; PT DRANK MIXTURE WITH A STRAW WITH BIPAP MASK ON, AND TOLERATED PO MEDS WELL. SPO2: 90% ON BIPAP 80%. NO DISTRESS NOTED. TELE MONITOR ATTACHED. SAFETY MEASURES IN PLACE; BED IN LOW POSITION, CALL LIGHT WITHIN REACH. WILL CONTINUE TO MONITOR.
[2019-09-01] VITALS: BP 111/73
[2019-09-01 04:00] VITALS: BP 123/73
[2019-09-01] MEDS: BLOOD GLUCOSE MONITORING 1 DEV DEV FS SCH ×4 (05:59→21:00)
[2019-09-01 06:15] LABS: BASOPHILS # (AUTO) 0.1 K/uL (0.00-0.22); BASOPHILS % (AUTO) 0.8 % (0.0-2.0); EOSINOPHILS # (AUTO) 0.2 K/uL (0-0.4); EOSINOPHILS % (AUTO) 2.3 % (0.0-4.0); HEMATOCRIT 40.4 % (36-48); HEMOGLOBIN 12.9 g/dL (12.0-16.0); LYMPHOCYTES # (AUTO) 1.1 K/uL (2.5-16.5); LYMPHOCYTES % (AUTO) 10.4 % (20.5-51.1); MEAN CORPUSCULAR HEMOGLOBIN 29 pg (27-31); MEAN CORPUSCULAR HGB CONC 32 g/dL (33-37); MEAN CORPUSCULAR VOLUME 89.1 fL (80-94); MONOCYTES # (AUTO) 0.7 K/uL (0.8-1.0); MONOCYTES % (AUTO) 7.5 % (1.7-9.3); NEUTROPHILS # (AUTO) 7.9 K/uL (1.8-7.7); PLATELET COUNT (AUTO) 336 K/uL (140-450); RED BLOOD CELL COUNT(AUTO) 4.53 MIL/uL (4.20-5.40); RED CELL DISTRIBUTION WIDTH 14.3 % (11.6-13.7); WHITE BLOOD COUNT (AUTO) 10.1 K/uL (4.8-10.8)
--- NOTE | 2019-09-01 06:39 | NUR ---
BLOOD SUGAR CHECKED. BGL: 144; NO INSULIN COVERAGE NEEDED.
--- NOTE | 2019-09-01 07:14 | NUR ---
GAVE REPORT TO DAYSHIFT NURSE, FOR CONTINUITY OF CARE. PT IS IN STABLE CONDITION.
--- NOTE | 2019-09-01 07:15 | NUR ---
RECEIVED REPORT FROM PRODUCTION SUPERVISOR TRAINEE NURSE REGARDING PATIENT CONDITION AND PLAN OF CARE. PATIENT CURRENTLY RESTING IN BED, ASLEEP, CURRENTLY ON BIPAP AT FiO2 at 80% WITH SATURATION 94%, IN NO S/S RESPIRATORY DISTRESS. IN NO APPEARANCE OF PAIN AT THIS TIME. HEART RATE CURRENTLY 91 BPM. ALL NEEDS MET, CALL LIGHT WITHIN REACH, WILL CONTINUE TO MONITOR. DROPLET PRECAUTIONS FOLLOWED.
[2019-09-01 07:21] LABS: ALBUMIN 2.9 g/dL (3.4-5.0); ANION GAP 12.8 (8-16); CARBON DIOXIDE 30.8 mmol/L (21-32); CREATININE 0.5 mg/dL (0.6-1.3); MAGNESIUM 2.1 mg/dL (1.8-2.4); PHOSPHORUS 3.8 mg/dL (2.5-4.9); POTASSIUM 3.6 mmol/L (3.5-5.1); TOTAL BILIRUBIN 0.4 mg/dL (0.0-1.0)
[2019-09-01] MEDS: ALBUTEROL SULFATE/IPRATROPIU 3 ML SOL IH SCH ×3 (07:21→20:00)
--- NOTE | 2019-09-01 07:21 | NUR ---
PT REMAIN ON DOCUMENTED BIPAP SETTINGS, TX GIVEN INLINE, NO DISTRESS NOTED, BIPAP PLUGGED INTO RED OUTLET, ALARMS ON AND FUNCTIONING, WILL CONTINUE TO MONITOR
[2019-09-01 08:00] VITALS: BP 133/76
[2019-09-01] MEDS: VITAMIN D 400 IU TAB PO SCH (09:02)
[2019-09-01] MEDS: ASCORBIC ACID 500 MG TAB PO SCH (09:03)
[2019-09-01] MEDS: ZINC SULF 220 MG CAP PO SCH ×2 (09:03→22:09)
[2019-09-01] MEDS: LACTOBACILLUS RHAMNOSUS GG 1 EACH CAP PO SCH (09:03)
[2019-09-01] MEDS: ENOXAPARIN 100 MG/ML SYR SUBQ SCH (09:06)
[2019-09-01] MEDS: guaiFENesin 600 MG TABER PO SCH ×2 (09:09→22:09)
--- NOTE | 2019-09-01 09:09 | NUR ---
MEDICATIONS EXPLAINED AND GIVEN TO PATIENT WITH [employer] MARKETING MANAGER VIA PHONE. UPDATED PATIENT ON PLAN OF CARE [facility], VERBALIZED UNDERSTANDING. PATIENT CURRENTLY ON BIPAP, SATURATION 94%, BP 133/76, HR 91. PATIENT TOOK MEDS CRUSHED AND WITH WATER, TOLERATED WELL. NO COMPLAINTS OF PAIN AT THIS TIME. ALL NEEDS MET, CALL LIGHT WITHIN REACH, WILL CONTINUE WITH PLAN OF CARE. DROPLET PRECAUTIONS FOLLOWED.
[2019-09-01 12:00] VITALS: BP 117/72
[2019-09-01] MEDS: INSULIN LISPRO SLIDING SCALE 100 UNITS/ML VIAL SUBQ PRN (12:19)
--- NOTE | 2019-09-01 12:31 | NUR ---
BLOOD GLUCOSE CHECKED TO BE 161, 2 UNITS OF HUMALOG INSULIN GIVEN. NO ADVERSE SIDE EFFECTS NOTED.
--- NOTE | 2019-09-01 12:36 | NUR ---
RT BY BEDSIDE, STATES HE PUT PATIENT TO 70% FIO2, PATIENT TOLERATED WELL, SATURATION 92%.
[2019-09-01] MEDS: NACL 0.9% 1,000 ML IV SCH (13:16)
[2019-09-01 16:00] VITALS: BP 117/74
--- NOTE | 2019-09-01 16:00 | NUR ---
BLOOD SUGARS CHECKED TO BE 120, NO INSULIN COVERAGE NEEDED AT THIS TIME. PATIENT SATURATION 92% HR 102, STABLE, IN NO S/S ACUTE RESPIRATORY DISTRESS. NO C/O OF PAIN AT THIS TIME. ALL NEEDS MET, CALL LIGHT WITHIN REACH, WILL CONTINUE TO MONITOR.
--- NOTE | 2019-09-01 16:22 | NUR ---
PT REMAINS ON DOCUMENTED BIPAP SETTINGS, NO DISTRESS NOTED AT THIS TIME. PT CONTINUES TO TOLERATE FIO2 CHANGE. BIPAP PLUGGED INTO RED OUTLET, ALARMS ON AND FUNCTIONING.
--- NOTE | 2019-09-01 19:15 | NUR ---
REPORT GIVEN TO PRESIDENT AND CMO NURSE REGARDING PATIENT CONDITION AND PLAN OF CARE. PATIENT IS RESTING IN BED, CURRENTLY ON BIPAP AT 70% FIO2, STABILIZED, WITH ALL NEEDS MET, CALL LIGHT WITHIN REACH.
--- NOTE | 2019-09-01 19:16 | NUR ---
RECEIVED BEDSIDE ENDORSEMENT FROM AM SHIFT RN. AOX3. ON BIPAP AT 70% FIO2. O2 SAT WNL. NO SOB. DROPLET PRECAUTION OBSERVED. FALL RISK PROTOCOL IN PLACE. PLAN OF CARE WAS DISCUSSED. CALL LIGHT WITHIN REACH.
[2019-09-01 20:00] VITALS: BP 108/65
--- NOTE | 2019-09-01 20:00 | NUR ---
RECVD PT FROM DAY SHIFT ON DOCUMENTED SETTINGS. BIPAP PLUGGED INTO RED OUTLET. BMV AT BEDSIDE. MASK SECURED. ALARMS SET. TX GIVEN. WILL CONT TO MONITOR.
--- NOTE | 2019-09-01 21:00 | NUR ---
DUE MEDS GIVEN ORDERED. TOLERATED WELL. MED EDUCATION PROVIDED. WILL CONTINUE TO MONITOR.
[2019-09-02] VITALS: BP 123/78
--- NOTE | 2019-09-02 00:10 | NUR ---
V/S TAKEN AND RECORDED.
--- NOTE | 2019-09-02 04:00 | NUR ---
V/S TAKEN. RESPIRATION EVEN AND UNLABORED.
[2019-09-02 04:57] VITALS: BP 110/69
[2019-09-02] MEDS: BLOOD GLUCOSE MONITORING 1 DEV DEV FS SCH ×4 (05:42→21:16)
[2019-09-02 07:04] LABS: BASOPHILS # (AUTO) 0.1 K/uL (0.00-0.22); BASOPHILS % (AUTO) 0.9 % (0.0-2.0); EOSINOPHILS # (AUTO) 0.7 K/uL (0-0.4); EOSINOPHILS % (AUTO) 7.7 % (0.0-4.0); HEMATOCRIT 40.2 % (36-48); HEMOGLOBIN 13.1 g/dL (12.0-16.0); LYMPHOCYTES # (AUTO) 0.9 K/uL (2.5-16.5); MEAN CORPUSCULAR HEMOGLOBIN 29 pg (27-31); MEAN CORPUSCULAR HGB CONC 33 g/dL (33-37); MEAN CORPUSCULAR VOLUME 88.8 fL (80-94); MONOCYTES # (AUTO) 0.5 K/uL (0.8-1.0); MONOCYTES % (AUTO) 5.9 % (1.7-9.3); NEUTROPHILS # (AUTO) 6.9 K/uL (1.8-7.7); NEUTROPHILS % (AUTO) 75.5 % (42.2-75.2); PLATELET COUNT (AUTO) 304 K/uL (140-450); RED BLOOD CELL COUNT(AUTO) 4.53 MIL/uL (4.20-5.40); RED CELL DISTRIBUTION WIDTH 14.6 % (11.6-13.7); WHITE BLOOD COUNT (AUTO) 9.2 K/uL (4.8-10.8)
--- NOTE | 2019-09-02 07:10 | NUR ---
PATIENT IS IN STABLE CONDITION. NO SOB. ENDORSED AT BEDSIDE TO LEROY BLANKENSHIP FOR CONTINUITY OF CARE.
--- NOTE | 2019-09-02 07:10 | NUR ---
RECEIVED REPORT ON PATIENT CONDITION AND PLAN OF CARE. PATIENT IS CURRENTLY STABILIZED, RESTING COMFORTABLY IN BED, ASLEEP BUT EASILY AROUSABLE. CURRENTLY ON BIPAP, IN NO S/S RESPIRATORY DISTRESS, NO C/O OF PAIN AT THIS TIME. ALL NEEDS MET, CALL LIGHT WITHIN REACH, WILL CONTINUE TO MONITOR.
[2019-09-02] MEDS: ALBUTEROL SULFATE/IPRATROPIU 3 ML SOL IH SCH ×3 (07:32→20:01)
[2019-09-02 07:55] LABS: ANION GAP 8.7 (8-16); CARBON DIOXIDE 32.8 mmol/L (21-32); CREATININE 0.7 mg/dL (0.6-1.3); MAGNESIUM 2.1 mg/dL (1.8-2.4); PHOSPHORUS 3.8 mg/dL (2.5-4.9); POTASSIUM 3.5 mmol/L (3.5-5.1); TOTAL BILIRUBIN 0.5 mg/dL (0.0-1.0)
[2019-09-02 08:00] VITALS: BP 139/76
[2019-09-02] MEDS: VITAMIN D 400 IU TAB PO SCH (09:28)
[2019-09-02] MEDS: LACTOBACILLUS RHAMNOSUS GG 1 EACH CAP PO SCH (09:28)
[2019-09-02] MEDS: guaiFENesin 600 MG TABER PO SCH ×2 (09:29→21:16)
--- NOTE | 2019-09-02 09:29 | NUR ---
PATIENT HAD LARGE BOWEL MOVEMENT, BROWN AND SOFT, PATIENT CLEAN CHANGED AND REPOSITIONED, LINEN CHANGE DONE. PATIENT TOLERATED WELL. MEDICATIONS CRUSHED AND GIVEN TO PATIENT VIA WATER PER PATIENT PREFERENCE. ACCORDING TO PHARMACIST CHAD, IT IS OKAY TO CRUSH MUCINEX TABLET SINCE NO LIQUID VERSION IS AVAILABLE. PATIENT LAC IV SITE REMOVED BECAUSE DRESSING IS EXTREMELY SOILED, WITH BLOOD SURROUNDING SITE AND INABILITY TO FLUSH. REMOVED LAC IV SITE, CATHETER SITE INTACT. CLEANED LEFT ANTECUBITAL AREA. PATIENT STABLE, RESTING IN BED, ON BIPAP SATURATION 94%, NO S/S ACUTE RESPIRATORY DISTRESS. NO COMPLAINTS OF PAIN AT THIS TIME. NO CYANOSIS OR EDEMA NOTED, CAP REFILL <3 SECONDS. ALL NEEDS MET, CALL LIGHT WITHIN REACH, WILL CONTINUE TO MONITOR. Addendum: 09/02/19 at 1007 by Jeffrey Workman RN LOVENOX ALSO GIVEN, PLATELET WAS [id number].
[2019-09-02] MEDS: ENOXAPARIN 100 MG/ML SYR SUBQ SCH (09:30)
[2019-09-02] MEDS: ZINC SULF 220 MG CAP PO SCH ×2 (09:30→21:16)
--- NOTE | 2019-09-02 11:30 | NUR ---
PT BLOOD GLUCOSE CHECKED TO BE 144, NO INSULIN COVERAGE NEEDED AT THIS TIME. PATIENT CURRENTLY RESTING IN BED, IN NO S/S RESPIRATORY DISTRESS. PATIENT CURRENTLY ON BIPAP 70% FIO2 , SATURATION AT 91%. ALL NEEDS MET, CALL LIGHT WITHIN REACH, WILL CONTINUE TO MONITOR. DROPLET PRECAUTIONS FOLLOWED.
[2019-09-02 12:00] VITALS: BP 111/78
[2019-09-02] MEDS: ASCORBIC ACID 500 MG TAB PO SCH (13:00)
[2019-09-02] MEDS: NACL 0.9% 1,000 ML IV SCH (13:10)
--- NOTE | 2019-09-02 13:30 | NUR ---
ROUNDED ON PATIENT, PATIENT RESTING COMFORTABLY IN BED, IN NO ACUTE S/S RESPIRATORY DISTRESS, NO C/O OF PAIN AT THIS TIME. PATIENT IS CURRENTLY SITTING UP IN BED, ON CELLPHONE. CURRENTLY ON BIPAP FIO2 AT 80%, O2 SATURATION AT 94%, HEART RATE IS 120 BPM. ALL NEEDS MET, CALL LIGHT WITHIN REACH, WILL CONTINUE TO MONITOR. DROPLET PRECAUTIONS FOLLOWED.
--- NOTE | 2019-09-02 14:02 | NUR ---
FIO2 TITRATED TO 60%. WILL CONTINUE TO MONITOR.
--- NOTE | 2019-09-02 15:30 | NUR ---
PATIENT STILL RESTING IN BED, IN NO ACUTE S/S RESPIRATORY DISTRESS. BIPAP HAS BEEN TITRATED TO 60% FIO2, OXYGEN SATURATION IS CURRENTLY 94%, HEART RATE 121. PATIENT IS NOT CYANOTIC, NO INTERCOSTAL MUSCLES USE VISUALIZED. ALL NEEDS MET, CALL LIGHT WITHIN REACH. WILL CONTINUE TO MONITOR.
[2019-09-02 16:00] VITALS: BP 128/76
--- NOTE | 2019-09-02 16:10 | NUR ---
PATIENT VITAL SIGNS STABLE, ASSISTED PATIENT TO BEDPAN. PATIENT STARTED TO DESAT TO 75%, RESPIRATORY PAGED AND MADE AWARE. STAYED WITH PATIENT UNTIL PATIENT IS NOW 90%. ACCORDING TO RESPIRATORY THERAPIST, SINCE HER LUNGS ARE FAILING ANYTHING ABOUT 86% IS OKAY AND EXPECTED. NOTED AND WILL ENDORSE TO NEXT SHIFTS. ALL NEEDS MET, CALL LIGHT WITHIN REACH, WILL CONTINUE TO MONITOR. DROPLET PRECAUTIONS FOLLOWED.
--- NOTE | 2019-09-02 18:00 | NUR ---
PATIENT IS STABILIZED, RESTING COMFORTABLY IN BED, IN NO S/S RESPIRATORY DISTRESS. CURRENTLY ON BIPAP WITH FIO2 60%, SATURATION 91%. NO COMPLAINTS OF PAIN AT THIS TIME. ALL NEEDS MET, CALL LIGHT WITHIN REACH, WILL CONTINUE TO MONITOR.
--- NOTE | 2019-09-02 19:10 | NUR ---
REPORT GIVEN TO PREP COOK NURSE REGARDING PATIENT STATUS AND PLAN OF CARE. PATIENT IS STABILIZED, RESTING COMFORTABLY IN BED, IN NO S/S RESPIRATORY DISTRESS. CURRENTLY ON BIPAP WITH FIO2 60%, SATURATION 90%. NO COMPLAINTS OF PAIN AT THIS TIME. ALL NEEDS MET, CALL LIGHT WITHIN REACH, WILL CONTINUE TO MONITOR.
--- NOTE | 2019-09-02 19:12 | NUR ---
RECEIVED PATIENT IN STABLE CONDITION FROM AM SHIFT NURSE FOR CONTINUITY OF CARE. RESPIRATIONS EVEN, UNLABORED. CONTINUES ON BIPAP AT 60%. NO C/O PAIN. NO S/S ACUTE DISTRESS. SKIN WARM, DRY. IV SITE TO RIGHT AC 20G PATENT/INTACT. CONTINENT OF B/B. PLAN OF CARE DISCUSSED WITH PATIENT. CALL LIGHT WITHIN REACH. ISOLATION PRECAUTIONS OBSERVED BY ALL STAFF. Addendum: 09/02/19 at 5187 by Hellen Blum RN RIGHT AC IS AN 18G AND NOT A 20G.
[2019-09-02 20:00] VITALS: BP 126/78
--- NOTE | 2019-09-02 20:19 | NUR ---
RECVD PT FROM DAY SHIFT ON DOCUMENTED SETTINGS. BIPAP PLUGGED INTO RED OUTLET. BMV AT BEDSIDE. MASK SECURED. ALARMS SET. UNABLE TO ADMINISTER TX GIVEN. WILL CONT TO MONITOR
[2019-09-02] MEDS: INSULIN LISPRO SLIDING SCALE 100 UNITS/ML VIAL SUBQ PRN (21:09)
--- NOTE | 2019-09-02 21:16 | NUR ---
PULLED OUT GUAIFENESIN AND ZINC FROM OMNICELL AGAIN BECAUSE PATIENT KNOCKED OVER MEDICINE CUP AND MEDICATION FELL ON FLOOR. PATIENT ALSO ACCIDENTLY PULLED OUT IV. REPLACED WITH NEW SITE RIGHT AC 22G USING ASEPTIC TECHNIQUE. GOOD BLOOD RETURN. NO DISTRESS FROM PATIENT. IV FLUIDS RESTARTED AND INFUSING WELL.
--- NOTE | 2019-09-02 23:00 | NUR ---
PATIENT IS ASLEEP WITH BIPAP IN PLACE. 02SAT 92%. NO S/S ACUTE DISTRESS. CALL LIGHT WITHIN REACH. SAFETY PRECAUTIONS IN PLACE. ISOLATION PRECAUTIONS OBSERVED BY ALL STAFF.
[2019-09-03] VITALS: BP 118/72
--- NOTE | 2019-09-03 01:54 | NUR ---
MADE ROUNDS. PATIENT IS ASLEEP. NO S/S ACUTE DISTRESS. CALL LIGHT WITHIN REACH. SAFETY PRECAUTIONS IN PLACE. ISOLATION PRECAUTIONS OBSERVED BY ALL STAFF.
--- NOTE | 2019-09-03 03:00 | NUR ---
PATIENT IS ASLEEP. NO S/S ACUTE DISTRESS. NO S/S RESPIRATORY DISTRESS. CONTINUES ON BIPAP. O2SAT 92%. CALL LIGHT WITHIN REACH. SAFETY PRECAUTIONS IN PLACE. ISOLATION PRECAUTIONS OBSERVED BY ALL STAFF.
[2019-09-03 04:00] VITALS: BP 119/78
--- NOTE | 2019-09-03 05:00 | NUR ---
PATIENT IN STABLE CONDITION. NO C/O PAIN. NO S/S ACUTE DISTRESS. NO S/S RESPIRATORY DISTRESS. CONTINUES ON BIPAP WITH AN O2SAT OF 91%. CALL LIGHT WITHIN REACH. SAFETY PRECAUTIONS IN PLACE. ISOLATION PRECAUTIONS OBSERVED BY ALL STAFF.
[2019-09-03] MEDS: BLOOD GLUCOSE MONITORING 1 DEV DEV FS SCH ×4 (06:31→21:15)
[2019-09-03 06:41] LABS: BASOPHILS # (AUTO) 0.1 K/uL (0.00-0.22); BASOPHILS % (AUTO) 1.3 % (0.0-2.0); EOSINOPHILS # (AUTO) 0.6 K/uL (0-0.4); EOSINOPHILS % (AUTO) 7.3 % (0.0-4.0); HEMATOCRIT 39.9 % (36-48); HEMOGLOBIN 13.1 g/dL (12.0-16.0); LYMPHOCYTES # (AUTO) 0.8 K/uL (2.5-16.5); LYMPHOCYTES % (AUTO) 9.9 % (20.5-51.1); MEAN CORPUSCULAR HEMOGLOBIN 29 pg (27-31); MEAN CORPUSCULAR HGB CONC 33 g/dL (33-37); MEAN CORPUSCULAR VOLUME 89.1 fL (80-94); MONOCYTES # (AUTO) 0.6 K/uL (0.8-1.0); MONOCYTES % (AUTO) 7.8 % (1.7-9.3); NEUTROPHILS # (AUTO) 5.9 K/uL (1.8-7.7); NEUTROPHILS % (AUTO) 73.7 % (42.2-75.2); PLATELET COUNT (AUTO) 272 K/uL (140-450); RED BLOOD CELL COUNT(AUTO) 4.48 MIL/uL (4.20-5.40); RED CELL DISTRIBUTION WIDTH 14.4 % (11.6-13.7)
[2019-09-03] MEDS: ALBUTEROL SULFATE/IPRATROPIU 3 ML SOL IH SCH ×3 (07:34→18:38)
[2019-09-03 07:41] LABS: ALBUMIN 2.9 g/dL (3.4-5.0); ANION GAP 13.9 (8-16); CARBON DIOXIDE 28.9 mmol/L (21-32); CREATININE 0.6 mg/dL (0.6-1.3); MAGNESIUM 2.2 mg/dL (1.8-2.4); PHOSPHORUS 3.8 mg/dL (2.5-4.9); POTASSIUM 3.8 mmol/L (3.5-5.1); TOTAL BILIRUBIN 0.5 mg/dL (0.0-1.0)
--- NOTE | 2019-09-03 07:48 | NUR ---
RECEIVED REPORT FROM NOC SHIFT. PT SEEN AND ASSESSED. PT IS ON BiPAP SETTINGS IPAP 14, EPAP 10, BACK UP RATE 14, FiO2 60% WITH SPO2 OF 91%. AUSCULTATION REVEALS BILATERAL RALES BREATH SOUNDS. PT IN NO APPARENT RESPIRATORY DISTRESS AT THIS TIME. HHN TX GIVEN VIA INLINE AND PT TOLERATED WELL WITH NO ADVERSE REACTION. WILL CONTINUE TO MONITOR PT.
--- NOTE | 2019-09-03 07:50 | NUR ---
PATIENT AWAKE AND RESTING QUIETLY IN BED. TELE PATIENT. RESPIRATIONS EVEN, UNLABORED. CONTINUES ON BIPAP FIO2 60%, O2SAT 92%. NO C/O PAIN. NO S/S ACUTE DISTRESS. SKIN WARM, DRY. IV SITE TO RIGHT AC 22G PATENT/INTACT. PLAN OF CARE DISCUSSED WITH PATIENT. CALL LIGHT WITHIN REACH. SAFETY PRECAUTIONS IN PLACE. ISOLATION PRECAUTIONS OBSERVED BY ALL STAFF.
[2019-09-03] MEDS ORDERED: FUROSEMIDE 20 MG/2 ML VIAL IVP SCH (09:00)
[2019-09-03] MEDS: methylPREDNISolone SS 40 MG/ML VIAL IVP SCH ×2 (09:01→20:05)
[2019-09-03] MEDS: ZINC SULF 220 MG CAP PO SCH ×2 (09:02→20:05)
[2019-09-03] MEDS: VITAMIN D 400 IU TAB PO SCH (09:02)
[2019-09-03] MEDS: guaiFENesin 600 MG TABER PO SCH ×2 (09:02→20:05)
[2019-09-03] MEDS: ASCORBIC ACID 500 MG TAB PO SCH (09:02)
[2019-09-03] MEDS: LACTOBACILLUS RHAMNOSUS GG 1 EACH CAP PO SCH (09:02)
[2019-09-03] MEDS: ENOXAPARIN 100 MG/ML SYR SUBQ SCH ×2 (09:03→20:06)
--- NOTE | 2019-09-03 09:25 | NUR ---
SCHEDULED MEDICATION WAS ADMINISTERED. EDUCATION GIVEN. PATIENT TOLERATED THE PROCEDURE WELL. PATIENT HAD 1 SMALL BM AND VOID WITH BEDPAN. PATIENT'S O2 SAT DROPPED TO 84% WHILE USING THE BEDPAN. O2 INCREASED TO 94% AFTER PATIENT LYING COMFORTABLY. CALL LIGHT IN REACH. WILL CONTINUE TO MONITOR.
[2019-09-03 10:20] VITALS: BP 135/86
[2019-09-03 12:16] VITALS: BP 109/75
--- NOTE | 2019-09-03 12:18 | NUR ---
ASSISTED PT IN USING URINAL, PATIENT A, ALERT, AWAKE, ON BIPAP O2 SAT 90
[2019-09-03] MEDS: NACL 0.9% 1,000 ML IV SCH (13:10)
--- NOTE | 2019-09-03 13:15 | NUR ---
PATIENT FINISHED EATING, STILL ON BIPAP, NO SOB NOTED, WATCHING TV, PATIENT ABLE TO EAT 60 PERCENT OF HER LUNCH
--- NOTE | 2019-09-03 14:34 | NUR ---
PATIENT SLEEPING IN BED COMFORTABLY, O2 SAT 91% WITH BIPAP 60%. NO ACUTE DISTRESS NOTED. CALL LIGHT IN REACH, WILL CONTINUE TO MONITOR.
[2019-09-03 16:00] VITALS: BP 135/84
[2019-09-03] MEDS: INSULIN LISPRO SLIDING SCALE 100 UNITS/ML VIAL SUBQ PRN ×2 (16:41→21:12)
--- NOTE | 2019-09-03 19:09 | NUR ---
ENDORSED STABLE PATIENT TO PEDIATRIC ANESTHESIOLOGIST NURSE FOR CONTINUITY OF CARE.
--- NOTE | 2019-09-03 19:10 | NUR ---
RECEIVED PATIENT IN STABLE CONDITION FROM AM SHIFT NURSE FOR CONTINUITY OF CARE. TELE PATIENT. PATIENT IS TACHYCARDIC WITH HR RANGING FROM 115-120 BPM. MD IS AWARE. RESPIRATIONS EVEN, UNLABORED. CONTINUES ON BIPAP AT 60% WITH O2SAT 92%. SKIN WARM, DRY. IV SITE TO RIGHT AC 22G PATENT/INTACT. NO C/O PAIN. NO S/S ACUTE DISTRESS. SAFETY PRECAUTIONS IN PLACE. ISOLATION PRECAUTIONS OBSERVED BY STAFF. PLAN OF CARE DISCUSSED WITH PATIENT. CALL LIGHT WITHIN REACH.
[2019-09-03 20:00] VITALS: BP 129/80
--- NOTE | 2019-09-03 21:53 | NUR ---
INCONTINENT CARE RENDERED WITH ENTERTAINER OR VARIETY ARTIST AT BEDSIDE. PER RT, BIPAP FIO2 IS AT 55%. O2SAT 90-93%. DUE MEDS GIVEN. NO S/S DISTRESS. NO C/O PAIN. CALL LIGHT WITHIN REACH. SAFETY PRECAUTIONS IN PLACE. ISOLATION PRECAUTIONS OBSERVED BY ALL STAFF.
--- NOTE | 2019-09-03 23:30 | NUR ---
MADE ROUNDS. PATIENT CONTINUES ON BIPAP FIO2 55% WITH O2SAT 93%. NO S/S ACUTE DISTRESS. PATIENT IS ASLEEP AT THIS TIME. CALL LIGHT WITHIN REACH. SAFETY PRECAUTIONS IN PLACE. ISOLATION PRECAUTIONS OBSERVED BY ALL STAFF.
[2019-09-04] VITALS: BP 116/72
--- NOTE | 2019-09-04 01:22 | NUR ---
PATIENT IS ASLEEP. NO S/S ACUTE DISTRESS. CALL LIGHT WITHIN REACH. SAFETY PRECAUTIONS IN PLACE. ISOLATION PRECAUTIONS OBSERVED BY ALL STAFF.
--- NOTE | 2019-09-04 03:04 | NUR ---
CONTINUES IN STABLE CONDITION. NO C/O PAIN. NO S/S ACUTE DISTRESS. O2SAT 93%. CALL LIGHT WITHIN REACH. SAFETY PRECAUTIONS IN PLACE. ISOLATION PRECAUTIONS OBSERVED BY ALL STAFF.
[2019-09-04 04:00] VITALS: BP 118/86
--- NOTE | 2019-09-04 05:22 | NUR ---
PATIENT SLEEPING AND IN STABLE CONDITION. CONTINUES ON BIPAP WITH O2SAT 94%. NO S/S ACUTE DISTRESS. CALL LIGHT WITHIN REACH. SAFETY PRECAUTIONS IN PLACE. ISOLATION PRECAUTIONS OBSERVED BY ALL STAFF.
[2019-09-04] MEDS: INSULIN LISPRO SLIDING SCALE 100 UNITS/ML VIAL SUBQ PRN ×4 (06:10→21:59)
[2019-09-04 07:03] LABS: BASOPHILS % (AUTO) 0.3 % (0.0-2.0); HEMATOCRIT 40.5 % (36-48); HEMOGLOBIN 13.3 g/dL (12.0-16.0); LYMPHOCYTES # (AUTO) 0.7 K/uL (2.5-16.5); LYMPHOCYTES % (AUTO) 7.8 % (20.5-51.1); MEAN CORPUSCULAR HEMOGLOBIN 29 pg (27-31); MEAN CORPUSCULAR HGB CONC 33 g/dL (33-37); MEAN CORPUSCULAR VOLUME 89.3 fL (80-94); MONOCYTES # (AUTO) 0.4 K/uL (0.8-1.0); NEUTROPHILS # (AUTO) 7.7 K/uL (1.8-7.7); NEUTROPHILS % (AUTO) 87.9 % (42.2-75.2); PLATELET COUNT (AUTO) 287 K/uL (140-450); RED BLOOD CELL COUNT(AUTO) 4.54 MIL/uL (4.20-5.40); RED CELL DISTRIBUTION WIDTH 14.6 % (11.6-13.7); WHITE BLOOD COUNT (AUTO) 8.7 K/uL (4.8-10.8)
[2019-09-04] MEDS: BLOOD GLUCOSE MONITORING 1 DEV DEV FS SCH ×4 (07:06→21:56)
--- NOTE | 2019-09-04 07:15 | NUR ---
RECEIVED REPORT FROM MOTOR VEHICLE ASSEMBLER NURSE. PT IN BED. AOX4, NO C/O PAIN, NO SOB, RESPIRATIONS ARE EVEN AND UNLABORED. ON BIPAP WITH 55% FIO2. SKIN IS INTACT. WITH IV ON RFA 20G ON TKO. SAFETY PRECAUTIONS IN PLACE. ISOLATION PRECAUTION OBSERVED. CALL LIGHT WITHIN REACH. WILL CONTINUE TO MONITOR
[2019-09-04] MEDS: ALBUTEROL SULFATE/IPRATROPIU 3 ML SOL IH SCH ×3 (07:34→19:00)
[2019-09-04 07:54] LABS: ALBUMIN 3.1 g/dL (3.4-5.0); ANION GAP 15.3 (8-16); CARBON DIOXIDE 27.7 mmol/L (21-32); CREATININE 0.6 mg/dL (0.6-1.3); MAGNESIUM 2.1 mg/dL (1.8-2.4); PHOSPHORUS 3.9 mg/dL (2.5-4.9); TOTAL BILIRUBIN 0.4 mg/dL (0.0-1.0)
[2019-09-04 08:00] VITALS: BP 124/80
[2019-09-04] MEDS: ENOXAPARIN 100 MG/ML SYR SUBQ SCH ×2 (09:00→20:30)
[2019-09-04] MEDS: ZINC SULF 220 MG CAP PO SCH ×2 (09:00→20:31)
[2019-09-04] MEDS: methylPREDNISolone SS 40 MG/ML VIAL IVP SCH ×2 (09:00→20:32)
[2019-09-04] MEDS: VITAMIN D 400 IU TAB PO SCH (09:00)
[2019-09-04] MEDS: ASCORBIC ACID 500 MG TAB PO SCH (09:00)
[2019-09-04] MEDS: guaiFENesin 600 MG TABER PO SCH ×2 (09:00→20:31)
[2019-09-04] MEDS: LACTOBACILLUS RHAMNOSUS GG 1 EACH CAP PO SCH (09:00)
--- NOTE | 2019-09-04 09:35 | NUR ---
DUE MORNING MEDS GIVEN. TOLERATED CRUSHED PO MEDS WELL
[2019-09-04 12:00] VITALS: BP 145/87
--- NOTE | 2019-09-04 12:20 | NUR ---
ASSISTED PT TO USE BEDPAN
--- NOTE | 2019-09-04 12:30 | NUR ---
BLOOD SUGAR 198. COVERAGE GIVEN
[2019-09-04] MEDS: NACL 0.9% 1,000 ML IV SCH (13:10)
--- NOTE | 2019-09-04 13:13 | NUR ---
PT HR 132. TX NOT GIVEN AT THIS TIME.
--- NOTE | 2019-09-04 13:33 | NUR ---
PT AWAKE IN BED. ON BIPAP. O2SAT 90%.NO C/O PAIN. RESPIRATIONS ARE EVEN AND UNLABORED
--- NOTE | 2019-09-04 14:06 | NUR ---
09/04/19 RD FOLLOW UP COMPLETED PLEASE REFER TO NUTRITION ASSESSMENT UNDER CARE ACTIVITY FOR ESTIMATED NUTRITIONAL NEEDS. 1. CONTINUE PUREE CCHO 60GM DIET TOLERATED 2. CONTINUE GLUCERNA TID 3. RD TO FOLLOW-UP 7 DAYS, LOW RISK AMBROCIO ALDRIDGE, RD
--- NOTE | 2019-09-04 15:40 | NUR ---
PT AWAKE IN BED. ON BIPAP WITH FIO2 55%, O2SAT 90%, NO C/O PAIN, NO C/O SOB
[2019-09-04 16:00] VITALS: BP 166/84
--- NOTE | 2019-09-04 17:30 | NUR ---
BLOOD SUGAR 199. COVERAGE GIVEN
--- NOTE | 2019-09-04 18:36 | NUR ---
WILL ENDORSE TO INSURANCE AND BENEFITS CLERK FOR CONTINUITY OF CARE. IN STABLE CONDITION
--- NOTE | 2019-09-04 19:10 | NUR ---
RECEIVED PT FROM DAY RN. ON TELE MONITOR. SINUS TACHYCARDIA. A0X4 ON BIPAP FIO2 55%. NO S/S RESPIRATORY DISTRESS. NO C/O PAIN AT THIS TIME. IV SITE ON R FA 20G, ASYMPTOMATIC, PATENT, INTACT, RUNNING NS AT 10 ML/HR. SKIN IS INTACT. SAFETY PRECAUTIONS IN PLACE. DROPLET PRECAUTION IN PLACE. CALL LIGHT WITHIN REACH. WILL CONTINUE TO MONITOR
[2019-09-04 20:00] VITALS: BP 128/81
--- NOTE | 2019-09-04 20:35 | NUR ---
ADMINISTERED SCHEDULED MEDICATION PER MD. MEDICATION EDUCATION GIVEN. PT VERBALIZED UNDERSTANDING. WILL CONTINUE TO MONITOR.
--- NOTE | 2019-09-04 22:00 | NUR ---
ADMINISTERED 2 UNITS INSULIN FOR BLOOD SUGAR 186. WILL CONTINUE TO MONITOR.
[2019-09-05] VITALS: BP 118/73
--- NOTE | 2019-09-05 00:15 | NUR ---
PT ASLEEP IN BED. NO S/S RESPIRATORY DISTRESS NOTED. O2 SAT 90%. WILL CONTINUE TO MONITOR.
--- NOTE | 2019-09-05 03:30 | NUR ---
PT RESTING IN BED. NO DISTRESS NOTED. WILL CONTINUE TO MONITOR.
[2019-09-05 04:00] VITALS: BP 125/79
--- NOTE | 2019-09-05 05:05 | NUR ---
PT AWAKE RESTING IN BED. NO DISTRESS NOTED. O2 SAT 91%. WILL CONTINUE TO MONITOR.
[2019-09-05 06:20] LABS: BASOPHILS % (AUTO) 0.3 % (0.0-2.0); EOSINOPHILS % (AUTO) 0.1 % (0.0-4.0); HEMATOCRIT 40.6 % (36-48); HEMOGLOBIN 13.2 g/dL (12.0-16.0); LYMPHOCYTES % (AUTO) 8.7 % (20.5-51.1); MEAN CORPUSCULAR HEMOGLOBIN 29 pg (27-31); MEAN CORPUSCULAR HGB CONC 33 g/dL (33-37); MEAN CORPUSCULAR VOLUME 88.9 fL (80-94); MONOCYTES # (AUTO) 0.7 K/uL (0.8-1.0); NEUTROPHILS # (AUTO) 9.6 K/uL (1.8-7.7); NEUTROPHILS % (AUTO) 84.9 % (42.2-75.2); PLATELET COUNT (AUTO) 313 K/uL (140-450); RED BLOOD CELL COUNT(AUTO) 4.57 MIL/uL (4.20-5.40); RED CELL DISTRIBUTION WIDTH 14.6 % (11.6-13.7); WHITE BLOOD COUNT (AUTO) 11.3 K/uL (4.8-10.8)
[2019-09-05] MEDS: BLOOD GLUCOSE MONITORING 1 DEV DEV FS SCH ×4 (07:00→21:22)
[2019-09-05] MEDS: INSULIN LISPRO SLIDING SCALE 100 UNITS/ML VIAL SUBQ PRN ×4 (07:02→21:26)
--- NOTE | 2019-09-05 07:05 | NUR ---
PT BLOOD SUGAR 153, ADMINISTERED 2 UNITS INSULIN.
--- NOTE | 2019-09-05 07:10 | NUR ---
ENDORSED PT IN STABLE CONDITION TO DAY RN FOR CONTINUITY OF CARE.
--- NOTE | 2019-09-05 07:15 | NUR ---
RECEIVED PT FROM ON BIPAP, PT IS AWAKE AND LYING ON THE BED WITH IV LINE RFA G. 22 WITH NS AT 10ML/HR INFUSING,, FIO2 AT 55% TIDAL VOLUME IS AT 513RATE IS 17, NO SIGN OF DISTRESS NOTED AND WILL MONITOR PT.
[2019-09-05 07:29] LABS: ALBUMIN 3.2 g/dL (3.4-5.0); CARBON DIOXIDE 29.7 mmol/L (21-32); CREATININE 0.8 mg/dL (0.6-1.3); MAGNESIUM 2.2 mg/dL (1.8-2.4); PHOSPHORUS 4.5 mg/dL (2.5-4.9); POTASSIUM 3.7 mmol/L (3.5-5.1); TOTAL BILIRUBIN 0.3 mg/dL (0.0-1.0)
[2019-09-05 08:00] VITALS: BP 124/81
[2019-09-05] MEDS: ALBUTEROL SULFATE/IPRATROPIU 3 ML SOL IH SCH ×3 (08:15→19:00)
--- NOTE | 2019-09-05 08:15 | NUR ---
RECEIVED PT ON BIPAP. SETTINGS 22/11, R 14, FIO2 TITRATED TO 50%. PT ASLEEP BUT WAKES UP WHEN SPOKEN TO. BIPAP IS PLUGGED INTO A RED OUTLET WITH ALARMS ON AND FUNCTIONING. WILL CONTINUE TO MONITOR.
[2019-09-05] MEDS: ENOXAPARIN 100 MG/ML SYR SUBQ SCH ×2 (09:54→21:06)
[2019-09-05] MEDS: ZINC SULF 220 MG CAP PO SCH ×2 (09:57→21:04)
[2019-09-05] MEDS: VITAMIN D 400 IU TAB PO SCH (09:57)
[2019-09-05] MEDS: methylPREDNISolone SS 40 MG/ML VIAL IVP SCH ×2 (09:58→21:03)
--- NOTE | 2019-09-05 09:58 | NUR ---
PT WAS GIVEN THE SCHEDULED AM MEDICATIONS NOW, CRUSHED AND TOLERATED, WILL MONITOR PT.
[2019-09-05] MEDS: LACTOBACILLUS RHAMNOSUS GG 1 EACH CAP PO SCH (09:59)
[2019-09-05] MEDS: guaiFENesin 600 MG TABER PO SCH ×2 (09:59→21:03)
[2019-09-05] MEDS: ASCORBIC ACID 500 MG TAB PO SCH (10:00)
--- NOTE | 2019-09-05 10:55 | NUR ---
PT PLACED ON HIGH FLOW NASAL CANNULA 25LPM FIO2 66%. PT NOT IN ANY DISTRESS. SPO2 AT THIS TIME 94%. / UPDATED WITH PT STATUS. WILL CONTINUE TO MONITOR.
[2019-09-05 12:00] VITALS: BP 116/61
--- NOTE | 2019-09-05 12:19 | NUR ---
PT WAS GIVEN INSULIN 2 UNITS FOR BLOOD GLUCOSE OF 165, WILL MONITOR PT.
[2019-09-05] MEDS: ACETYLCYSTEINE 10% (100 MG/ML) 100 MG/ML VIAL INH SCH ×2 (12:43→19:00)
--- NOTE | 2019-09-05 14:07 | NUR ---
PT REMAINS ON HIGH FLOW NC NOT IN ANY DISTRESS. SPO2 88% SPOKE TO PHYSICIAN TO KEEP SPO2 >=88%.
--- NOTE | 2019-09-05 14:15 | NUR ---
HIGH FLOW FIO2 INCREASED TO 75%. PT SPO2 91% AT THIS TIME.
[2019-09-05 16:00] VITALS: BP 108/71
[2019-09-05] MEDS: NACL 0.9% 1,000 ML IV SCH (17:01)
--- NOTE | 2019-09-05 17:07 | NUR ---
PT WAS GIVEN INSULIN 4 UNITS ON THE LEFT UA, FOR BLOOD GLUCOSE OF 209, WILL MONITOR PT.
--- NOTE | 2019-09-05 19:35 | NUR ---
RECEIVED PT FROM DAY RN. AWAKE IN BED WITH HIGH FLOW METER ON 73%, SATURATION 89%. NO S/S RESPIRATORY DISTRESS. DENIES PAIN. IV LINE RFA 22G. SAFETY MEASURES IN PLACE. WILL CONTINUE TO MONITOR.
--- NOTE | 2019-09-05 19:35 | NUR ---
ENDORSED PT TO INNERSOLE FITTER NURSEGENET FOR CONTINUITY OF CARE.
--- NOTE | 2019-09-05 19:51 | NUR ---
PATIENT RECEIVED ON HIGH FLOW NASAL CANNULA FIO2 75 PERCENT SPO2 85 HEART RATE 143. HEART RATE IS ELEVATED RN NOTIFIED. PATIENT NOT COMPLAINING OF ANY RESP DISTRESS OR PAIN AT THIS TIME. RT WILL MONITOR PATIENT DID NOT WANT TO WEAR BIPAP AT THIS TIME.
[2019-09-05 20:00] VITALS: BP 144/91
[2019-09-05] MEDS ORDERED: DILTIAZEM 25 MG/5 ML VIAL IVP SCH (20:05)
--- NOTE | 2019-09-05 20:30 | NUR ---
PT HR 143 TO 152. NOTIFIED . ORDERED STAT EKG, CARDIZEM IVP 10 MG. WILL ADMINISTER WHEN VERIFIED. PT DENIES SOB, DENIES PAIN AT THIS TIME. WILL CONTINUE TO MONITOR PT.
--- NOTE | 2019-09-05 21:10 | NUR ---
ADMINISTERED SCHEDULED MEDICATIONS PER MD. MEDICATION EDUCATION GIVEN. PT VERBALIZED UNDERSTANDING. WILL CONTINUE TO MONITOR.
--- NOTE | 2019-09-05 21:30 | NUR ---
PT BLOOD SUGAR 166. ADMINISTERED 2 UNITS. WILL CONTINUE TO MONITOR PT. Addendum: 09/06/19 at 0800 by Dwayne Neumann RN ADMINISTERED 2 UNITS INSULIN
--- NOTE | 2019-09-05 21:35 | NUR ---
PT HR IN THE 120S. WITHHELD CARDIZEM. NO DISTRESS NOTED ON PT. WILL CONTINUE TO MONITOR.
--- NOTE | 2019-09-05 23:40 | NUR ---
PT RESTING IN BED. RESPIRATIONS EVEN AND UNLABORED, O2 SAT 90%. WILL CONTINUE TO MONITOR.
[2019-09-06] VITALS: BP 122/72
--- NOTE | 2019-09-06 01:15 | NUR ---
PT ASLEEP IN BED. NO DISTRESS NOTED. HR 113, O2 SAT 91%. WILL CONTINUE TO MONITOR.
--- NOTE | 2019-09-06 03:50 | NUR ---
PT ASLEEP. NO S/S RESPIRATORY DISTRESS. HR 113, O2 SAT 90%. WILL CONTINUE TO MONITOR.
[2019-09-06 04:00] VITALS: BP 109/66
[2019-09-06 05:40] LABS: BASOPHILS % (AUTO) 0.4 % (0.0-2.0); EOSINOPHILS % (AUTO) 0.3 % (0.0-4.0); HEMATOCRIT 42.1 % (36-48); HEMOGLOBIN 13.7 g/dL (12.0-16.0); LYMPHOCYTES % (AUTO) 9.5 % (20.5-51.1); MEAN CORPUSCULAR HEMOGLOBIN 29 pg (27-31); MEAN CORPUSCULAR HGB CONC 33 g/dL (33-37); MEAN CORPUSCULAR VOLUME 88.8 fL (80-94); MONOCYTES # (AUTO) 0.7 K/uL (0.8-1.0); MONOCYTES % (AUTO) 6.9 % (1.7-9.3); NEUTROPHILS # (AUTO) 8.6 K/uL (1.8-7.7); NEUTROPHILS % (AUTO) 82.9 % (42.2-75.2); PLATELET COUNT (AUTO) 313 K/uL (140-450); RED BLOOD CELL COUNT(AUTO) 4.74 MIL/uL (4.20-5.40); RED CELL DISTRIBUTION WIDTH 14.7 % (11.6-13.7); WHITE BLOOD COUNT (AUTO) 10.3 K/uL (4.8-10.8)
[2019-09-06 06:25] LABS: ALBUMIN 3.3 g/dL (3.4-5.0); ANION GAP 13.7 (8-16); CREATININE 0.7 mg/dL (0.6-1.3); MAGNESIUM 2.1 mg/dL (1.8-2.4); PHOSPHORUS 4.9 mg/dL (2.5-4.9); POTASSIUM 3.7 mmol/L (3.5-5.1); TOTAL BILIRUBIN 0.4 mg/dL (0.0-1.0)
--- NOTE | 2019-09-06 06:45 | NUR ---
PT REMAINS ON HIGH FLOW AT THIS TIME WITH NO DISTRESS. SPO2 92% HR 99. DID NOT ADMIN AEROSOL TX DUE TO PT CURRENTLY BEING ON HIGH FLOW. WILL CONTINUE TO MONITOR.
[2019-09-06] MEDS: ACETYLCYSTEINE 10% (100 MG/ML) 100 MG/ML VIAL INH SCH ×3 (07:00→19:00)
[2019-09-06] MEDS: ALBUTEROL SULFATE/IPRATROPIU 3 ML SOL IH SCH ×3 (07:00→19:00)
[2019-09-06] MEDS: BLOOD GLUCOSE MONITORING 1 DEV DEV FS SCH ×4 (07:02→20:13)
--- NOTE | 2019-09-06 07:05 | NUR ---
PT BLOOD SUGAR 144. NO COVERAGE NEEDED
--- NOTE | 2019-09-06 07:20 | NUR ---
ENDORSED PT IN STABLE CONDITION TO DAY RN FOR CONTINUITY OF CARE
--- NOTE | 2019-09-06 07:31 | NUR ---
RECEIVED REPORT FROM INSTRUMENT ASSEMBLY SUPERVISOR RN FOR CONTINUITY OF CARE. PT IS AAOX4, COOPERATIVE AND ABLE TO MAKE NEEDS KNOWN. PT IS SWEDISH SPEAKING. PT ON HIGH FLOW METER AT 73% SATING 89-91%. PT SKIN INTACT. IV ON THE RIGHT FA 22G INFUSING NS @ 10ML/HR. DISCUSSED POC WITH PT AND PT VERBALIZED UNDERSTANDING. ALL NEEDS CURRENTLY MET. ALL SAFETY MEASURES IN PLACE. BED IN LOW POSITION, CALL LIGHT WITHIN REACH. WILL ROUND FREQUENTLY ON PT THROUGHOUT THE SHIFT.
[2019-09-06 08:00] VITALS: BP 117/73
[2019-09-06] MEDS: ASCORBIC ACID 500 MG TAB PO SCH (09:00)
[2019-09-06] MEDS: VITAMIN D 400 IU TAB PO SCH (09:00)
[2019-09-06] MEDS: LACTOBACILLUS RHAMNOSUS GG 1 EACH CAP PO SCH (09:00)
[2019-09-06] MEDS: guaiFENesin 600 MG TABER PO SCH ×2 (09:00→20:13)
[2019-09-06] MEDS: ZINC SULF 220 MG CAP PO SCH ×2 (09:00→20:13)
[2019-09-06] MEDS: ENOXAPARIN 100 MG/ML SYR SUBQ SCH ×2 (09:00→20:13)
[2019-09-06] MEDS: methylPREDNISolone SS 40 MG/ML VIAL IVP SCH ×2 (09:00→20:12)
--- NOTE | 2019-09-06 09:42 | NUR ---
ADMINISTERED MORNING MEDS TO PT. PT TOLERATED WELL. ALL NEEDS CURRENTLY MET. WILL CONTINUE TO ROUND FREQUENTLY ON PT.
--- NOTE | 2019-09-06 10:16 | NUR ---
PT HAD BOWEL MOVEMENT. UPON CLEANING HER, PT DESATED TO 74%. RT WAS CLOSEBY AND DECIDED TO PLACE PT BACK ON BIPAP. PT SATING 91-92% NOW ON BIPAP.
--- NOTE | 2019-09-06 11:15 | NUR ---
PLACED PT ON BIPAP AT THIS TIME DUE TO DESATURATION WITH HIGH FLOW. PT SHOWS NO SIGN OF DISTRESS. BIPAP PLUGGED INTO RED OUTLET, ALARMS ON AND FUNCTIONING, WILL CONTINUE TO MONITOR.
--- NOTE | 2019-09-06 11:49 | NUR ---
PT RESTING IN BED. O2 SAT @ 91% ON BIPAP. NO SIGNS OF DISTRESS AT THIS TIME. WILL CONTINUE TO ORUND FREQUENTLY ON PT.
[2019-09-06 12:00] VITALS: BP 119/81
[2019-09-06] MEDS: INSULIN LISPRO SLIDING SCALE 100 UNITS/ML VIAL SUBQ PRN ×3 (12:17→20:14)
--- NOTE | 2019-09-06 12:45 | NUR ---
UNABLE TO ADMIN MUCOMYST, UNABLE TO PULL MED FROM PIXIS
[2019-09-06] MEDS: NACL 0.9% 1,000 ML IV SCH (13:10)
--- NOTE | 2019-09-06 13:14 | NUR ---
PT ON HER PHONE. ALL NEEDS MET. WILL CONTINUE TO ROUND FREQUENTLY ON PT.
--- NOTE | 2019-09-06 15:53 | NUR ---
PT RESTING IN BED. ALL NEEDS CURRENTLY MET. WILL CONTINUE TO ROUND FREQUENTLY ON PT.
[2019-09-06 16:00] VITALS: BP 114/81
--- NOTE | 2019-09-06 16:51 | NUR ---
PT REMAIN ON DOCUMENTED BIPAP SETTINGS, PT TOLERATING AND NO DISTRESS NOTED. BIPAP PLUGGED INTO RED OUTLET, ALARMS ON AND FUNCTIONING.
--- NOTE | 2019-09-06 17:31 | NUR ---
PT ASLEEP. ALL NEEDS MET.
--- NOTE | 2019-09-06 18:53 | NUR ---
WILL ENDORSE PT TO CLINICAL ORTHOPTIST FOR CONTINUITY OF CARE. PT IN STABLE CONDITION AT THIS TIME.
--- NOTE | 2019-09-06 19:15 | NUR ---
RECEIVED BEDSIDE REPORT FROM DAY RN MEGAN, PT IS AAOX4. RESPIRATIONS ARE EQUAL AND UNLABORED ON BIPAP. SAT 93% SINUS TACHY 115. LUNG SOUNDS ARE DIMINISHED. SKIN IS INTACT. PT ON BEDREST. ABLE TO MAKE NEEDS KNOWN. COVID + ISOLATION PER PROCOL SIGN AT DOOR. IV ON RFA 22G TKO. POC DISCUSSED WITH PT. CALL LIGHT IS WITHIN REACH. WILL CONTINUE TO MONITOR.
[2019-09-06 20:00] VITALS: BP 112/80
--- NOTE | 2019-09-06 20:12 | NUR ---
VSS. MADELIN MEDICATION GIVEN. BG 180 ADMINISTERED INSULIN PER SLIDING SCALE. MED EDUCATION GIVEN. PT VERBALIZED UNDERSTANDING. POC DISCUSSED WITH PT. ASSISTED PT WITH BEDPAN. ALL NEEDS MET. CALL LIGHT IS WITHIN REACH. WILL ROUND FREQUENTLY.
--- NOTE | 2019-09-06 22:10 | NUR ---
PT IS SLEEPING COMFORTABLY IN BED WITH EYES CLOSED. CHEST RISE AND FALL NOTED. CALL LIGHT IS WITHIN REACH.
[2019-09-07] VITALS (7 sets, daily range): BP systolic 80–119; BP diastolic 67–77
--- NOTE | 2019-09-07 | NUR ---
VITAL SIGNS ARE WITHIN NORMAL LIMITS. ASSISTED PT WITH BEDPAN. ALL NEEDS MET. CALL LIGHT IS WITHIN REACH. WILL CONTINUE TO MONITOR.
--- NOTE | 2019-09-07 01:52 | NUR ---
PT IS SLEEPING COMFORTABLY IN BED WITH EYES CLOSED. CHEST RISE AND FALL NOTED. CALL LIGHT IS WITHIN REACH. WILL CONTINUE TO MONITOR.
--- NOTE | 2019-09-07 04:00 | NUR ---
VITAL SIGNS ARE WITHIN NORMAL LIMITS. ASSISTED PT WITH BEDPAN. ALL NEEDS MET. CALL LIGHT IS WITHIN REACH. WILL CONTINUE TO MONITOR.
[2019-09-07 06:20] LABS: BASOPHILS % (AUTO) 0.2 % (0.0-2.0); EOSINOPHILS % (AUTO) 0.3 % (0.0-4.0); LYMPHOCYTES # (AUTO) 1.2 K/uL (2.5-16.5); LYMPHOCYTES % (AUTO) 12.2 % (20.5-51.1); MEAN CORPUSCULAR HEMOGLOBIN 29 pg (27-31); MEAN CORPUSCULAR HGB CONC 33 g/dL (33-37); MEAN CORPUSCULAR VOLUME 89.2 fL (80-94); MONOCYTES # (AUTO) 0.7 K/uL (0.8-1.0); MONOCYTES % (AUTO) 7.6 % (1.7-9.3); NEUTROPHILS # (AUTO) 7.6 K/uL (1.8-7.7); NEUTROPHILS % (AUTO) 79.7 % (42.2-75.2); PLATELET COUNT (AUTO) 313 K/uL (140-450); RED BLOOD CELL COUNT(AUTO) 4.82 MIL/uL (4.20-5.40); RED CELL DISTRIBUTION WIDTH 14.7 % (11.6-13.7); WHITE BLOOD COUNT (AUTO) 9.5 K/uL (4.8-10.8)
[2019-09-07] MEDS: BLOOD GLUCOSE MONITORING 1 DEV DEV FS SCH ×4 (06:33→20:44)
--- NOTE | 2019-09-07 06:33 | NUR ---
BG 154 ADMINISTERED INSULIN PER SLIDING SCALE PT TOLERATED WELL. CALL LIGHT IS WITHIN REACH.
[2019-09-07] MEDS: INSULIN LISPRO SLIDING SCALE 100 UNITS/ML VIAL SUBQ PRN ×4 (06:37→20:45)
[2019-09-07 07:04] LABS: ALBUMIN 3.4 g/dL (3.4-5.0); CARBON DIOXIDE 30.9 mmol/L (21-32); CREATININE 0.8 mg/dL (0.6-1.3); MAGNESIUM 2.3 mg/dL (1.8-2.4); PHOSPHORUS 5.4 mg/dL (2.5-4.9); POTASSIUM 3.9 mmol/L (3.5-5.1); TOTAL BILIRUBIN 0.4 mg/dL (0.0-1.0)
[2019-09-07] MEDS: ACETYLCYSTEINE 10% (100 MG/ML) 100 MG/ML VIAL INH SCH ×3 (07:13→20:12)
[2019-09-07] MEDS: ALBUTEROL SULFATE/IPRATROPIU 3 ML SOL IH SCH ×3 (07:13→20:11)
--- NOTE | 2019-09-07 07:13 | NUR ---
rec'd pt on garcia v60 bipap settings 14/10 rr14 fio2 50% alarms on and audible and bvm at hob and bipap is plugged into red outlet, i\l tx given with duoneb 3ml and mucomyst 10% 1ml with no adverse reaction post tx b\s are clear bilaterally, pt is sleeping
--- NOTE | 2019-09-07 07:20 | NUR ---
GAVE BEDSIDE REPORT TO DAY RN. PT ENDORSED IN STABLE CONDITION.
--- NOTE | 2019-09-07 07:25 | NUR ---
RECEIVED REPORT FROM NIGHTSHIFT NURSE. PT RESTING IN BED. ABLE TO MAKE NEEDS KNOWN. RESPIRATIONS EVEN AND UNLABORED WITH NO SOB OR RESPIRATORY DISTRESS. SKIN WARM AND DRY TO TOUCH. IV SITE IN RFA 22G IS CLEAN, DRY, AND INTACT. SAFETY MEASURES IN PLACE. WILL CONTINUE TO MONITOR
[2019-09-07] MEDS: VITAMIN D 400 IU TAB PO SCH (08:57)
[2019-09-07] MEDS: LACTOBACILLUS RHAMNOSUS GG 1 EACH CAP PO SCH (08:57)
[2019-09-07] MEDS: methylPREDNISolone SS 40 MG/ML VIAL IVP SCH ×2 (08:57→20:23)
[2019-09-07] MEDS: ZINC SULF 220 MG CAP PO SCH ×2 (08:59→20:22)
[2019-09-07] MEDS: ASCORBIC ACID 500 MG TAB PO SCH (08:59)
[2019-09-07] MEDS: ENOXAPARIN 100 MG/ML SYR SUBQ SCH ×2 (09:01→20:25)
[2019-09-07] MEDS: guaiFENesin 600 MG TABER PO SCH ×2 (09:02→20:22)
--- NOTE | 2019-09-07 09:15 | NUR ---
ADMINISTERED SCHED MED PRESCRIBED PER MD ORDER. PT TOLERATED WELL. SAFETY MEASURES IN PLACE. WILL CONTINUE TO MONITOR
--- NOTE | 2019-09-07 10:30 | NUR ---
ASSISTED PT ON BEDPAN. PT TOLERATED WELL. ASSISTED CLEANING UP AND REPOSITIONING PATIENT. PATIENT TOLERATED WELL. SAFETY MEASURES IN PLACE. WILL CONTINUE TO MONITOR
--- NOTE | 2019-09-07 11:26 | NUR ---
HOURLY ROUNDING. PT RESTING IN BED. ABLE TO MAKE NEEDS KNOWN. RESPIRATIONS EVEN AND UNLABORED WITH NO SOB OR RESPIRATORY DISTRESS. SKIN WARM AND DRY TO TOUCH. SAFETY MEASURES IN PLACE. WILL CONTINUE TO MONITOR
--- NOTE | 2019-09-07 11:32 | NUR ---
PT BLOOD SUGAR IS 179. PRN INSULIN WILL BE ADMINISTERED WITH NEXT MEAL. SAFETY MEASURES IN PLACE. WILL CONTINUE TO MONITOR
--- NOTE | 2019-09-07 12:45 | NUR ---
ASSISTED PT ON AND OFF BEDPAN. PT TOLERATED WELL. ASSISTED CLEANING UP AND REPOSITIONING PATIENT. PATIENT TOLERATED WELL. SAFETY MEASURES IN PLACE. WILL CONTINUE TO MONITOR
[2019-09-07] MEDS: NACL 0.9% 1,000 ML IV SCH (13:15)
--- NOTE | 2019-09-07 13:15 | NUR ---
ADMINISTERED SCHED IVF PRESCRIBED PER MD ORDER. PT TOLERATED WELL. SAFETY MEASURES IN PLACE. WILL CONTINUE TO MONITOR
--- NOTE | 2019-09-07 14:45 | NUR ---
PATIENT CALLED AND SAID THAT SHE NEEDS TO USE THE BEDPAN. ASSISTED PT ON AND OFF BEDPAN. PATIENT TOLERATED WELL. SAFETY MEASURES IN PLACE. WILL CONTINUE TO MONITOR
--- NOTE | 2019-09-07 16:30 | NUR ---
PT BLOOD SUGAR IS 207. PRN INSULIN WILL BE ADMINISTERED WITH NEXT MEAL. SAFETY MEASURES IN PLACE. WILL CONTINUE TO MONITOR
--- NOTE | 2019-09-07 17:15 | NUR ---
ADMINISTERED SCHED MED PRESCRIBED PER MD ORDER. PT TOLERATED WELL. SAFETY MEASURES IN PLACE. WILL CONTINUE TO MONITOR
--- NOTE | 2019-09-07 18:13 | NUR ---
[facility] [phone] CALLED FOR AN UPDATE. EXPLAINED UPDATE TO HIM. HE VERIFIED INFORMATION. WILL CONTINUE TO MONITOR
--- NOTE | 2019-09-07 19:09 | NUR ---
ENDORSED AT BEDSIDE TO NIGHTSHIFT NURSE FOR CONTINUITY OF CARE. PATIENT IS STABLE
--- NOTE | 2019-09-07 19:25 | NUR ---
RECEIVED REPORT FROM MORNING SHIFT NURSE. PT IS CURRENTLY IN BED IN STABLE CONDITION WILL CONTINUE TO MONITOR AND CONTINUE WITH POC
--- NOTE | 2019-09-07 20:23 | NUR ---
RECEIVED REPORT FROM AM SHIFT. PT SEEN AND ASSESSED. PT IS ON BiPAP SETTINGS IPAP 14, EPAP 10, BACK UP RATE 14, FiO2 50% WITH SPO2 OF 93%. AUSCULTATION REVEALS BILATERAL RALES BREATH SOUNDS. PT IN NO APPARENT RESPIRATORY DISTRESS AT THIS TIME. HHN TX GIVEN VIA INLINE AND PT TOLERATED WELL WITH NO ADVERSE REACTION. WILL CONTINUE TO MONITOR PT.
--- NOTE | 2019-09-07 21:40 | NUR ---
MEDICATION GIVEN PER MR ORDERS, TOLERATED WELL. RESPIRATION EVEN AND UNLABORED IN NO DISTRESS, PT WAS ASSISTED WITH BEDPAN. PT VOIDED AND HAD SMALL BM. PT WAS ASSISTED WITH PROVISION OF CARE. WILL CONTINUE TO MONITOR
--- NOTE | 2019-09-07 22:30 | NUR ---
RESTING IN BED SEMI-FOWLERS POSITION REMAINS ON BIPAP FIO2 50% WITH SPO2 AT 93% CALL LIGHT WITHIN REACH IN NO DISTRESS WILL CONTINUE TO MONITOR.
[2019-09-08] VITALS: BP 100/61
--- NOTE | 2019-09-08 00:15 | NUR ---
PT RESTING IN BED. V/S: 97.6, 96, 21, 100/61, 93 % ON BIPAP AT 50%. PT WAS ASSISTED WITH BEDPAN AND VOIDED X 1 CLEAR YELLOW URINE. IN NO RESPIRATORY DISTRESS. CALL LIGHT WITHIN REACH WILL CONTINUE TO MONITOR.
--- NOTE | 2019-09-08 02:10 | NUR ---
PT ASLEEP IN SEMI-FOWLERS POSITION WITH RELAXED MUSCLES, REMAINS ON BIPAP AT FIO2 50% WITH SPO2 OF 94%. RESPIRATION EVEN AND UNLABORED. CALL LIGHT IS WITHIN REACH. PT ABLE TO COMMUNICATE NEEDS. ALL NEEDS MET AT THIS TIME. WILL CONTINUE TO MONITOR.
[2019-09-08 04:02] VITALS: BP 112/67
--- NOTE | 2019-09-08 04:10 | NUR ---
PT WAS ASSISTED WITH PROVISION OF CARE AND GIVEN BED DE LA O. PT. VOIDED X 1 AND LINEN WAS CHANGED. V/S: 98.0, 98, 22, 112/67, 94 % ON BIPAP FIO2 50% . IN NO DISTRESS PT IS STABLE AT THIS TIME. PT ABLE TO COMMUNICATE NEEDS IN [place]. ALL NEEDS HAVE BEEN MET. HAD BLOOD DRAW WITH NO COMPLICATIONS.
--- NOTE | 2019-09-08 06:15 | NUR ---
PT RESTING IN BED IN NO DISTRESS. RESPIRATION EVEN AND UNLABORED. WILL CONTINUE TO MONITOR
[2019-09-08 06:19] LABS: BASOPHILS % (AUTO) 0.2 % (0.0-2.0); EOSINOPHILS % (AUTO) 0.2 % (0.0-4.0); HEMATOCRIT 44.7 % (36-48); HEMOGLOBIN 14.5 g/dL (12.0-16.0); LYMPHOCYTES # (AUTO) 1.2 K/uL (2.5-16.5); MEAN CORPUSCULAR HEMOGLOBIN 29 pg (27-31); MEAN CORPUSCULAR HGB CONC 32 g/dL (33-37); MEAN CORPUSCULAR VOLUME 89.2 fL (80-94); MONOCYTES # (AUTO) 0.7 K/uL (0.8-1.0); MONOCYTES % (AUTO) 6.7 % (1.7-9.3); NEUTROPHILS # (AUTO) 9.1 K/uL (1.8-7.7); NEUTROPHILS % (AUTO) 81.9 % (42.2-75.2); PLATELET COUNT (AUTO) 355 K/uL (140-450); RED BLOOD CELL COUNT(AUTO) 5.01 MIL/uL (4.20-5.40); RED CELL DISTRIBUTION WIDTH 14.9 % (11.6-13.7); WHITE BLOOD COUNT (AUTO) 11.1 K/uL (4.8-10.8)
[2019-09-08] MEDS: INSULIN LISPRO SLIDING SCALE 100 UNITS/ML VIAL SUBQ PRN ×3 (06:30→20:44)
[2019-09-08 07:09] LABS: ALBUMIN 3.5 g/dL (3.4-5.0); ANION GAP 16.4 (8-16); CARBON DIOXIDE 27.2 mmol/L (21-32); CREATININE 0.8 mg/dL (0.6-1.3); MAGNESIUM 2.1 mg/dL (1.8-2.4); PHOSPHORUS 5.3 mg/dL (2.5-4.9); POTASSIUM 3.6 mmol/L (3.5-5.1); TOTAL BILIRUBIN 0.4 mg/dL (0.0-1.0)
--- NOTE | 2019-09-08 07:10 | NUR ---
RECEIVED REPORT FROM TIMBER FELLER NURSE FOR CONTINUITY OF CARE. PATIENT ASLEEP AND IN BED. ABLE TO MAKE NEEDS KNOWN. RESPIRATIONS EVEN AND UNLABORED WITH NO SOB OR RESPIRATORY DISTRESS, BIPAP IN PLACE WITH FIO2 AT 50% AND SAO2 AT 94%. NO SIGNS OF DISTRESS NOTED. SKIN WARM AND DRY TO TOUCH. IV SITE IN RFA 22G IS CLEAN, DRY, AND INTACT IVF RUNNING PER ORDERS. DROPLET ISOLATION OBSERVED BY ALL STAFF. POC DISCUSSED. SAFETY MEASURES IN PLACE. CALL LIGHT WITHIN REACH. WILL CONTINUE TO MONITOR
--- NOTE | 2019-09-08 07:18 | NUR ---
BEDSIDE REPORT GIVEN TO AM RN FOR CONTINUITY OF CARE. PT IS LAYING IN BED REMAINS ON BIPAP FIO2 50% WITH SPO2 OF 94% PT IS STABLE.
[2019-09-08] MEDS: BLOOD GLUCOSE MONITORING 1 DEV DEV FS SCH ×4 (07:30→20:22)
[2019-09-08 08:00] VITALS: BP 111/74
[2019-09-08] MEDS: ACETYLCYSTEINE 10% (100 MG/ML) 100 MG/ML VIAL INH SCH ×2 (08:30→13:12)
[2019-09-08] MEDS: ALBUTEROL SULFATE/IPRATROPIU 3 ML SOL IH SCH ×3 (08:30→20:54)
[2019-09-08] MEDS: ENOXAPARIN 100 MG/ML SYR SUBQ SCH ×2 (09:00→20:18)
[2019-09-08] MEDS: ASCORBIC ACID 500 MG TAB PO SCH (09:43)
[2019-09-08] MEDS: VITAMIN D 400 IU TAB PO SCH (09:43)
[2019-09-08] MEDS: guaiFENesin 600 MG TABER PO SCH ×2 (09:43→20:16)
--- NOTE | 2019-09-08 09:43 | NUR ---
MORNING MEDICATIONS GIVEN. NO SIGNS OF DISTRESS NOTED. WILL CONTINUE TO MONITOR.
[2019-09-08] MEDS: methylPREDNISolone SS 40 MG/ML VIAL IVP SCH ×2 (09:44→20:16)
[2019-09-08] MEDS: LACTOBACILLUS RHAMNOSUS GG 1 EACH CAP PO SCH (09:44)
[2019-09-08] MEDS: ZINC SULF 220 MG CAP PO SCH ×2 (09:44→20:16)
--- NOTE | 2019-09-08 10:20 | NUR ---
PATIENT USING BEDPAN, HAD 1 MODERATE BM. PATIENT VERBALIZES NO PAIN. WILL CONTINUE TO MONITOR.
--- NOTE | 2019-09-08 11:35 | NUR ---
BLOOD GLUCOSE TAKEN, NO INSULIN COVERAGE NEEDED FOR 135. NO SIGNS OF DISTRESS NOTED AND V/S TAKEN WNL. WILL CONTINUE TO MONITOR.
[2019-09-08 12:00] VITALS: BP 117/89
[2019-09-08] MEDS: NACL 0.9% 1,000 ML IV SCH (13:10)
--- NOTE | 2019-09-08 13:50 | NUR ---
PATIENT ASLEEP AND IN BED. NO SIGNS OF DISTRESS NOTED. WILL CONTINUE TO MONITOR.
[2019-09-08 16:00] VITALS: BP 109/71
--- NOTE | 2019-09-08 16:36 | NUR ---
6 UNITS OF INSULIN GIVEN FOR BLOOD GLUCOSE OF 255. NO SIGNS OF DISTRESS NOTED. V/S TAKEN AND IS WNL. WILL CONTINUE TO MONITOR.
--- NOTE | 2019-09-08 17:10 | NUR ---
RT BY THE BEDSIDE, NO SIGNS OF DISTRESS NOTED. WILL CONTINUE TO MONITOR.
--- NOTE | 2019-09-08 19:10 | NUR ---
ENDORSED TO OFFICE SERVICES COORDINATOR NURSE FOR CONTINUITY OF CARE.
--- NOTE | 2019-09-08 19:10 | NUR ---
RECEIVED BEDSIDE ENDORSEMENT FROM LEROY RIZVI. PATIENT IS LYING IN BED, FOWLERS POSITION. AAOX4. NO SOB. ON BIPAP, FIO2 50%, O2 SAT 94%. PLAN OF CARE DISCUSSED. DROPLET PRECAUTION OBSERVED. FALL RISK PROTOCOL IN PLACE. CALL LIGHT WITHIN REACH.
[2019-09-08 20:00] VITALS: BP 131/75
--- NOTE | 2019-09-08 20:22 | NUR ---
DUE MEDS GIVEN ORDERED, TOLERATED WELL, MED EDUCATION PROVIDED, NO A/R NOTED. ASSISTED PATIENT IN USING THE BEDPAN. NO SOB.
[2019-09-09] VITALS: BP 115/73
--- NOTE | 2019-09-09 00:10 | NUR ---
HELPED PATIENT IS USING THE BEDPAN IN URINATION. TOLERATED WELL WITH NO SIGNS OF RESPIRATORY DISTRESS.
--- NOTE | 2019-09-09 02:00 | NUR ---
PATIENT SLEEPING, CON'T ON BIPAP WITH O2 SAT AT 94%, HR 86.
[2019-09-09 04:00] VITALS: BP 117/77
--- NOTE | 2019-09-09 04:15 | NUR ---
ASSISTED IN USING BEDPAN, KEPT CLEAN AND DRY. V/S TAKEN
[2019-09-09 06:05] LABS: BASOPHILS % (AUTO) 0.2 % (0.0-2.0); EOSINOPHILS # (AUTO) 0.1 K/uL (0-0.4); EOSINOPHILS % (AUTO) 0.6 % (0.0-4.0); HEMATOCRIT 42.7 % (36-48); HEMOGLOBIN 13.9 g/dL (12.0-16.0); LYMPHOCYTES # (AUTO) 0.8 K/uL (2.5-16.5); LYMPHOCYTES % (AUTO) 8.9 % (20.5-51.1); MEAN CORPUSCULAR HEMOGLOBIN 29 pg (27-31); MEAN CORPUSCULAR HGB CONC 32 g/dL (33-37); MEAN CORPUSCULAR VOLUME 89.6 fL (80-94); MONOCYTES # (AUTO) 0.7 K/uL (0.8-1.0); MONOCYTES % (AUTO) 7.7 % (1.7-9.3); NEUTROPHILS # (AUTO) 7.8 K/uL (1.8-7.7); NEUTROPHILS % (AUTO) 82.6 % (42.2-75.2); PLATELET COUNT (AUTO) 320 K/uL (140-450); RED BLOOD CELL COUNT(AUTO) 4.77 MIL/uL (4.20-5.40); RED CELL DISTRIBUTION WIDTH 15.1 % (11.6-13.7); WHITE BLOOD COUNT (AUTO) 9.4 K/uL (4.8-10.8)
--- NOTE | 2019-09-09 06:30 | NUR ---
ACCU CHECKED 152. PATIENT REFUSED INSULIN 2 UNITS SQ.
[2019-09-09] MEDS: BLOOD GLUCOSE MONITORING 1 DEV DEV FS SCH ×4 (06:38→20:12)
--- NOTE | 2019-09-09 06:54 | NUR ---
CONTINUE ON BIPAP WITH O2 SAT OF 95%, RESTING. PATIENT IS NOT IN ANY DISTRESS. WILL ENDORSE TO AM SHIFT RN FOR CONTINUITY OF CARE.
--- NOTE | 2019-09-09 07:03 | NUR ---
PATIENT IS IN STABLE CONDITION. NO SOB. ENDORSED TO LEROY RIZVI FOR CONTINUITY OF CARE.
--- NOTE | 2019-09-09 07:05 | NUR ---
RECEIVED REPORT FROM CIVIL CAD DESIGNER NURSE FOR CONTINUITY OF CARE. PATIENT ASLEEP AND IN BED. ABLE TO MAKE NEEDS KNOWN. RESPIRATIONS EVEN AND UNLABORED WITH NO SOB OR RESPIRATORY DISTRESS, BIPAP IN PLACE WITH FIO2 AT 50% AND SAO2 AT 94%. NO SIGNS OF DISTRESS NOTED. SKIN WARM AND DRY TO TOUCH. IV SITE IN RFA 22G IS CLEAN, DRY, AND INTACT IVF RUNNING PER ORDERS. DROPLET ISOLATION OBSERVED BY ALL STAFF. POC DISCUSSED. SAFETY MEASURES IN PLACE. CALL LIGHT WITHIN REACH. WILL CONTINUE TO MONITOR
[2019-09-09 07:26] LABS: ALBUMIN 3.3 g/dL (3.4-5.0); ANION GAP 15.3 (8-16); CARBON DIOXIDE 28.3 mmol/L (21-32); CREATININE 0.8 mg/dL (0.6-1.3); MAGNESIUM 2.1 mg/dL (1.8-2.4); PHOSPHORUS 4.6 mg/dL (2.5-4.9); POTASSIUM 3.6 mmol/L (3.5-5.1); TOTAL BILIRUBIN 0.4 mg/dL (0.0-1.0)
[2019-09-09 08:00] VITALS: BP 109/73
[2019-09-09] MEDS: ALBUTEROL SULFATE/IPRATROPIU 3 ML SOL IH SCH ×3 (08:31→19:00)
--- NOTE | 2019-09-09 09:17 | NUR ---
RECEIVED PT ON BIPAP. SETTINGS 14/10, R14 AND FIO2 TITRATED TO 40%. PT TOLERATING WELL. WILL ADMINISTER 0700 AM BREATHING TX. BIPAP IS PLUGGED INTO A RED OUTLET WITH ALARMS AND FUNCTIONING. PROTECTA GEL PLACED UNDER MASK FOR SKIN PROTECTION. WILL CONTINUE TO MONITOR.
[2019-09-09] MEDS: methylPREDNISolone SS 40 MG/ML VIAL IVP SCH ×2 (09:20→20:05)
[2019-09-09] MEDS: ZINC SULF 220 MG CAP PO SCH ×2 (09:20→20:06)
--- NOTE | 2019-09-09 09:20 | NUR ---
MORNING MEDICATIONS GIVEN. NO SIGNS OF DISTRESS NOTED AND PATIENT VERBALIZES NO PAIN. WILL CONTINUE TO MONITOR.
[2019-09-09] MEDS: ASCORBIC ACID 500 MG TAB PO SCH (09:21)
[2019-09-09] MEDS: guaiFENesin 600 MG TABER PO SCH ×2 (09:21→20:06)
[2019-09-09] MEDS: VITAMIN D 400 IU TAB PO SCH (09:21)
[2019-09-09] MEDS: LACTOBACILLUS RHAMNOSUS GG 1 EACH CAP PO SCH (09:21)
[2019-09-09] MEDS: ENOXAPARIN 100 MG/ML SYR SUBQ SCH ×2 (09:39→20:07)
[2019-09-09] MEDS: NACL 0.9% 1,000 ML IV SCH (11:23)
--- NOTE | 2019-09-09 11:31 | NUR ---
2 UNITS OF INSULIN GIVEN FOR BLOOD GLUCOSE OF 171. NO SIGNS OF DISTRESS NOTED. BIPAP IS IN PLACE. V/S TAKEN AND IS WNL. WILL CONTINUE TO MONITOR.
[2019-09-09] MEDS: INSULIN LISPRO SLIDING SCALE 100 UNITS/ML VIAL SUBQ PRN ×2 (11:33→16:53)
--- NOTE | 2019-09-09 11:40 | NUR ---
PT BY THE BEDSIDE, PATIENT IS VISIBLY EXHAUSTED DURING EXERCISES. PATIENT'S SAO2 DECREASED TO 76% AND HR INCREASED TO 140'S. AT REST AFTER EXERCISES, PATIENT SAO2 INCREASED TO 91% AND HR DECREASED TO 113. PATIENT VERBALIZES NO PAIN. WILL CONTINUE TO MONITOR.
[2019-09-09 12:00] VITALS: BP 112/76
[2019-09-09 16:00] VITALS: BP 103/70
--- NOTE | 2019-09-09 16:53 | NUR ---
2 UNITS OF INSULIN GIVEN FOR BLOOD GLUCOSE OF 197. NO SIGNS OF DISTRESS NOTED. WILL CONTINUE TO MONITOR.
--- NOTE | 2019-09-09 19:00 | NUR ---
RECEIVED BEDSIDE ENDORSEMENT FROM LEROY RIZVI. PATIENT IS LYING IN BED, FOWLERS POSITION. AAOX4. NO SOB. NOT IN DISTRESS, ON BIPAP WITH SATURATION OF 94%. IV SITE AT RFA 22G, INTACT AND PATENT INFUSING NS 10 CC/HR. DROPLET PRECAUTION OBSERVED FOR COVID +. FALL RISK PROTOCOL IN PLACE. PLAN OF CARE DISCUSSED. CALL LIGHT WITHIN REACH.
--- NOTE | 2019-09-09 19:22 | NUR ---
ENDORSED TO JAVA GROOVY DEVELOPER NURSE FOR CONTINUITY OF CARE.
[2019-09-09 20:00] VITALS: BP 121/72
--- NOTE | 2019-09-09 20:12 | NUR ---
DUE MEDS GIVEN ORDERED, TOLERATED WELL, MED EDUCATION PROVIDED.
--- NOTE | 2019-09-09 23:30 | NUR ---
V/S TAKEN, NO SOB. KEPT COMFORTABLE.
[2019-09-10] VITALS: BP 112/80
--- NOTE | 2019-09-10 00:30 | NUR ---
CLEANED PATIENT, KEPT WARM AND DRY.
--- NOTE | 2019-09-10 02:00 | NUR ---
PATIENT IS SLEEPING. RESPIRATION EVEN AND UNLABORED.
[2019-09-10 04:00] VITALS: BP 116/74
--- NOTE | 2019-09-10 04:00 | NUR ---
V/S TAKEN AND RECORDED. NO SOB, DENIES PAIN.
[2019-09-10 06:21] LABS: BASOPHILS % (AUTO) 0.2 % (0.0-2.0); EOSINOPHILS % (AUTO) 0.2 % (0.0-4.0); HEMATOCRIT 40.7 % (36-48); HEMOGLOBIN 13.2 g/dL (12.0-16.0); LYMPHOCYTES # (AUTO) 0.8 K/uL (2.5-16.5); LYMPHOCYTES % (AUTO) 8.8 % (20.5-51.1); MEAN CORPUSCULAR HEMOGLOBIN 29 pg (27-31); MEAN CORPUSCULAR HGB CONC 32 g/dL (33-37); MEAN CORPUSCULAR VOLUME 89.2 fL (80-94); MONOCYTES # (AUTO) 0.7 K/uL (0.8-1.0); MONOCYTES % (AUTO) 7.1 % (1.7-9.3); NEUTROPHILS # (AUTO) 7.7 K/uL (1.8-7.7); NEUTROPHILS % (AUTO) 83.7 % (42.2-75.2); PLATELET COUNT (AUTO) 280 K/uL (140-450); RED BLOOD CELL COUNT(AUTO) 4.56 MIL/uL (4.20-5.40); RED CELL DISTRIBUTION WIDTH 15.1 % (11.6-13.7); WHITE BLOOD COUNT (AUTO) 9.2 K/uL (4.8-10.8)
[2019-09-10 06:29] LABS: ANION GAP 10.9 (8-16); CARBON DIOXIDE 29.7 mmol/L (21-32); CREATININE 0.6 mg/dL (0.6-1.3); POTASSIUM 3.6 mmol/L (3.5-5.1)
[2019-09-10] MEDS: BLOOD GLUCOSE MONITORING 1 DEV DEV FS SCH ×4 (06:30→20:07)
[2019-09-10] MEDS: ALBUTEROL SULFATE/IPRATROPIU 3 ML SOL IH SCH ×3 (07:00→19:00)
--- NOTE | 2019-09-10 07:15 | NUR ---
PATIENT IS IN STABLE CONDITION. NO SOB. O2 SAT 97% ON BIPAP. BEDSIDE ENDORSEMENT GIVEN TO LEROY NICOLE FOR CONTINUITY OF CARE.
--- NOTE | 2019-09-10 07:16 | NUR ---
REPORT GIVEN FROM NIGHT NURSE TRINA. PATIENT AWAKE, ALERT ORIENTED X4. BIPAP IN PLACE. O2 SAT 97%. PLANS OF CARE DISCUSSED. BED IN LOW POSITION. IV TO RIGHT FOREARM INTACT AND PATENT. NO DISTRESS NOTED. CALL LIGHT WITHIN REACH.
[2019-09-10 08:00] VITALS: BP 116/73
[2019-09-10] MEDS: methylPREDNISolone SS 40 MG/ML VIAL IVP SCH ×2 (09:20→20:07)
[2019-09-10] MEDS: LACTOBACILLUS RHAMNOSUS GG 1 EACH CAP PO SCH (09:21)
[2019-09-10] MEDS: guaiFENesin 600 MG TABER PO SCH ×2 (09:22→20:07)
[2019-09-10] MEDS: ASCORBIC ACID 500 MG TAB PO SCH (09:22)
[2019-09-10] MEDS: ZINC SULF 220 MG CAP PO SCH ×2 (09:22→20:07)
[2019-09-10] MEDS: VITAMIN D 400 IU TAB PO SCH (09:22)
[2019-09-10] MEDS: ENOXAPARIN 100 MG/ML SYR SUBQ SCH ×2 (09:25→20:10)
--- NOTE | 2019-09-10 09:30 | NUR ---
PATIENT ON BIPAP. AWAKE, ALERT AND ORIENTED X4. DENIES ANY PAIN OR DISCOMFORT. CALL LIGHT WITHIN REACH.
[2019-09-10 12:00] VITALS: BP 115/73
--- NOTE | 2019-09-10 12:30 | NUR ---
ROUNDS MADE. PATIENT ON BIPAP. AWAKE, ALERT AND ORIENTED X4. DENIES ANY PAIN OR DISCOMFORT. ASSISTED PATIENT WITH BED DE LA O. CALL LIGHT WITHIN REACH.
[2019-09-10] MEDS: INSULIN LISPRO SLIDING SCALE 100 UNITS/ML VIAL SUBQ PRN ×3 (12:45→20:10)
[2019-09-10] MEDS: NACL 0.9% 1,000 ML IV SCH (13:10)
--- NOTE | 2019-09-10 14:34 | NUR ---
PATIENT IS WATCHING TV. BIPAP IN PLACE AND TOLERATING WELL. 02 SAT 97%.
[2019-09-10 16:00] VITALS: BP 130/75
--- NOTE | 2019-09-10 16:00 | NUR ---
ASSISTED PATIENT WITH BEDPAN. PATIENT IS WITH BIPAP @ 50%. TOLERATING WELL.
--- NOTE | 2019-09-10 17:44 | NUR ---
ASSISTED PATIENT WITH BEDPAN. REPOSITIONED PATIENT FOR COMFORT. NEEDS MET AT THIS TIME. BIPAP ON AND TOLERATING WELL.
--- NOTE | 2019-09-10 19:15 | NUR ---
BEDSIDE REPORT GIVEN TO NIGHT NURSE FOR CONTINUITY OF CARE. PT IN STABLE CONDITION.
--- NOTE | 2019-09-10 19:16 | NUR ---
RECEIVED PATIENT IN STABLE CONDITION FROM AM SHIFT NURSE FOR CONTINUITY OF CARE. TELE PATIENT. RESPIRATIONS SLIGHTLY TACHYPNEIC BUT UNLABORED. CONTINUES ON BIPAP 50% WITH O2SAT 96%. SKIN WARM, DRY. IV SITE TO RIGHT FOREARM 22G PATENT/INTACT. NO C/O PAIN. NO S/S ACUTE DISTRESS. PATIENT IS CONTINENT OF B/B. PLAN OF CARE DISCUSSED WITH PATIENT. CALL LIGHT WITHIN REACH. SAFETY PRECAUTIONS IN PLACE. ISOLATION PRECAUTIONS OBSERVED BY ALL STAFF.
[2019-09-10 20:00] VITALS: BP 102/67
--- NOTE | 2019-09-10 21:48 | NUR ---
DUE MEDS GIVEN ORDERED. PATIENT IS IN STABLE CONDITION AT THIS TIME. CALL LIGHT WITHIN REACH.
--- NOTE | 2019-09-10 23:15 | NUR ---
PATIENT AWAKE AND WATCHING TV. CONTINUES IN STABLE CONDITION. NO C/O PAIN. NO S/S ACUTE DISTRESS. CALL LIGHT WITHIN REACH. SAFETY PRECAUTIONS IN PLACE. ISOLATION PRECAUTIONS OBSERVED BY ALL STAFF.
[2019-09-11] VITALS: BP 110/64
--- NOTE | 2019-09-11 01:25 | NUR ---
MADE ROUNDS. PATIENT IS ASLEEP AND IN STABLE CONDITION. NO S/S ACUTE DISTRESS. CALL LIGHT WITHIN REACH. SAFETY PRECAUTIONS IN PLACE. ISOLATION PRECAUTIONS OBSERVED BY ALL STAFF.
--- NOTE | 2019-09-11 03:20 | NUR ---
PATIENT ASLEEP WITH NO S/S ACUTE DISTRESS. CALL LIGHT WITHIN REACH. SAFETY PRECAUTIONS IN PLACE. ISOLATION PRECAUTIONS OBSERVED BY ALL STAFF.
[2019-09-11 04:00] VITALS: BP 101/66
--- NOTE | 2019-09-11 05:41 | NUR ---
ASSISTED PATIENT ONTO BEDPAN. VOIDED WELL. NO C/O PAIN. NO S/S ACUTE DISTRESS. CALL LIGHT WITHIN REACH. SAFETY PRECAUTIONS IN PLACE. ISOLATION PRECAUTIONS OBSERVED BY ALL STAFF.
[2019-09-11 06:14] LABS: BASOPHILS % (AUTO) 0.1 % (0.0-2.0); EOSINOPHILS % (AUTO) 0.3 % (0.0-4.0); HEMATOCRIT 40.4 % (36-48); HEMOGLOBIN 13.3 g/dL (12.0-16.0); LYMPHOCYTES % (AUTO) 11.4 % (20.5-51.1); MEAN CORPUSCULAR HEMOGLOBIN 29 pg (27-31); MEAN CORPUSCULAR HGB CONC 33 g/dL (33-37); MEAN CORPUSCULAR VOLUME 88.3 fL (80-94); MONOCYTES # (AUTO) 0.8 K/uL (0.8-1.0); NEUTROPHILS # (AUTO) 6.9 K/uL (1.8-7.7); NEUTROPHILS % (AUTO) 79.2 % (42.2-75.2); PLATELET COUNT (AUTO) 272 K/uL (140-450); RED BLOOD CELL COUNT(AUTO) 4.58 MIL/uL (4.20-5.40); RED CELL DISTRIBUTION WIDTH 14.8 % (11.6-13.7); WHITE BLOOD COUNT (AUTO) 8.7 K/uL (4.8-10.8)
[2019-09-11 06:23] LABS: ANION GAP 12.3 (8-16); CARBON DIOXIDE 29.3 mmol/L (21-32); CREATININE 0.6 mg/dL (0.6-1.3); POTASSIUM 3.6 mmol/L (3.5-5.1)
[2019-09-11] MEDS: ALBUTEROL SULFATE/IPRATROPIU 3 ML SOL IH SCH ×2 (07:00→13:32)
--- NOTE | 2019-09-11 07:20 | NUR ---
RECEIVED PATIENT FROM DRILL PRESSER NURSE FOR CONTINUITY OF CARE. PATIENT IS ASLEEP, SEMI FOWLERS. RESPIRATIONS EVEN AND UNLABORED. ON 50% FIO2 BIPAP. NO S/S OF RESPIRATORY DISTRESS NOTED. VISIBLE CHEST RISE AND FALL NOTED. ON TELE MONITORING. SKIN, WARM, DRY, AND INTACT. IV R FA G22, RUNNING NS AT 10 ML/HR. PATIENT IS CONTINENT, USES BEDPAN. FALL PRECAUTION IN PLACE. SAFETY MEASURES IN PLACE. BED IN LOW POSITION. CALL LIGHT IS WITHIN REACH. WILL CONTINUE TO MONITOR. ON DROPLET PRECAUTION FOR COVID-19.
[2019-09-11] MEDS: BLOOD GLUCOSE MONITORING 1 DEV DEV FS SCH ×4 (07:30→21:12)
[2019-09-11 08:00] VITALS: BP 115/60
[2019-09-11] MEDS: methylPREDNISolone SS 40 MG/ML VIAL IVP SCH ×2 (08:41→21:12)
[2019-09-11] MEDS: VITAMIN D 400 IU TAB PO SCH (08:42)
[2019-09-11] MEDS: ASCORBIC ACID 500 MG TAB PO SCH (08:42)
[2019-09-11] MEDS: ZINC SULF 220 MG CAP PO SCH ×2 (08:42→21:12)
[2019-09-11] MEDS: LACTOBACILLUS RHAMNOSUS GG 1 EACH CAP PO SCH (08:43)
[2019-09-11] MEDS: guaiFENesin 600 MG TABER PO SCH ×2 (08:46→21:12)
[2019-09-11] MEDS: ENOXAPARIN 100 MG/ML SYR SUBQ SCH ×2 (08:53→21:11)
--- NOTE | 2019-09-11 09:20 | NUR ---
MORNING MEDS GIVEN. PT TOLERATED WELL. BLOOD GLU: 181, GIVEN 2 UNITS OF INSULIN COVERAGE PER SLIDING SCALE. NO ACUTE DISTRESS NOTED. PT SAO2 95. WILL CONTINUE TO MONITOR.
--- NOTE | 2019-09-11 09:57 | NUR ---
09/11/19 RD FOLLOW UP COMPLETED PLEASE REFER TO NUTRITION PROGRESS NOTE UNDER CARE ACTIVITY FOR ESTIMATED NUTRITION NEEDS. RD RECOMMENDATIONS: 1. CONTINUE PUREE CCHO 60GM DIET TOLERATED 2. CONTINUE GLUCERNA [address] TO FOLLOW-UP 7 DAYS, LOW RISK KAYODE MARIO, MS, RDN
[2019-09-11] MEDS: INSULIN LISPRO SLIDING SCALE 100 UNITS/ML VIAL SUBQ PRN ×3 (10:08→21:10)
--- NOTE | 2019-09-11 11:29 | NUR ---
PT VS: BP 104/78, HR: 92, RR: 21, SAO2: 97% ON BIPAP 50% FIO2, TEMP: 98.4. PT BLOOD GLU 118. NO COVERAGE NEEDED. NO ACUTE DISTRESS NOTED. WILL CONTINUE TO MONITOR. Addendum: 09/11/19 at 1139 by Dann Jarquin RN CORRECTION: BLOOD GLU: 138
[2019-09-11 12:11] VITALS: BP 104/78
--- NOTE | 2019-09-11 12:23 | NUR ---
PATIENT RESTING IN BED. ON 50% FIO2 BIPAP, O2SAT 96%, HR 91. NO SIGNS OF DISTRESS NOTED. BED IN LOW POSITION. CALL LIGHT IS WITHIN REACH. WILL CONTINUE TO MONITOR.
--- NOTE | 2019-09-11 12:52 | NUR ---
FOLLOW UP PATIENT'S LUNCH TRAY. FNS STATED THEY WILL BRING IT HERE. PATIENT AWARE
[2019-09-11] MEDS: NACL 0.9% 1,000 ML IV SCH (13:00)
--- NOTE | 2019-09-11 13:06 | NUR ---
PT GIVEN LUNCH TRAY. NO ACUTE DISTRESS NOTED. SAO2: 97%. WILL CONTINUE TO MONITOR.
--- NOTE | 2019-09-11 15:20 | NUR ---
ASSISTED PT ON BEDPAN FOR URINE. NO ACUTE DISTRESS NOTED.
[2019-09-11 16:19] VITALS: BP 113/75
--- NOTE | 2019-09-11 16:22 | NUR ---
PT BLOOD GLU 268. GIVEN 6 UNITS OF HUMALOG PER SLIDING SCALE. NO ACUTE DISTRESS NOTED. WILL CONTINUE TO MONITOR.
--- NOTE | 2019-09-11 17:18 | NUR ---
6 UNITS HUMALOG GIVEN FOR BLOOD SUGAR OF 268. PATIENT TOLERATED WELL. WILL CONTINUE TO MONITOR. CONTINUES TO BE ON BIBAP 50% FIO2. O2SAT 96%, HR 98. Addendum: 09/11/19 at 1723 by Princess Sheila Mckay RN PLEASE DISREGARD. ALREADY DOCUMENTED/NOTED.
--- NOTE | 2019-09-11 19:10 | NUR ---
ENDORSED TO TRAINING DIRECTOR RN FOR CONTINUITY OF CARE. PT IS IN STABLE CONDITION.
--- NOTE | 2019-09-11 19:15 | NUR ---
RECEIVED PATIENT IN STABLE CONDITION FROM AM SHIFT NURSE FOR CONTINUITY OF CARE. TELE PATIENT. RESPIRATIONS EVEN AND UNLABORED. CONTINUES ON BIPAP 50% WITH O2SAT 97%. SKIN WARM, DRY. IV SITE TO RIGHT FOREARM 22G PATENT/INTACT. NO C/O PAIN. NO S/S ACUTE DISTRESS. PATIENT IS CONTINENT OF B/B. PLAN OF CARE DISCUSSED WITH PATIENT. CALL LIGHT WITHIN REACH. SAFETY PRECAUTIONS IN PLACE. ISOLATION PRECAUTIONS OBSERVED BY ALL STAFF.
[2019-09-11 20:00] VITALS: BP 120/74
--- NOTE | 2019-09-11 21:00 | NUR ---
DUE MEDS GIVEN ORDERED. PATIENT AWAKE AND IN STABLE CONDITION. NO C/O PAIN. NO S/S ACUTE DISTRESS. CALL LIGHT WITHIN REACH. SAFETY PRECAUTIONS IN PLACE. ISOLATION PRECAUTIONS OBSERVED BY ALL STAFF.
--- NOTE | 2019-09-11 23:00 | NUR ---
ASSISTED PATIENT TO BRUSH HER TEETH. PATIENT CONTINUES ON BIPAP 50% WITH O2SAT 96%. NO C/O PAIN. NO S/S ACUTE DISTRESS. CALL LIGHT WITHIN REACH. SAFETY PRECAUTIONS IN PLACE. ISOLATION PRECAUTIONS OBSERVED BY ALL STAFF.
[2019-09-12] VITALS: BP 115/77
--- NOTE | 2019-09-12 01:00 | NUR ---
PATIENT IS SLEEP AND IN STABLE CONDITION. NO S/S ACUTE DISTRESS. CALL LIGHT WITHIN REACH. SAFETY PRECAUTIONS IN PLACE. ISOLATION PRECAUTIONS OBSERVED BY ALL STAFF.
--- NOTE | 2019-09-12 03:15 | NUR ---
PATIENT RESTING COMFORTABLY IN BED. NO S/S ACUTE DISTRESS. NO C/O PAIN. CALL LIGHT WITHIN REACH. SAFETY PRECAUTIONS IN PLACE. ISOLATION PRECAUTIONS OBSERVED BY ALL STAFF.
[2019-09-12 04:00] VITALS: BP 97/66
--- NOTE | 2019-09-12 05:43 | NUR ---
PATIENT RESTING COMFORTABLY IN BED. NO C/O PAIN. NO S/S ACUTE DISTRESS. CALL LIGHT WITHIN REACH. SAFETY PRECAUTIONS IN PLACE. ISOLATION PRECAUTIONS OBSERVED BY ALL STAFF.
[2019-09-12 06:29] LABS: BASOPHILS % (AUTO) 0.1 % (0.0-2.0); EOSINOPHILS % (AUTO) 0.3 % (0.0-4.0); HEMATOCRIT 41.8 % (36-48); HEMOGLOBIN 13.6 g/dL (12.0-16.0); LYMPHOCYTES # (AUTO) 0.9 K/uL (2.5-16.5); LYMPHOCYTES % (AUTO) 9.5 % (20.5-51.1); MEAN CORPUSCULAR HEMOGLOBIN 29 pg (27-31); MEAN CORPUSCULAR HGB CONC 32 g/dL (33-37); MEAN CORPUSCULAR VOLUME 89.9 fL (80-94); MONOCYTES # (AUTO) 0.6 K/uL (0.8-1.0); NEUTROPHILS # (AUTO) 7.7 K/uL (1.8-7.7); NEUTROPHILS % (AUTO) 84.1 % (42.2-75.2); PLATELET COUNT (AUTO) 319 K/uL (140-450); RED BLOOD CELL COUNT(AUTO) 4.65 MIL/uL (4.20-5.40); RED CELL DISTRIBUTION WIDTH 14.9 % (11.6-13.7); WHITE BLOOD COUNT (AUTO) 9.2 K/uL (4.8-10.8)
[2019-09-12] MEDS: BLOOD GLUCOSE MONITORING 1 DEV DEV FS SCH ×4 (06:32→21:40)
[2019-09-12] MEDS: ALBUTEROL SULFATE/IPRATROPIU 3 ML SOL IH SCH ×3 (06:37→20:35)
[2019-09-12 06:55] LABS: ANION GAP 10.1 (8-16); CARBON DIOXIDE 30.6 mmol/L (21-32); CREATININE 0.8 mg/dL (0.6-1.3); POTASSIUM 3.7 mmol/L (3.5-5.1)
--- NOTE | 2019-09-12 07:20 | NUR ---
BEDSIDE REPORT RECEIVED FROM MICROFICHE CAMERA OPERATOR NURSE, PATIENT IS IN STABLE CONDITION. PATIENT CURRENTLY ON BIPAP, SATURATION 98% WITH HR 102. PLACED PATIENT ON BEDPAN, OUTPUT LEON URINE, NON ODOROUS. CAP REFILL < 3 SECONDS, NO CYANOSIS OR PALLOR NOTED. NO EDEMA ON EXTREMITIES. SKIN INTACT. DENIES PAIN AT THIS TIME. ALL NEEDS MET, CALL LIGHT WITHIN REACH, WILL CONTINUE TO MONITOR.
[2019-09-12 08:00] VITALS: BP 119/74
[2019-09-12] MEDS: ASCORBIC ACID 500 MG TAB PO SCH (09:01)
[2019-09-12] MEDS: guaiFENesin 600 MG TABER PO SCH ×2 (09:01→21:21)
--- NOTE | 2019-09-12 09:01 | NUR ---
MEDICATIONS EXPLAINED AND GIVEN TO THE PATIENT, CRUSHED AND IN WATER PER PATIENTS REQUEST. NO ADVERSE SIDE EFFECTS NOTED. NO COMPLAINTS OF PAIN. PATIENT CURRENTLY 98% SATURATION ON BIPAP. PATIENT A&O X 4, LUNG SOUNDS DIMINISHED. SKIN INTACT, CAP REFILL < 3 SECONDS, NO CYANOSIS OR PALLOR NOTED. ALL NEEDS MET, CALL LIGHT WITHIN REACH, WILL CONTINUE TO MONITOR. DROPLET PRECAUTIONS FOLLOWED.
[2019-09-12] MEDS: VITAMIN D 400 IU TAB PO SCH (09:02)
[2019-09-12] MEDS: methylPREDNISolone SS 40 MG/ML VIAL IVP SCH ×2 (09:02→21:21)
[2019-09-12] MEDS: ZINC SULF 220 MG CAP PO SCH ×2 (09:02→21:22)
[2019-09-12] MEDS: LACTOBACILLUS RHAMNOSUS GG 1 EACH CAP PO SCH (09:02)
[2019-09-12] MEDS: ENOXAPARIN 100 MG/ML SYR SUBQ SCH ×2 (09:02→21:23)
--- NOTE | 2019-09-12 11:00 | NUR ---
PATIENT ROUNDS - PATIENT IS STABILIZED, IN NO S/S RESPIRATORY DISTRESS, NO C/O OF PAIN AT THIS TIME. ASSISTED PATIENT TO BED DE LA O, PATIENT HAD ONE SOFT BOWEL MOVEMENT SMALL AMOUNT. ALL NEEDS MET, CALL LIGHT WITHIN REACH, WILL CONTINUE TO MONITOR.
[2019-09-12 12:00] VITALS: BP 95/65
--- NOTE | 2019-09-12 12:00 | NUR ---
BLOOD GLUCOSE CHECKED, SUGAR IS 152 , NO INSULIN GIVEN HUMALOG SLIDING SCALE ORDER WAS DC'D. PAGED DR. SMITH REGARDING PATIENT HUMALOG INSULIN ORDER. AWAITING CALL BACK.
[2019-09-12] MEDS: NACL 0.9% 1,000 ML IV SCH (13:10)
--- NOTE | 2019-09-12 14:00 | NUR ---
PATIENT RESTING IN BED, IN NO S/S RESPIRATORY DISTRESS, NO C/O OF PAIN. SATURATION 98% ON BIPAP AT 50%. ALL NEEDS MET, CALL LIGHT WITHIN REACH, DROPLET PRECAUTIONS FOLLOWED.
[2019-09-12 16:00] VITALS: BP 106/70
--- NOTE | 2019-09-12 16:00 | NUR ---
ROUNDED ON PATIENT, NO S/S RESPIRATORY DISTRESS, NO C/O OF PAIN, READJUSTED BIPAP FOR COMFORT. ALL NEEDS MET, CALL LIGHT WITHIN REACH, WILL CONTINUE TO MONITOR.
[2019-09-12] MEDS ORDERED: DEXTROSE 50% 50 ML SYR IVP PRN (17:30)
[2019-09-12] MEDS: INSULIN LISPRO SLIDING SCALE 100 UNITS/ML VIAL SUBQ PRN ×2 (18:00→21:43)
--- NOTE | 2019-09-12 18:02 | NUR ---
PATIENT CLEANED CHANGED AND REPOSITIONED, PATIENT BED LINENS CHANGED. PATIENT O2 SATURATION REMAINED 95%, HR CURRENTLY 86. ALL NEEDS MET, CALL LIGHT WITHIN REACH, WILL CONTINUE TO MONITOR.
--- NOTE | 2019-09-12 19:30 | NUR ---
BEDSIDE REPORT GIVEN TO GOLD PLATER NURSE, MADE AWARE OF PATIENT CONDITION AND PLAN OF CARE. PATIENT IS STABILIZED.
--- NOTE | 2019-09-12 19:31 | NUR ---
RECEIVED REPORT FROM DAY SHIFT NURSE. PT IS AAOX4 AND ABLE TO MAKE NEEDS KNOWN. RESPIRATIONS EVEN AND UNLABORED. PT IS ON BIPAP FIO2 AT 50%. SKIN IS WARM, DRY, AND INTACT. ABDOMEN IS SOFT AND NON-TENDER. IV ACCESS ON RIGHT FA G22 PATENT AND INTACT, TKO. PT DENIES ANY PAIN OR DISCOMFORT AT THIS TIME. NO REQUESTS MADE. PLAN OF CARE DISCUSSED. PT KEPT COMFORTABLE. SAFETY MEASURES IN PLACE. CALL LIGHT WITHIN REACH. WILL CONTINUE TO MONITOR.
[2019-09-12 20:00] VITALS: BP 100/68
--- NOTE | 2019-09-12 21:25 | NUR ---
VITAL SIGNS STABLE. SCHEDULED MEDS GIVEN. BIPAP IN PLACE. O2 SAT 97%. PT NOT IN DISTRESS. DENIES ANY PAIN OR DISCOMFORT. PT KEPT COMFORTABLE. CALL LIGHT WITHIN REACH. WILL CONTINUE TO MONITOR. Addendum: 09/13/19 at 0052 by Derrick Castro RN SOLU-MEDROL VIAL DYSFUNCTIONAL, PLUG WONT DROP. MEDICATION WASTED, WITNESSED BY SILVER HARPER. NEW DOSE OBTAINED.
--- NOTE | 2019-09-12 22:22 | NUR ---
ROUNDS MADE. PT IN BED USING HER PHONE WITH HOB ELEVATED. BIPAP IN PLACE. O2 SAT 98%. PT NOT IN DISTRESS. NO REQUESTS MADE. PT KEPT COMFORTABLE. CALL LIGHT WITHIN REACH. WILL CONTINUE TO MONITOR.
[2019-09-13] VITALS: BP 125/73
--- NOTE | 2019-09-13 00:16 | NUR ---
VITAL SIGNS STABLE. PT RESTING IN BED WITH HOB ELEVATED. BIPAP IN PLACE. RESPIRATIONS EVEN AND UNLABORED. PT DENIES ANY PAIN OR DISCOMFORT AT THIS TIME. NO REQUESTS MADE. SAFETY MEASURES IN PLACE. CALL LIGHT WITHIN REACH. WILL CONTINUE TO MONITOR.
--- NOTE | 2019-09-13 02:17 | NUR ---
PT ASLEEP WITH HOB ELEVATED. BIPAP IN PLACE. O2 SAT 98%. RESPIRATIONS EVEN AND UNLABORED. NO S/SX OF DISCOMFORT NOTED. PT KEPT SAFE AND COMFORTABLE. CALL LIGHT WITHIN REACH. WILL CONTINUE TO MONITOR.
[2019-09-13 04:00] VITALS: BP 102/66
--- NOTE | 2019-09-13 04:03 | NUR ---
VITAL SIGNS STABLE. PT IN BED WITH HOB ELEVATED. BIPAP IN PLACE. RESPIRATIONS EVEN AND UNLABORED. O2 SAT 98%. PT DENIES ANY PAIN OR DISCOMFORT AT THIS TIME. NO REQUESTS MADE. SAFETY MEASURES IN PLACE. CALL LIGHT WITHIN REACH. WILL CONTINUE TO MONITOR.
[2019-09-13] MEDS: BLOOD GLUCOSE MONITORING 1 DEV DEV FS SCH ×4 (06:20→20:45)
[2019-09-13] MEDS: INSULIN LISPRO SLIDING SCALE 100 UNITS/ML VIAL SUBQ PRN ×4 (06:21→20:48)
--- NOTE | 2019-09-13 06:23 | NUR ---
BLOOD SUGAR 171. INSULIN COVERAGE GIVEN ORDERED. WILL CONTINUE TO MONITOR.
[2019-09-13 06:24] LABS: BASOPHILS % (AUTO) 0.1 % (0.0-2.0); EOSINOPHILS % (AUTO) 0.1 % (0.0-4.0); HEMATOCRIT 38.9 % (36-48); HEMOGLOBIN 12.7 g/dL (12.0-16.0); LYMPHOCYTES # (AUTO) 0.9 K/uL (2.5-16.5); LYMPHOCYTES % (AUTO) 9.5 % (20.5-51.1); MEAN CORPUSCULAR HEMOGLOBIN 29 pg (27-31); MEAN CORPUSCULAR HGB CONC 33 g/dL (33-37); MEAN CORPUSCULAR VOLUME 89.5 fL (80-94); MONOCYTES # (AUTO) 0.5 K/uL (0.8-1.0); MONOCYTES % (AUTO) 5.1 % (1.7-9.3); NEUTROPHILS % (AUTO) 85.2 % (42.2-75.2); PLATELET COUNT (AUTO) 309 K/uL (140-450); RED BLOOD CELL COUNT(AUTO) 4.35 MIL/uL (4.20-5.40); RED CELL DISTRIBUTION WIDTH 15.3 % (11.6-13.7); WHITE BLOOD COUNT (AUTO) 9.4 K/uL (4.8-10.8)
[2019-09-13 06:53] LABS: ANION GAP 12.3 (8-16); CARBON DIOXIDE 30.3 mmol/L (21-32); CREATININE 0.6 mg/dL (0.6-1.3); POTASSIUM 3.6 mmol/L (3.5-5.1)
--- NOTE | 2019-09-13 07:12 | NUR ---
ENDORSED TO DAY SHIFT NURSE FOR CONTINUITY OF CARE. PT IS IN STABLE CONDITION.
--- NOTE | 2019-09-13 07:15 | NUR ---
RECEIVED REPORT FROM FLOOR COVERING PRINTER NURSE. PT IS AAOX4, ABLE TO MAKE NEEDS KNOWN. RESPIRATIONS EVEN AND UNLABORED. PT IS ON BIPAP FIO2 AT 50%. SKIN IS WARM, DRY, AND INTACT. NO ACUTE DISTRESS NOTED. PLAN OF CARE DISCUSSED. SAFETY MEASURES IN PLACE. CALL LIGHT WITHIN REACH. WILL CONTINUE TO MONITOR.
[2019-09-13 08:00] VITALS: BP 103/64
[2019-09-13] MEDS: ALBUTEROL SULFATE/IPRATROPIU 3 ML SOL IH SCH ×3 (08:15→19:45)
[2019-09-13] MEDS: VITAMIN D 400 IU TAB PO SCH (08:19)
[2019-09-13] MEDS: methylPREDNISolone SS 40 MG/ML VIAL IVP SCH ×2 (08:19→20:55)
[2019-09-13] MEDS: metFORMIN 500 MG TAB PO SCH (08:19)
[2019-09-13] MEDS: guaiFENesin 600 MG TABER PO SCH ×2 (08:20→20:54)
[2019-09-13] MEDS: LACTOBACILLUS RHAMNOSUS GG 1 EACH CAP PO SCH (08:20)
[2019-09-13] MEDS: ASCORBIC ACID 500 MG TAB PO SCH (08:20)
[2019-09-13] MEDS: ENOXAPARIN 100 MG/ML SYR SUBQ SCH ×2 (08:21→20:57)
--- NOTE | 2019-09-13 08:40 | NUR ---
RT CHECKED THE PATIENT. DECREASED FROM 50% TO 45%. PATIENT O2 SAT 94%. WILL CONTINUE TO MONITOR.
--- NOTE | 2019-09-13 08:48 | NUR ---
SCHEDULED MORNING MEDS GIVEN, EDUCATION PROVIDED, PATIENT TOLERATED WELL. BS LEVEL 99. O2 SAT 94% WITH BIPAP 45%. WILL CONTINUE TO MONITOR.
[2019-09-13] MEDS: ZINC SULF 220 MG CAP PO SCH ×2 (09:34→20:54)
--- NOTE | 2019-09-13 09:45 | NUR ---
RECEIVED CALL FROM Photos to Photos. PATIENT'S HR 143. SN CHECKED THE PATIENT, PT IS WITH THE PATIENT AND PERFORM EXERCISE. HR DECREASE TO 130. PER PT, PATIENT IS DOING OK. WILL CONTINUE TO MONITOR.
--- NOTE | 2019-09-13 11:05 | NUR ---
PATIENT RESTING IN BED, WITH BIPAP 45%, O2 SAT 94%, NOT IN ACUTE DISTRESS, WILL CONTINUE TO MONITOR.
[2019-09-13 12:00] VITALS: BP 119/72
[2019-09-13] MEDS: NACL 0.9% 1,000 ML IV SCH (13:10)
--- NOTE | 2019-09-13 13:35 | NUR ---
CHECKED THE PATIENT. RESTING IN BED, NOT IN ACUTE DISTRESS, O2 SAT 94%. PATIENT HAD 1 BM. SN CLEANED THE PATIENT. CALL LIGHT IN REACH, WILL CONTINUE TO MONITOR.
--- NOTE | 2019-09-13 15:15 | NUR ---
COVID SAMPLE COLLECTED AND SENT TO LAB. PT TOLERATED THE PROCEDURE WELL.
[2019-09-13 16:00] VITALS: BP 122/71
--- NOTE | 2019-09-13 17:29 | NUR ---
ADMINISTERED 2 UNITS OF HUMALOG WITH BS LEVEL 172. PATIENT TOLERATED THE PROCEDURE WELL.
--- NOTE | 2019-09-13 19:00 | NUR ---
RECEIVED BEDSIDE REPORT FROM DAY SHIFT NURSE FOR CONTINUITY OF CARE. PT IS A&O X 4, AWAKE AND ALERT. PT IS THAI SPEAKING BUT UNDERSTANDS MALTESE. RESPIRATIONS ARE EVEN AND UNLABORED ON BIPAP AT 45% OXYGEN. O2 SAT IS 90%. PT IS ST ON TELE MONITORING AT 111 HR. PT HAS A BANDAGE AROUND NOSE FOR SOME SKIN BREAKDOWN FROM THE BIPAP MACHINE. BOWEL SOUNDS WERE PRESENT IN ALL QUADRANTS. SKIN WAS WARM AND DRY. PT HAS A RIGHT FOREARM 22 GAUGE TKO RUNNING NS FLUID. BED IS IN LOWEST POSITION AND CALL LIGHT IS WITHIN REACH. PLAN OF CARE WAS DISCUSSED.
--- NOTE | 2019-09-13 19:30 | NUR ---
REPORT GIVEN TO FRUIT OR NUT FARM WORKER NURSE FOR CONTINUE OF CARE, PATIENT IS IN STABLE CONDITION AT THIS TIME.
--- NOTE | 2019-09-13 19:46 | NUR ---
RECEIVED REPORT FROM NOC SHIFT. PT SEEN AND ASSESSED. PT IS ON BiPAP SETTINGS IPAP 12, EPAP 5, BACK UP RATE 14, FiO2 45% WITH SPO2 OF 92%. AUSCULTATION REVEALS BILATERAL RALES BREATH SOUNDS. PT IN NO APPARENT RESPIRATORY DISTRESS AT THIS TIME. HHN TX GIVEN VIA INLINE AND PT TOLERATED WELL WITH NO ADVERSE REACTION. WILL CONTINUE TO MONITOR PT.
[2019-09-13 20:00] VITALS: BP 112/74
--- NOTE | 2019-09-13 21:00 | NUR ---
PT IS AWAKE AND ALERT USING HER PHONE IN BED. PT'S BREATHING IS UNLABORED AND EVEN WITH O2 SAT AT 89%. BIPAP IS IN PLACE AND PT IS ST ON TELE MONITORING. IT IS NOTED THAT PT DESATURATES WHEN MOVING AROUND OR DRINKING WATER BUT O2 SAT RETURNS TO 90%. WILL CONTINUE TO MONITOR.
--- NOTE | 2019-09-13 23:00 | NUR ---
PT IS USING BEDPAN WITH THE BIOMED TECH AT THE BEDSIDE. PT IS ABLE TO VOID AND REPOSITION HERSELF. O2 SAT IS 95% ON BIPAP 45% O2. BREATHING IS UNLABORED AND NO DISTRESS IS NOTED. CALL LIGHT IS WITHIN REACH.
[2019-09-14] VITALS: BP 117/76
--- NOTE | 2019-09-14 00:40 | NUR ---
PT IS ASLEEP. CHEST RISE AND FALL IS SYMMETRICAL. IV IS INFUSING AND PATENT TKO WITH NS SOLUTION. O2 SAT IS 94% ON BIPAP. NO DISTRESS NOTED AT THIS TIME.
--- NOTE | 2019-09-14 02:15 | NUR ---
PT IS ASLEEP. NO DISTRESS NOTED. BIPAP IS IN PLACE AND IV FLUIDS ARE RUNNING TKO WITH NS SOLUTION. O2 SAT IT 92%. PT IS STABLE AT THIS TIME.
[2019-09-14 04:00] VITALS: BP 112/74
--- NOTE | 2019-09-14 04:38 | NUR ---
PT WAS ASSISTED TO THE BEDPAN. PT VOIDED AND WENT BACK TO SLEEPING IN SEMI FOWLERS POSITION. PT TOLERATES ACTIVITY FAIRLY. O2 SAT IS NOW 96% ON BIPAP. IV IS RUNNING TKO AND CALL LIGHT IS WITHIN REACH. WILL CONTINUE TO MONITOR.
[2019-09-14 05:41] LABS: BASOPHILS % (AUTO) 0.2 % (0.0-2.0); EOSINOPHILS % (AUTO) 0.1 % (0.0-4.0); HEMATOCRIT 40.6 % (36-48); HEMOGLOBIN 13.2 g/dL (12.0-16.0); MEAN CORPUSCULAR HEMOGLOBIN 29 pg (27-31); MEAN CORPUSCULAR HGB CONC 33 g/dL (33-37); MEAN CORPUSCULAR VOLUME 89.7 fL (80-94); MONOCYTES # (AUTO) 0.6 K/uL (0.8-1.0); MONOCYTES % (AUTO) 5.3 % (1.7-9.3); NEUTROPHILS % (AUTO) 85.8 % (42.2-75.2); PLATELET COUNT (AUTO) 346 K/uL (140-450); RED BLOOD CELL COUNT(AUTO) 4.52 MIL/uL (4.20-5.40); RED CELL DISTRIBUTION WIDTH 15.5 % (11.6-13.7); WHITE BLOOD COUNT (AUTO) 11.7 K/uL (4.8-10.8)
[2019-09-14 05:57] LABS: LYMPHOCYTES % (AUTO) 8.6 % (20.5-51.1)
[2019-09-14] MEDS: BLOOD GLUCOSE MONITORING 1 DEV DEV FS SCH ×4 (06:11→21:00)
[2019-09-14 06:23] LABS: ANION GAP 13.4 (8-16); CARBON DIOXIDE 28.3 mmol/L (21-32); CREATININE 0.7 mg/dL (0.6-1.3); POTASSIUM 3.7 mmol/L (3.5-5.1)
--- NOTE | 2019-09-14 06:35 | NUR ---
PT IS AWAKE AND ALERT. O2 SAT IS 97% AT THIS TIME ON BIPAP. BANDAGE WAS CHANGED ON WOUND OF BRIDGE OF NOSE. MINIMAL AMOUNT OF DRAINAGE. BREATHING IS UNLABORED AND EVEN. NO DISTRESS NOTED.
--- NOTE | 2019-09-14 07:20 | NUR ---
ENDORSED PT TO DAY SHIFT NURSE FOR CONTINUITY OF CARE. PT IS STABLE AT THIS TIME.
--- NOTE | 2019-09-14 07:21 | NUR ---
RECEIVED REPORT FROM CONTINUING EDUCATION SPECIALIST NURSE. PT AWAKE IN BED. AOX4, NO SOB, RESPIRATIONS ARE EVEN AND UNLABORED, NO C/O PAIN. O2SAT 96% ON BIPAP FIO2 45%. WITH RFA 22G ON TKO. WITH NOSE BRIDGE SKIN TEAR. ISOLATION PRECAUTION OBSERVED, SAFETY PRECAUTIONS IN PLACE. CALL LIGHT WITHIN REACH. WILL CONTINUE TO MONITOR
[2019-09-14 08:00] VITALS: BP 119/66
[2019-09-14] MEDS: metFORMIN 500 MG TAB PO SCH (08:00)
[2019-09-14] MEDS: ALBUTEROL SULFATE/IPRATROPIU 3 ML SOL IH SCH ×3 (08:40→19:00)
--- NOTE | 2019-09-14 08:40 | NUR ---
PT REMAINS ON DOCUMENTED SETTINGS, NO DISTRESS NOTED. BIPAP PLUGGED INTO RED OUTLET, ALARMS ON AND FUNCTIONING, WILL CONTINUE TO MONITOR.
[2019-09-14] MEDS: VITAMIN D 400 IU TAB PO SCH (09:14)
[2019-09-14] MEDS: ZINC SULF 220 MG CAP PO SCH ×2 (09:14→21:45)
[2019-09-14] MEDS: ASCORBIC ACID 500 MG TAB PO SCH (09:14)
[2019-09-14] MEDS: guaiFENesin 600 MG TABER PO SCH ×2 (09:14→21:45)
[2019-09-14] MEDS: LACTOBACILLUS RHAMNOSUS GG 1 EACH CAP PO SCH (09:14)
[2019-09-14] MEDS: methylPREDNISolone SS 40 MG/ML VIAL IVP SCH ×2 (09:14→21:46)
[2019-09-14] MEDS: ENOXAPARIN 100 MG/ML SYR SUBQ SCH ×2 (09:15→21:46)
--- NOTE | 2019-09-14 09:30 | NUR ---
NOSE BRIDGE, FRICTION FROM BI-PAP. AREA DRY AND CLEAN, DRESSING IN PLACE, GEL PAD TO NOSE AND CHEEKS FOR PROTECTION. RECOMMENDATION: CLEANSE NOSE BRIDGE SKIN TEAR WITH NS, PAT DRY , APPLY VERSATEL DRESSING CHANGE Q5 DAYS AND PRN IF SOILING.
--- NOTE | 2019-09-14 09:30 | NUR ---
DUE MORNING MEDS GIVEN ORDERED. CRUSHED MEDS AND MIXED WITH WATER. TOLERATED PO MEDS WELL
--- NOTE | 2019-09-14 11:20 | NUR ---
PT AWAKE IN BED. NO C/O PAIN, ON BIPAP, O2SAT 90%
[2019-09-14 12:00] VITALS: BP 124/78
--- NOTE | 2019-09-14 12:00 | NUR ---
BLOOD SUGAR 142. NO COVERAGE
--- NOTE | 2019-09-14 12:10 | NUR ---
DRESSING CHANGED ON NOSE BRIDGE SKIN TEAR. VERSATEL APPLIED
[2019-09-14] MEDS: NACL 0.9% 1,000 ML IV SCH (12:48)
--- NOTE | 2019-09-14 14:37 | NUR ---
PT IN BED. NO S/S OF DISTRESS, ON BIPAP, O2SAT 93%
[2019-09-14 16:00] VITALS: BP 97/70
--- NOTE | 2019-09-14 16:10 | NUR ---
PT REMAINS ON BIPAP AND ON DOCUMENTED SETTINGS, TOLERATING WELL WITH NO DISTRESS. BIPAP PLUGGED INTO RED OUTLET, ALARMS ON AND FUNCTIONING.
--- NOTE | 2019-09-14 16:50 | NUR ---
BLOOD SUGAR 145. NO COVERAGE NEEDED
--- NOTE | 2019-09-14 18:51 | NUR ---
PT IN BED. NO C/O PAIN, BIPAP IN PLACE O2SAT 93%. WILL ENDORSE TO NEXT SHIFT FOR CONTINUITY OF CARE
--- NOTE | 2019-09-14 19:15 | NUR ---
PT WAS SWITCHED FROM BiPAP TO OXYMIZER 8L TO EAT DINNER. PT SPO2 91%. WILL CONTINUE TO MONITOR.
--- NOTE | 2019-09-14 19:25 | NUR ---
RECEIVED BEDSIDE REPORT FROM DAY SHIFT NURSE FOR CONTINUITY OF CARE. PT IS AWAKE AND ALERT. A&O X 4. SKIN IS WARM AND DRY. SKIN WOUND ON THE BRIDGE OF NOSE WITH VERSATIL AND BANDAID IN PLACE. PT IS ON BIPAP AT 45% WITH O2 SAT AT 93%. RESPIRATIONS ARE EVEN AND UNLABORED. PT IS ST ON TELE MONITORING. BEDPAN IS AT BEDSIDE FOR VOIDING. RIGHT FOREARM [address] WITH NS FLUIDS AT 10 ML PER HOUR. IV IS PATENT AND INTACT. BED IS IN LOWEST POSITION AND CALL LIGHT IS WITHIN REACH. PLAN OF CARE DISCUSSED.
[2019-09-14 20:00] VITALS: BP 106/64
--- NOTE | 2019-09-14 20:41 | NUR ---
RECEIVED REPORT FROM NOC SHIFT. PT SEEN AND ASSESSED. PT IS ON BiPAP SETTINGS IPAP 12, EPAP 5, BACK UP RATE 14, FiO2 45% WITH SPO2 OF 93%. AUSCULTATION REVEALS BILATERAL RALES BREATH SOUNDS. PT IN NO APPARENT RESPIRATORY DISTRESS AT THIS TIME. HHN TX GIVEN VIA INLINE AND PT TOLERATED WELL WITH NO ADVERSE REACTION. WILL CONTINUE TO MONITOR PT.
--- NOTE | 2019-09-14 21:00 | NUR ---
PT'S BS CHECK WAS 221. PT WAS COVERED WITH 4 UNITS OF HUMALOG ORDERED BY SLIDING SCALE.
--- NOTE | 2019-09-14 21:15 | NUR ---
PT IS SITTING UP, WATCHING TV. NEEDS ARE MET. O2 SAT IS 93% ON BIPAP. BREATHING IS LABORED. NO SIGNS OF DISTRESS NOTED.
[2019-09-14] MEDS: INSULIN LISPRO SLIDING SCALE 100 UNITS/ML VIAL SUBQ PRN (22:17)
--- NOTE | 2019-09-14 23:24 | NUR ---
PT IS AWAKE AND DRINKING WATER AT THE BEDSIDE. RESPIRATIONS ARE EVEN AND UNLABORED. PT HAS NO COMPLAINTS OF PAIN. CALL LIGHT IS WITHIN REACH. PT IS STABLE AT THIS TIME.
[2019-09-15] VITALS: BP 104/63
--- NOTE | 2019-09-15 01:00 | NUR ---
PT IS ASLEEP. CHEST RISE AND FALL IS SYMMETRICAL. O2 SAT IS 94% AND BREATHING IS UNLABORED. BEDSIDE TABLE IS NEARBY WITH BELONGINGS IN REACH. WILL CONTINUE TO MONITOR.
--- NOTE | 2019-09-15 03:00 | NUR ---
PT WAS PLACED ON BEDPAN AND HAD A BOWEL MOVEMENT AND VOIDED. PT REPOSITIONED SELF IN BED. PT IS STABLE AT THIS TIME.
[2019-09-15 04:00] VITALS: BP 116/74
--- NOTE | 2019-09-15 05:00 | NUR ---
PT IS AWAKE AND ALERT. PT IS ON PHONE IN BED IN SEMI FOWLERS POSITION. PT IS A&O X4. PT IS ON BIPAP AT 45% WITH O2 SAT AT 95%. NO DISTRESS NOTED.
--- NOTE | 2019-09-15 06:00 | NUR ---
PT'S BS CHECK WAS 130. NO COVERAGE NEEDED FOR INSULIN PER SLIDING SCALE.
[2019-09-15 06:14] LABS: BASOPHILS % (AUTO) 0.1 % (0.0-2.0); EOSINOPHILS % (AUTO) 0.4 % (0.0-4.0); HEMATOCRIT 40.6 % (36-48); HEMOGLOBIN 13.3 g/dL (12.0-16.0); LYMPHOCYTES # (AUTO) 0.9 K/uL (2.5-16.5); LYMPHOCYTES % (AUTO) 8.8 % (20.5-51.1); MEAN CORPUSCULAR HEMOGLOBIN 29 pg (27-31); MEAN CORPUSCULAR HGB CONC 33 g/dL (33-37); MEAN CORPUSCULAR VOLUME 89.7 fL (80-94); MONOCYTES # (AUTO) 0.5 K/uL (0.8-1.0); MONOCYTES % (AUTO) 4.9 % (1.7-9.3); NEUTROPHILS # (AUTO) 8.6 K/uL (1.8-7.7); NEUTROPHILS % (AUTO) 85.8 % (42.2-75.2); PLATELET COUNT (AUTO) 336 K/uL (140-450); RED BLOOD CELL COUNT(AUTO) 4.53 MIL/uL (4.20-5.40); RED CELL DISTRIBUTION WIDTH 15.4 % (11.6-13.7); WHITE BLOOD COUNT (AUTO) 10.1 K/uL (4.8-10.8)
[2019-09-15] MEDS: BLOOD GLUCOSE MONITORING 1 DEV DEV FS SCH ×4 (06:35→21:14)
[2019-09-15 06:52] LABS: ALBUMIN 3.2 g/dL (3.4-5.0); ANION GAP 12.2 (8-16); CARBON DIOXIDE 29.5 mmol/L (21-32); CREATININE 0.8 mg/dL (0.6-1.3); PHOSPHORUS 4.1 mg/dL (2.5-4.9); POTASSIUM 3.7 mmol/L (3.5-5.1); TOTAL BILIRUBIN 0.4 mg/dL (0.0-1.0)
--- NOTE | 2019-09-15 07:25 | NUR ---
ENDORSED PT TO DAY SHIFT NURSE FOR CONTINUITY OF CARE. PT IS STABLE AND PLAN OF CARE WAS DISCUSSED.
--- NOTE | 2019-09-15 07:35 | NUR ---
PT REMAINS ON BIPAP SUPPORT. NO DISTRESS NOTED. BIPAP PLUGGED INTO RED OUTLET, ALARMS ON AND FUNCTIONING, WILL CONTINUE TO MONITOR.
[2019-09-15 08:00] VITALS: BP 112/80
[2019-09-15] MEDS: metFORMIN 500 MG TAB PO SCH (08:00)
--- NOTE | 2019-09-15 09:20 | NUR ---
PLACED PT ON 8L OXYMIZER. SEEMS TO BE TOLERATING WELL AND SHOWS NO DISTRESS. ALSO INFORMED PT THAT IF SHE FEELS SOB AND WORK OF BREATHING INCREASES WE WILL PLACE HER BACK ON BIPAP. WILL CONTINUE TO MONITOR.
[2019-09-15] MEDS: ENOXAPARIN 100 MG/ML SYR SUBQ SCH ×2 (09:24→21:13)
[2019-09-15] MEDS: guaiFENesin 600 MG TABER PO SCH ×2 (09:27→21:11)
[2019-09-15] MEDS: ZINC SULF 220 MG CAP PO SCH ×2 (09:28→21:12)
[2019-09-15] MEDS: ASCORBIC ACID 500 MG TAB PO SCH (09:28)
[2019-09-15] MEDS: VITAMIN D 400 IU TAB PO SCH (09:29)
[2019-09-15] MEDS: LACTOBACILLUS RHAMNOSUS GG 1 EACH CAP PO SCH (09:29)
[2019-09-15] MEDS: methylPREDNISolone SS 40 MG/ML VIAL IVP SCH ×2 (09:30→21:11)
--- NOTE | 2019-09-15 09:30 | NUR ---
ADMINISTERED SCHED MED PRESCRIBED PER MD ORDER. PT TOLERATED WELL. MEDICATION EDUCATION PERFORMED. PT VERBALIZED UNDERSTANDING. SAFETY MEASURES IN PLACE. WILL CONTINUE TO MONITOR.
--- NOTE | 2019-09-15 11:30 | NUR ---
PT BLOOD SUGAR IS 168. PRN INSULIN WILL BE ADMINISTERED WITH NEXT MEAL. SAFETY MEASURES IN PLACE. WILL CONTINUE TO MONITOR
[2019-09-15 12:00] VITALS: BP 98/64
--- NOTE | 2019-09-15 12:15 | NUR ---
ADMINISTERED SCHED MED PRESCRIBED PER MD ORDER. PT TOLERATED WELL. MEDICATION EDUCATION PERFORMED. PT VERBALIZED UNDERSTANDING. SAFETY MEASURES IN PLACE. WILL CONTINUE TO MONITOR.
[2019-09-15] MEDS: INSULIN LISPRO SLIDING SCALE 100 UNITS/ML VIAL SUBQ PRN ×2 (12:22→17:57)
--- NOTE | 2019-09-15 12:45 | NUR ---
AMBULATED PT WITH PHYSICAL THERAPY AT THIS TIME. AMBULATED PT ON RA, DESAT TO ABOUT 65%. PLACED PT BACK ON OXYMIZER AT 6L. TOLERATING WELL WITH AN SPO2 READING 90%. WILL CONTINUE TO MONITOR.
--- NOTE | 2019-09-15 13:19 | NUR ---
FAXED ORDER FOR HOME 02 TO [facility]. WILL FOLLOW UP. Addendum: 09/15/19 at 1344 by Cherrie Suarez CM RECEIVED A CALL FROM AL AT [facility] [phone]. THIS PATIENT IS A [place] PAY PATIENT. I SPOKE TO THE PATIENTS AIXA HAYNES [phone] HE IS WILLING TO PAY OUT OF POCKET FOR THE HOME 02. HE STATED THAT HE WILL PICK IT UP FROM [facility] IN [place]. I CALLED AL BACK AND LEFT A VOICEMAIL FOR HIM TO CONTACT THE TO PROVIDE HIM WITH THE ADDRESS OF THE [facility] OFFICE. WILL FOLLOW UP. Addendum: 09/15/19 at 1410 by Cherrie Suarez CM SPOKE TO PATIENTS AGAIN HE IS NOW REQUESTING THAT THE HOME 02 IS DELIVERED INSTEAD OF HIM PICKING IT UP. NOTIFIED AL AT [facility]. Addendum: 09/15/19 at 1455 by Dania Almendarez LATE ENTRY FOR 1300: PER [place] DIRECTOR OF CARDIO-PULM, THEY WALKED THE PATIENT ON ROOM AIR. PATIENT DESATTED TO 65% AND WAS PLACED TO NC AT 6 LPM, O2 SAT 90%. DR. FLYNN MADE AWARE. Addendum: 09/15/19 at 1512 by Cherrie Suarez CM AL FROM [facility] CONTACTED ME HE SPOKE TO PATIENTS TO COLLECT PAYMENT. THE PT'S IS ON HIS WAY TO [facility] AND WILL DELIVER IT TO THE HOSPITAL.
[2019-09-15] MEDS: NACL 0.9% 1,000 ML IV SCH (13:31)
--- NOTE | 2019-09-15 13:31 | NUR ---
ADMINISTERED SCHED MED PRESCRIBED PER MD ORDER. PT TOLERATED WELL. MEDICATION EDUCATION PERFORMED. PT VERBALIZED UNDERSTANDING. SAFETY MEASURES IN PLACE. WILL CONTINUE TO MONITOR.
[2019-09-15 16:00] VITALS: BP 103/53
--- NOTE | 2019-09-15 16:18 | NUR ---
PLACED PT ON 5L NC WITH BUBBLE HUMIDIFIER. PT IS TOLERATING WELL , MAINTAINING A SATURATION OF 91-92%. NO DISTRESS NOTED, WILL CONTINUE TO MONITOR.
--- NOTE | 2019-09-15 16:30 | NUR ---
PT BLOOD SUGAR IS 182. PRN INSULIN WILL BE ADMINISTERED WITH NEXT MEAL. SAFETY MEASURES IN PLACE. WILL CONTINUE TO MONITOR
--- NOTE | 2019-09-15 17:45 | NUR ---
ADMINISTERED SCHED MED PRESCRIBED PER MD ORDER. PT TOLERATED WELL. MEDICATION EDUCATION PERFORMED. PT VERBALIZED UNDERSTANDING. SAFETY MEASURES IN PLACE. WILL CONTINUE TO MONITOR.
--- NOTE | 2019-09-15 18:15 | NUR ---
FAMILY BROUGHT PORTABLE OXYGEN TANK FOR PATIENT TO TAKE HOME. TANK PLACED IN PT ROOM. WILL CONTINUE TO MONITOR
--- NOTE | 2019-09-15 19:10 | NUR ---
ENDORSED TO NIGHTSHIFT FOR CONTINUITY OF CARE. PT IS STABLE.
--- NOTE | 2019-09-15 19:12 | NUR ---
RECEIVED REPORT FROM ASAF HARPER PT IS STABLE AT THIS TIME WILL CONTINUE WITH POC
[2019-09-15 20:00] VITALS: BP 120/80
--- NOTE | 2019-09-15 20:40 | NUR ---
RECEIVED PT FROM AM SHIFT. PT SEEN AND ASSESSED. PT ON 5L NC WITH SPO2 OF 94%. CLEAR BREATH SOUNDS ON AUSCULTATION. PT IN NO APPARENT RESPIRATORY DISTRESS AT THIS TIME. PRN TX NOT INDICATED AT THIS TIME. WILL CONTINUE TO MONITOR PT.
--- NOTE | 2019-09-15 21:20 | NUR ---
PT. RESTING IN BED REMAINS ON 5 L NC WITH SPO2 95-97%. PT COMMUNICATES APPROPRIATELY AWAKE AND ORIENTED X 4. TOLERATED PO MEDICATION CRUSHED AND GIVEN IN WATER. PT. DENIES ANY SOB OR CHEST PAIN AT THIS TIME. EXCITED AND LOOKING FORWARD TO DISCHARGE. V/S: 99.1, 93, 20, 120/80, 95 % ON 5L NC. BS WAS 139 NO COVERAGE NEEDED. SKIN TEAR ON NOSE IS HEALING CLEAN AND DRY, DENIED WANTING ANY TREATMENT. WILL CONTINUE WITH POC
--- NOTE | 2019-09-15 23:50 | NUR ---
PT RESTING IN BED WITH EYES OPEN WATCHING TV. IN NO DISTRESS. RESPIRATION EVEN AND UNLABORED. REMAINS ON 5L NC ALL NEEDS MET AT THIS TIME.
[2019-09-16] VITALS: BP 113/72
--- NOTE | 2019-09-16 01:34 | NUR ---
PT RESTING IN BED AWAKE REMAINS ON 5 L NC WITH SP02 93-95% IN NO DISTRESS. WILL CONTINUE TO MONITOR
--- NOTE | 2019-09-16 03:19 | NUR ---
PT AWAKE IN SEMI-FOWLERS POSITION SPO2 AT 96 % WITH 5L NC. PT REQUESTING BEDPAN. PT ASSISTED RESPIRATION EVEN AND UNLABORED. WILL CONTINUE TO MONITOR.
[2019-09-16 04:00] VITALS: BP 110/70
--- NOTE | 2019-09-16 05:25 | NUR ---
PT RESTING IN BED WITH EYES CLOSED. RESPIRATION EVEN AND UNLABORED. SPO2 95-97% ON 5L NC. WILL CONTINUE TO MONITOR.
[2019-09-16] MEDS: BLOOD GLUCOSE MONITORING 1 DEV DEV FS SCH ×4 (06:12→21:02)
[2019-09-16 06:42] LABS: BASOPHILS % (AUTO) 0.2 % (0.0-2.0); EOSINOPHILS % (AUTO) 0.2 % (0.0-4.0); HEMATOCRIT 40.6 % (36-48); HEMOGLOBIN 13.4 g/dL (12.0-16.0); LYMPHOCYTES # (AUTO) 1.2 K/uL (2.5-16.5); LYMPHOCYTES % (AUTO) 8.3 % (20.5-51.1); MEAN CORPUSCULAR HEMOGLOBIN 29 pg (27-31); MEAN CORPUSCULAR HGB CONC 33 g/dL (33-37); MEAN CORPUSCULAR VOLUME 89.2 fL (80-94); MONOCYTES # (AUTO) 1.1 K/uL (0.8-1.0); MONOCYTES % (AUTO) 7.5 % (1.7-9.3); NEUTROPHILS # (AUTO) 11.8 K/uL (1.8-7.7); NEUTROPHILS % (AUTO) 83.8 % (42.2-75.2); PLATELET COUNT (AUTO) 329 K/uL (140-450); RED BLOOD CELL COUNT(AUTO) 4.55 MIL/uL (4.20-5.40); RED CELL DISTRIBUTION WIDTH 15.3 % (11.6-13.7); WHITE BLOOD COUNT (AUTO) 14.1 K/uL (4.8-10.8)
--- NOTE | 2019-09-16 06:52 | NUR ---
BS 143. NO COVERAGE NEEDED. PT EDUCATED ON S/S TO REPORT. WILL CONTINUE TO MONITOR.
--- NOTE | 2019-09-16 07:19 | NUR ---
RECEIVED REPORT FROM NIGHT NURSE FOR CONTINUITY OF CARE, PT IS STABLE, PT IS ASLEEP, PT ON 5L OXYGEN VIA NC, PT HAS RIGHT FA 22G INFUSING NS TKO, PT HAS A SKIN TEAR ON THE BRIDGE OF THE NOSE, UPDATED WHITEBOARD, NO SIGNS OF DISTRESS NOTED, CALL LIGHT WITHIN REACH.
--- NOTE | 2019-09-16 07:20 | NUR ---
BEDSIDE REPORT GIVEN TO AM RN FOR CONTINUITY OF CARE. PT IS STABLE
[2019-09-16 07:49] LABS: ALBUMIN 3.3 g/dL (3.4-5.0); CARBON DIOXIDE 27.5 mmol/L (21-32); CREATININE 0.6 mg/dL (0.6-1.3); MAGNESIUM 2.2 mg/dL (1.8-2.4); POTASSIUM 3.5 mmol/L (3.5-5.1); TOTAL BILIRUBIN 0.5 mg/dL (0.0-1.0)
[2019-09-16 08:00] VITALS: BP 107/76
[2019-09-16] MEDS: ENOXAPARIN 100 MG/ML SYR SUBQ SCH ×2 (09:13→21:10)
[2019-09-16] MEDS: metFORMIN 500 MG TAB PO SCH (09:14)
[2019-09-16] MEDS: methylPREDNISolone SS 40 MG/ML VIAL IVP SCH ×2 (09:14→21:04)
[2019-09-16] MEDS: guaiFENesin 600 MG TABER PO SCH ×2 (09:15→21:05)
[2019-09-16] MEDS: VITAMIN D 400 IU TAB PO SCH (09:15)
[2019-09-16] MEDS: ZINC SULF 220 MG CAP PO SCH ×2 (09:15→21:05)
[2019-09-16] MEDS: LACTOBACILLUS RHAMNOSUS GG 1 EACH CAP PO SCH (09:15)
--- NOTE | 2019-09-16 09:15 | NUR ---
PT ON 5LPM NC SEEMS TO BE SARAH WELL SPO2 .93 PT AWAKE AND ALERT WILL CONTINUE TO MONITOR PT
[2019-09-16] MEDS: ASCORBIC ACID 500 MG TAB PO SCH (09:17)
--- NOTE | 2019-09-16 09:28 | NUR ---
ADMINISTERED SCHEDULED MEDICATION, MEDICATION EDUCATION GIVEN, PT VERBALIZED UNDERSTANDING, PT TOLERATED WELL, PT IS STABLE, PT ON 5L NC OXYGEN, CALL LIGHT WITHIN REACH.
--- NOTE | 2019-09-16 11:30 | NUR ---
PT BLOOD GLUCOSE IS 179, PT IS STABLE, NO SIGNS OF DISTRESS NOTED, CALL LIGHT WITHIN REACH.
[2019-09-16 12:00] VITALS: BP 118/72
[2019-09-16] MEDS: INSULIN LISPRO SLIDING SCALE 100 UNITS/ML VIAL SUBQ PRN ×2 (12:45→16:44)
--- NOTE | 2019-09-16 12:46 | NUR ---
ADMINISTERED 2 UNITS OF HUMALOG FOR BLOOD GLUCOSE OF 179, MEDICATION EDUCATION GIVEN, PT VERBALIZED UNDERSTANDING, PT TOLERATED WELL, PT IS STABLE, NO SIGNS OF DISTRESS, CALL LIGHT WITHIN REACH
[2019-09-16] MEDS: NACL 0.9% 1,000 ML IV SCH (13:10)
--- NOTE | 2019-09-16 15:04 | NUR ---
PT ASLEEP IN BED, PT ON 5L OXYGEN VIA NASAL CANNULA, NO SIGNS OF DISTRESS NOTED, CALL LIGHT WITHIN REACH.
[2019-09-16 16:00] VITALS: BP 117/70
--- NOTE | 2019-09-16 16:46 | NUR ---
ADMINISTERED 2 UNITS OF HUMALOG FOR BLOOD GLUCOSE OF 165, MEDICATION EDUCATION GIVEN, PT VERBALIZED UNDERSTANDING, PT TOLERATED WELL, PT IS STABLE, CALL LIGHT WITHIN REACH.
--- NOTE | 2019-09-16 19:16 | NUR ---
ENDORSE PT TO NIGHT NURSE FOR CONTINUITY OF CARE, PT IS STABLE
--- NOTE | 2019-09-16 19:17 | NUR ---
RECEIVED REPORT FROM AM RN. PT IS STABLE IN NO DISTRESS. RESPIRATION EVEN AND UNLABORED. REMAINS ON 5 L NC AT 93-96% WILL CONTINUE WITH POC.
[2019-09-16 20:00] VITALS: BP 119/72
--- NOTE | 2019-09-16 21:30 | NUR ---
PT RESTING IN BED AWAKE WATCHING TV. IN NO DISTRESS CONTINUES ON 5L NC WITH SPO2 96%. TOLERATED PO MEDICATION WITH NO PROBLEM. COMMUNICATES APPROPRIATELY ASHLEY ANY PAIN AT THIS TIME. BS 145 NO COVERAGE NEEDED. V/S: 97.9, 120, 22, 119/72, 96 % 5L NC. PT REQUEST BED DE LA O AND WAS ASSISTED VOIDED X 1. WILL CONTINUE WITH POC.
--- NOTE | 2019-09-16 23:35 | NUR ---
PT IN BED AWAKE RESPIRATION EVEN AND UNLABORED IN NO DISTRESS. REMAINS ON 5L NC WITH SP02 95%.
[2019-09-17] VITALS: BP 116/69
--- NOTE | 2019-09-17 | NUR ---
MIDNIGHT NOTE: PATIENT RESTING IN BED. RESPIRATIONS ARE EVEN AND UNLABORED. NO SIGNS OF DISTRESS NOTED. 2L NC Sp02 AT 96%. ABLE TO USE THE INCENTIVE SPIROMETER. SKIN WARM TO TOUCH AND INTACT. SAFETY PRECAUTIONS IN PLACE. BED AT LOW POSITION, SIDE RAILS UPX2, CALL LIGHT WITHIN REACH, ABLE TO MAKE NEEDS KNOWN.
--- NOTE | 2019-09-17 00:52 | NUR ---
AWAKE IN NO DISTRESS. REQUEST BED DE LA O AND VOIDED X 1 NO COMPLICATIONS. V/S: 98.3, 103, 24, 116/69, 95 % 5L NC
--- NOTE | 2019-09-17 02:16 | NUR ---
IN BED ASLEEP IN NO DISTRESS. RESPIRATION EVEN AND UNLABORED. 97% ON 5L NC. ALL NEEDS MET AT THIS TIME. CALL LIGHT WITHIN REACH. WILL CONTINUE TO MONITOR.
[2019-09-17 04:00] VITALS: BP 115/67
--- NOTE | 2019-09-17 04:15 | NUR ---
DURING ROUNDS PT. IS OBSERVED TO BE SLEEPING RESPIRATION EVEN AND UNLABORED IN NO DISTRESS. WILL CONTINUE TO MONITOR.
[2019-09-17] MEDS: BLOOD GLUCOSE MONITORING 1 DEV DEV FS SCH ×4 (06:15→21:36)
[2019-09-17 06:34] LABS: BASOPHILS # (AUTO) 0.1 K/uL (0.00-0.22); BASOPHILS % (AUTO) 0.5 % (0.0-2.0); EOSINOPHILS % (AUTO) 0.3 % (0.0-4.0); HEMATOCRIT 41.7 % (36-48); HEMOGLOBIN 13.5 g/dL (12.0-16.0); LYMPHOCYTES # (AUTO) 1.1 K/uL (2.5-16.5); LYMPHOCYTES % (AUTO) 7.8 % (20.5-51.1); MEAN CORPUSCULAR HEMOGLOBIN 29 pg (27-31); MEAN CORPUSCULAR HGB CONC 32 g/dL (33-37); MEAN CORPUSCULAR VOLUME 90.6 fL (80-94); MONOCYTES # (AUTO) 0.7 K/uL (0.8-1.0); MONOCYTES % (AUTO) 5.2 % (1.7-9.3); NEUTROPHILS # (AUTO) 11.8 K/uL (1.8-7.7); NEUTROPHILS % (AUTO) 86.2 % (42.2-75.2); PLATELET COUNT (AUTO) 338 K/uL (140-450); RED CELL DISTRIBUTION WIDTH 15.5 % (11.6-13.7); WHITE BLOOD COUNT (AUTO) 13.7 K/uL (4.8-10.8)
--- NOTE | 2019-09-17 06:43 | NUR ---
PT RESTING IN BED. BS 142 NO COVERAGE NEEDED. PT REMAINS ON 5L NC IN NO DISTRESS. PT HAD LAB DRAW THIS MORNING. WILL CONTINUE TO MONITOR.
--- NOTE | 2019-09-17 07:20 | NUR ---
RECEIVED REPORT FROM NIGHT NURSE FOR CONTINUITY OF CARE, PT IS STABLE ON 5L OXYGEN VIA NC, PT IS ASLEEP, PT HAS RIGHT FA 20G INFUSING NORMAL SALINE AT TKO, PT HAS SKIN TEAR ON BRIDGE OF NOSE, OPEN TO EAR, WILL INTRODUCE SELF AND UPDATE WHITE BOARD, BED IN LOW POSITION, SAFETY MEASURES IN PLACE, CALL LIGHT WITHIN REACH.
--- NOTE | 2019-09-17 07:25 | NUR ---
BEDSIDE REPORT GIVEN TO AM RN FOR CONTINUITY OF CARE. PT IS STABLE
[2019-09-17 08:00] VITALS: BP 98/63
[2019-09-17 08:39] LABS: ALBUMIN 3.4 g/dL (3.4-5.0); ANION GAP 15.7 (8-16); CARBON DIOXIDE 26.9 mmol/L (21-32); CREATININE 0.8 mg/dL (0.6-1.3); MAGNESIUM 2.2 mg/dL (1.8-2.4); POTASSIUM 3.6 mmol/L (3.5-5.1); TOTAL BILIRUBIN 0.4 mg/dL (0.0-1.0)
[2019-09-17] MEDS: metFORMIN 500 MG TAB PO SCH (08:39)
[2019-09-17] MEDS: VITAMIN D 400 IU TAB PO SCH (08:40)
[2019-09-17] MEDS: LACTOBACILLUS RHAMNOSUS GG 1 EACH CAP PO SCH (08:41)
[2019-09-17] MEDS: ASCORBIC ACID 500 MG TAB PO SCH (08:41)
[2019-09-17] MEDS: ZINC SULF 220 MG CAP PO SCH ×2 (08:41→21:16)
[2019-09-17] MEDS: ENOXAPARIN 100 MG/ML SYR SUBQ SCH (08:42)
[2019-09-17] MEDS: guaiFENesin 600 MG TABER PO SCH ×2 (08:42→21:15)
[2019-09-17] MEDS: methylPREDNISolone SS 40 MG/ML VIAL IVP SCH (08:46)
--- NOTE | 2019-09-17 08:54 | NUR ---
ADMINISTERED SCHEDULED MEDICATION, MEDICATION EDUCATION GIVEN, PT VERBALIZED UNDERSTANDING, PT TOLERATED WELL, PT IS STABLE, O2 SAT AT 93%, CALL LIGHT WITHIN REACH.
--- NOTE | 2019-09-17 10:47 | NUR ---
(09/17/19) RD FOLLOW UP COMPLETED PLEASE REFER TO NUTRITION PROGRESS NOTE UNDER CARE ACTIVITY FOR ESTIMATED NUTRITION NEEDS. RD RECOMMENDATIONS: 1. CONTINUE PUREE CCHO 60GM DIET TOLERATED 2. RDN TO D/C GLUCERNA 1 BOTTLE TID DUE TO PT CONSUMING 100% OF ALL MEALS; PT MEETING ESTIMATED NEEDS WITH PO MEAL INTAKES ALONE; NO NEED FOR ONS AT THIS TIME. 3. IF PTS PO MEAL INTAKES RETURN TO < 75% OVERALL AVERAGE, CONSIDER RESUMING GLUCERN 1 BOTTLE WITH MEALS TID. 4. RD TO FOLLOW-UP 5-7 DAYS, LOW RISK KAYODE MARIO, , RDN
--- NOTE | 2019-09-17 11:30 | NUR ---
BLOOD GLUCOSE IS 107, NO INSULIN COVERAGE NEEDED, PT IS STABLE, CALL LIGHT WITHIN REACH.
[2019-09-17 12:00] VITALS: BP 117/69
[2019-09-17] MEDS: NACL 0.9% 1,000 ML IV SCH (13:43)
--- NOTE | 2019-09-17 13:50 | NUR ---
AWAKE AND ALERT FOLLOWS FROZEN FOOD DEPARTMENT MANAGER COMMANDS SATURATION 95% ON HUMIDIFIED SUPPLEMENTAL OXYGEN AT 5 LPM VIA NC TITRATED FIO2 TO 4 LPM GILBERT /RN NOTIFIED
--- NOTE | 2019-09-17 13:57 | NUR ---
RECEIVED PT AWAKE, WATCHING TV, ON O2 AT 5LWITH HUMIDIFIER,, BIPAP OFF, RT AT BEDSIDE TITRATING THE O2, RT PUT O2 TO 4/L O2 /NC O2 SAT 95, INCENTIVE SPIROMETER ALSO GIVEN BY RT AND INSTRUCTION GIVEN, PATIENT STILL WITH ON AND OFF DRY COUGH,PATIENT COOPERATIVE.
--- NOTE | 2019-09-17 14:01 | NUR ---
AWAKE AND ALERT FOLLOWS PROJECT SYSTEMS ENGINEER COMMANDS TOLERATED INCENTIVE SPIROMETRY THERAPY WELL WITHOUT COMPLICATIONS INTERMITTENT STRONG NPC ENCOURAGED PATIENT WITH ACKNOWLEDGEMENT TO USE INCENTIVE SPIROMETRY EVERY 1-2 HOURS WHILE AWAKE
--- NOTE | 2019-09-17 14:41 | NUR ---
RECHECK O2 SAT WITHOUT O2 O2 SAT 88, PT CLAIMED I AM A LITTLE BIT DIZZY, PUT BACK O2 TO 2L O2 SAT WENT UP TO 95
--- NOTE | 2019-09-17 15:12 | NUR ---
REPORTED TO DR. LOCK PT CONDITION
--- NOTE | 2019-09-17 15:19 | NUR ---
ABLE TO USE INCENTIVE SPIROMETER 02 SAT SAT 91
--- NOTE | 2019-09-17 15:41 | NUR ---
O2 SAT 96, O2 AT 4L MIN, USING INCENTIVE SPIROMETER AT THIS TIME.
[2019-09-17 16:25] VITALS: BP 111/69
--- NOTE | 2019-09-17 16:28 | NUR ---
PT WITH DRY ON AND OFF COUGHING AT THIS TIME, ENCOURAGED TO REPOSITIONED, PT FOLLOW, CPT DONE GENTLY, O2 SAT 90
--- NOTE | 2019-09-17 18:38 | NUR ---
PT BRUSH HER TEETH , O2 SAT WENT DOWN TO 86, FINISHED EATING WITH GOOD APPETITE, CONTINUE ON O2 AT 4L/MIN WITH HUMIDIFIER , ENCOURAGED TO TURN TO SIDE, PT CHANGED POSITION, PT FACING THE DOOR, O2 SAT 92.
--- NOTE | 2019-09-17 19:09 | NUR ---
ENDORSED TO INCOMING SHIFT
[2019-09-17 20:00] VITALS: BP 122/59
--- NOTE | 2019-09-17 20:00 | NUR ---
INITIAL NOTE: RECEIVED PT A/O X4. RESPIRATIONS ARE EVEN AND UNLABORED. O2 SAT N/C AT 4L WITH HUMIDIFIER. ABLE TO USE THE INCENTIVE SPIROMETER. SKIN WARM TO TOUCH AND INTACT. SAFETY PRECAUTIONS IN PLACE. BED AT LOW POSITION, SIDE RAILS UPX2, CALL LIGHT WITHIN REACH, ABLE TO MAKE NEEDS KNOWN.
[2019-09-17] MEDS: APIXABAN 2.5 MG TAB PO SCH (21:31)
[2019-09-17] MEDS: INSULIN LISPRO SLIDING SCALE 100 UNITS/ML VIAL SUBQ PRN (21:34)
[2019-09-18] VITALS: BP 120/60
--- NOTE | 2019-09-18 | NUR ---
MIDNIGHT NOTE: PATIENT RESTING IN BED. RESPIRATIONS ARE EVEN AND UNLABORED. O2 SAT N/C AT 4L WITH HUMIDIFIER. NO SIGNS OF DISTRESS NOTED. SAFETY PRECAUTIONS IN PLACE. BED AT LOW POSITION, SIDE RAILS UPX2, CALL LIGHT WITHIN REACH, ABLE TO MAKE NEEDS KNOWN.
--- NOTE | 2019-09-18 03:43 | NUR ---
0315 PT TITRATED TO 3LNC PT SPO2 MID 90s THROUGHOUT NIGHT PT TOLERATED WELL AND MAINTAINED SPO2 IN MID 90s PT IS NOW AWAKE AND DENIES ANY SOB W/ NO DISTRESS NOTED
[2019-09-18 04:00] VITALS: BP 109/71
[2019-09-18 06:14] LABS: BASOPHILS % (AUTO) 0.3 % (0.0-2.0); EOSINOPHILS # (AUTO) 0.3 K/uL (0-0.4); EOSINOPHILS % (AUTO) 2.7 % (0.0-4.0); HEMATOCRIT 39.8 % (36-48); LYMPHOCYTES # (AUTO) 2.2 K/uL (2.5-16.5); LYMPHOCYTES % (AUTO) 19.8 % (20.5-51.1); MEAN CORPUSCULAR HEMOGLOBIN 29 pg (27-31); MEAN CORPUSCULAR HGB CONC 33 g/dL (33-37); MEAN CORPUSCULAR VOLUME 89.9 fL (80-94); MONOCYTES # (AUTO) 0.9 K/uL (0.8-1.0); MONOCYTES % (AUTO) 8.4 % (1.7-9.3); NEUTROPHILS # (AUTO) 7.6 K/uL (1.8-7.7); NEUTROPHILS % (AUTO) 68.8 % (42.2-75.2); PLATELET COUNT (AUTO) 312 K/uL (140-450); RED BLOOD CELL COUNT(AUTO) 4.43 MIL/uL (4.20-5.40); RED CELL DISTRIBUTION WIDTH 15.8 % (11.6-13.7)
[2019-09-18] MEDS: BLOOD GLUCOSE MONITORING 1 DEV DEV FS SCH ×4 (07:09→20:59)
--- NOTE | 2019-09-18 07:30 | NUR ---
RECEIVED REPORT FROM OPERATIONS PROFESSIONAL NURSE FOR CONTINUITY OF CARE. PATIENT RESTING IN BED, AWAKE, AAO X4, ABLE TO MAKE NEEDS KNOW. PATIENT DENIES PAIN, SOB OR DISCOMFORT. PLAN OF CARE DISCUSSED. SAFETY MEASURES IN PLACE, WILL CONTINUE TO MONITOR.
--- NOTE | 2019-09-18 07:37 | NUR ---
CLOSING NOTE: PATIENT RESTING IN BED. RESPIRATIONS ARE EVEN AND UNLABORED. O2 SAT N/C AT 5L WITH HUMIDIFIER. NO SIGNS OF DISTRESS NOTED. SAFETY PRECAUTIONS IN PLACE. BED AT LOW POSITION, SIDE RAILS UPX2, CALL LIGHT WITHIN REACH, ABLE TO MAKE NEEDS KNOWN. WILL ENDORSE TO FOLLOWING NURSE FOR CONTINUING CARE.
[2019-09-18 08:00] VITALS: BP 103/64
[2019-09-18] MEDS: ASCORBIC ACID 500 MG TAB PO SCH (09:49)
[2019-09-18] MEDS: metFORMIN 500 MG TAB PO SCH (09:49)
[2019-09-18] MEDS: predniSONE 20 MG TAB PO SCH (09:50)
[2019-09-18] MEDS: VITAMIN D 400 IU TAB PO SCH (09:50)
[2019-09-18] MEDS: guaiFENesin 600 MG TABER PO SCH ×2 (09:50→21:00)
[2019-09-18] MEDS: ZINC SULF 220 MG CAP PO SCH ×2 (09:50→21:00)
[2019-09-18] MEDS: LACTOBACILLUS RHAMNOSUS GG 1 EACH CAP PO SCH (09:51)
[2019-09-18] MEDS: APIXABAN 2.5 MG TAB PO SCH ×2 (09:54→21:10)
--- NOTE | 2019-09-18 09:54 | NUR ---
SCHEDULED MEDICATION GIVEN, EDUCATION PROVIDED, PATIENT TOLERATED WELL. PATIENT IS ON OXYGEN 3L/MIN VIA NC, O2 SAT 94%. SAFETY MEASURES IN PLACE. WILL CONTINUE TO MONITOR.
--- NOTE | 2019-09-18 12:10 | NUR ---
2 UNITS OF HUMALOG GIVEN WITH GLUCOSE LEVEL 186. EDUCATION PROVIDED, PATIENT TOLERATED WELL. PATIENT SITTING IN CHAIR WITH OXYGEN 3L/MIN VIA NC, NO ACUTE DISTRESS NOTED. WILL CONTINUE TO MONITOR.
--- NOTE | 2019-09-18 13:00 | NUR ---
PATIENT'S OPEN WOUND AT NOSE BRIDGE HEALED, NO MORE WOUND ASSESSMENT AND CARE NEEDED.
[2019-09-18] MEDS: NACL 0.9% 1,000 ML IV SCH (13:10)
[2019-09-18] MEDS: INSULIN LISPRO SLIDING SCALE 100 UNITS/ML VIAL SUBQ PRN ×3 (13:58→21:25)
--- NOTE | 2019-09-18 14:10 | NUR ---
DR. WANG CHECKED THE PATIENT AT THE BEDSIDE. DR. WANG WALKED THE PATIENT WITH O2, HOWEVER, PATIENT'S O2 SAT DESATURATED TO LOW 80S. HOLD DC TODAY. PER PATIENT WILL BE DC HOME WITH HOME OXYGEN IF PATIENT'S O2 SAT KEEP >90% WITH OXYGEN WHEN AMBULATORY TOLERATED.
[2019-09-18 16:00] VITALS: BP 118/82
--- NOTE | 2019-09-18 18:05 | NUR ---
4 UNITS OF HUMALOG ADMINISTERED WITH GLUCOSE LEVEL 208. EDUCATION PROVIDED. PATIENT TOLERATED WELL. O2 SAT 94% WITH 3L NC O2. DENIES PAIN OR DISCOMFORT. ENCOURAGED THE PATIENT TO PRACTICE WITH INHALE WITH INCENTIVE SPIROMETER. WILL CONTINUE TO MONITOR.
--- NOTE | 2019-09-18 19:24 | NUR ---
PT DENIES ANY SOB AND NO DISTRESS NOTED AT THIS TIME
--- NOTE | 2019-09-18 19:35 | NUR ---
ENDORSED PATIENT TO BRUSH FINISHER NURSE FOR CONTINUITY OF CARE. PATIENT RESTING IN BED WITH O2 SAT 93% 3L NC.
--- NOTE | 2019-09-18 19:36 | NUR ---
RECEIVED REPORT FROM ASAF RN. PT IS STABLE AT THIS TIME. REMAINS ON 3L NC WITH SPO2 93-95%. WILL CONTINUE WITH POC
--- NOTE | 2019-09-18 21:35 | NUR ---
PT IN BED SEMI-FOWLERS POSITION. TOLERATED PO MEDICATION CRUSHED IN WATER. BS: 158 RECEIVED 2 UNITS OF HUMALOG PER SLIDING SCALE. IN NO DISTRESS. ON 2L NC WITH SP02 94%. WILL CONTINUE TO MONITOR.
[2019-09-19] VITALS: BP 99/58
--- NOTE | 2019-09-19 00:05 | NUR ---
PT RESTING IN BED. IN NO DISTRESS. V/S: 98.1, 114, 20, 99/58, 94 % 3L NC. CALL LIGHT WITHIN REACH PT. WAS ASSISTED TO BEDPAN VOIDED X 1 WILL CONTINUE TO MONITOR.
--- NOTE | 2019-09-19 02:25 | NUR ---
RESTING IN BED WITH EYES CLOSED. RESPIRATION EVEN AND UNLABORED. SPO2 94% ON 3L NC. WILL CONTINUE TO MONITOR
--- NOTE | 2019-09-19 04:05 | NUR ---
DURING ROUNDS PT IS OBSERVED AWAKE WATCHING TV. DENIES ANY DISCOMFORT OR NEEDS AT THIS TIME. RESPIRATION EVEN AND UNLABORED. 93% ON 3L NC. WILL CONTINUE TO MONITOR.
[2019-09-19] MEDS: BLOOD GLUCOSE MONITORING 1 DEV DEV FS SCH ×4 (06:39→20:34)
[2019-09-19 06:40] LABS: BASOPHILS % (AUTO) 0.2 % (0.0-2.0); EOSINOPHILS # (AUTO) 0.2 K/uL (0-0.4); EOSINOPHILS % (AUTO) 1.9 % (0.0-4.0); HEMATOCRIT 37.6 % (36-48); HEMOGLOBIN 12.2 g/dL (12.0-16.0); LYMPHOCYTES # (AUTO) 2.1 K/uL (2.5-16.5); LYMPHOCYTES % (AUTO) 17.4 % (20.5-51.1); MEAN CORPUSCULAR HEMOGLOBIN 29 pg (27-31); MEAN CORPUSCULAR HGB CONC 33 g/dL (33-37); MEAN CORPUSCULAR VOLUME 89.8 fL (80-94); MONOCYTES # (AUTO) 1.1 K/uL (0.8-1.0); MONOCYTES % (AUTO) 8.7 % (1.7-9.3); NEUTROPHILS # (AUTO) 8.7 K/uL (1.8-7.7); NEUTROPHILS % (AUTO) 71.8 % (42.2-75.2); PLATELET COUNT (AUTO) 307 K/uL (140-450); RED BLOOD CELL COUNT(AUTO) 4.18 MIL/uL (4.20-5.40); RED CELL DISTRIBUTION WIDTH 15.4 % (11.6-13.7); WHITE BLOOD COUNT (AUTO) 12.1 K/uL (4.8-10.8)
--- NOTE | 2019-09-19 06:45 | NUR ---
PT RESTED THROUGHOUT THE NIGHT WITH NO DISTRESS. RESPIRATION EVEN AND UNLABORED. BS 96 NO COVERAGE NEEDED. REMAINS ON 3L NC 93-95%. CALL LIGHT WITHIN REACH . ALL NEEDS MET AT THIS TIME.
[2019-09-19 07:11] LABS: ALBUMIN 2.9 g/dL (3.4-5.0); ANION GAP 11.7 (8-16); CARBON DIOXIDE 28.3 mmol/L (21-32); CREATININE 0.6 mg/dL (0.6-1.3); PHOSPHORUS 3.2 mg/dL (2.5-4.9); TOTAL BILIRUBIN 0.5 mg/dL (0.0-1.0)
--- NOTE | 2019-09-19 07:37 | NUR ---
PT WILL BE ENDORSED TO AM RN FOR CONTINUITY OF CARE. PT IS STABLE 93-95% ON 3L NC.
[2019-09-19 08:00] VITALS: BP 95/64
[2019-09-19] MEDS: ASCORBIC ACID 500 MG TAB PO SCH (09:08)
[2019-09-19] MEDS: predniSONE 20 MG TAB PO SCH (09:08)
[2019-09-19] MEDS: VITAMIN D 400 IU TAB PO SCH (09:08)
[2019-09-19] MEDS: metFORMIN 500 MG TAB PO SCH (09:09)
[2019-09-19] MEDS: ZINC SULF 220 MG CAP PO SCH ×2 (09:09→20:58)
[2019-09-19] MEDS: LACTOBACILLUS RHAMNOSUS GG 1 EACH CAP PO SCH (09:09)
[2019-09-19] MEDS: APIXABAN 2.5 MG TAB PO SCH ×2 (09:32→20:56)
[2019-09-19] MEDS: INSULIN LISPRO SLIDING SCALE 100 UNITS/ML VIAL SUBQ PRN ×3 (12:30→20:52)
[2019-09-19] MEDS: guaiFENesin 600 MG TABER PO SCH ×2 (12:45→20:58)
[2019-09-19] MEDS ORDERED: APIX2.5 PO (17:34)
[2019-09-19] MEDS ORDERED: METF500T PO (17:34)
[2019-09-19] MEDS ORDERED: METH4TAB1 PO (17:38)
--- NOTE | 2019-09-19 19:05 | NUR ---
RECEIVED FROM PREVIOUS SHIFT OMAR, AM SHIFT , A, A O X 4 AMBULATORY, PT WITH 02 AT 3L/MIN 02 SAT AT 93% OXYGENATION. WITH R FA SALINE LOCK,PATENT, PLACED ON LOW BED. FOR DISCHARGE W/ O2 THERAPY TO BE CONTINUED AT HOME.
[2019-09-19 19:20] VITALS: BP 95/64
[2019-09-19] MEDS: NACL 0.9% 1,000 ML IV SCH (20:00)
--- NOTE | 2019-09-19 20:10 | NUR ---
PT MRSA WAS TAKEN BECAUSE PT IS MORE THAN 21 DAYS AT HOSPITAL. MRSA SWAB DONE
--- NOTE | 2019-09-19 20:35 | NUR ---
PT NS NOT CONTINUED PT IS FOR DISCHARGE, PT DRINKING FLUIDS IN A STRAW, ABLE TO TOLERATE FLUIDS
--- NOTE | 2019-09-19 21:00 | NUR ---
TAKEN PT'S BLOOD SUGAR, ADMINISTERED INSULIN ORDERED. ALSO ADMINISTERED MEDS. EXPLAINED TO PT SIDE EFFECTS.
--- NOTE | 2019-09-19 21:20 | NUR ---
PT'S TOOK OUT IVF NO BLEEDING ON SITE, NO SWELLING. PLACED PT ON WHEELCHAIR IN PREPARATION FOR DISCHARGE
--- NOTE | 2019-09-19 21:30 | NUR ---
PT WHEELED TO THE EXIT DISCHARGED,BY NACHO FELDMAN PT TOLERATING WELL ON HOME 02 AT 3 LPM; WITH 95% O2. PICKED UP BY . PLACED PT ON THE PATIENT'S CAR SLOWLY AND GENTLY.
== END 2019-09-19 21:30 | disposition home or self-care (01) | DRG 137 ==
LOC: MED 16:29 → EEVIPCON 16:29 → MTU 19:54 → MIC 08-13 04:36 → MMU 08-26 04:30
PROVIDERS: ADMIT General Practice; ATTEND General Practice
PROC: 5A09557 Assistance with Respiratory Ventilation, Greater than 96 Consecutive Hours, Continuous Positive Airway Pressure (ICD-10-PCS; principal; 2019-08-13)
PROC: XW13325 Transfusion of Convalescent Plasma (Nonautologous) into Peripheral Vein, Percutaneous Approach, New Technology Group 5 (ICD-10-PCS; 2019-08-15)
PROC: XW033E5 Introduction of Remdesivir Anti-infective into Peripheral Vein, Percutaneous Approach, New Technology Group 5 (ICD-10-PCS; 2019-08-15)
PROC: 5A09557 Assistance with Respiratory Ventilation, Greater than 96 Consecutive Hours, Continuous Positive Airway Pressure (ICD-10-PCS; 2019-08-20)
PROC: 5A09557 Assistance with Respiratory Ventilation, Greater than 96 Consecutive Hours, Continuous Positive Airway Pressure (ICD-10-PCS; 2019-09-06)
DX: U07.1 COVID-19 (principal); J96.01 Acute respiratory failure with hypoxia; I21.A1 Myocardial infarction type 2; J12.89 Other viral pneumonia; E66.9 Obesity, unspecified; E87.2 Acidosis; R65.10 Systemic inflammatory response syndrome (SIRS) of non-infectious origin without acute organ dysfunction; J96.21 Acute and chronic respiratory failure with hypoxia; E43 Unspecified severe protein-calorie malnutrition; Z68.41 Body mass index [BMI] 40.0-44.9, adult; E11.9 Type 2 diabetes mellitus without complications; E44.0 Moderate protein-calorie malnutrition; E66.01 Morbid (severe) obesity due to excess calories; E87.6 Hypokalemia; F41.1 Generalized anxiety disorder; Z79.84 Long term (current) use of oral hypoglycemic drugs
CPT/HCPCS: 36415; 36600; 71045; 80048; 80053; 80076; 80305; 81001; 81025; 82150; 82550; 82553; 82728; 82803; 82948; 83036; 83605; 83615; 83625; 83690; 83735; 83880; 84100; 84439; 84443; 84484; 85025; 85379; 85384; 85610; 85651; 85730; 86140; 86886; 86900; 86901; 86920; 87040; 87081; 87086; 87804; 93005; 94003; 94640; 94660; 96361; 96365; 96367; 96375; 97110; 97112; 97116; 97161-GP; 97530; 99291; J0456; J0696; J1100; J1650; J1815; J1940; J2001; J2060; J2543; J2920; J3480; J3490; J7030; J7060; J7512; P9017; Q0092; U0003-CS